=== PATIENT | female | born 1960 | race Caucasian/White ===

== ENCOUNTER 2019-04-22 07:51 | Outpatient (CLI) | payer OTHER, SELFPAY ==
--- NOTE | 2019-04-22 08:08 | DI.RAD_ITS ---
EXAM: XR HAND RT COMPLETE CLINICAL HISTORY: RT THUMB PAIN, M79.644 TECHNIQUE: COMPARISON: No exams were available for comparison FINDINGS: Three views were obtained. Cartilaginous joint spaces of hand appear fairly well maintained. There is minimal marginal osteophyte formation involving the IP joints. Patient reportedly has symptoms re parable to the thumb and the minimal degree of degenerative changes of the 1st MCP joint and IP joint of the thumb are released symmetrical with the minimal degenerative changes noted involving the IP j oints of fingers. IMPRESSION: Minimal DJD as described above.
== END 2019-04-22 08:11 ==
PROVIDERS: PCP Nurse Practitioner Adult Health; Visit Provider Nurse Practitioner Family
DX: M79.644 Pain in right finger(s) (principal); M19.041 Primary osteoarthritis, right hand
CPT/HCPCS: 73130

== ENCOUNTER 2021-04-11 15:08 | Outpatient (REF) | payer OTHER, SELFPAY ==
[2021-04-11 20:07] LABS: COVID-19 RT-PCR UVMMC Result Negative (Negative)
== END 2021-04-11 15:09 | disposition home or self-care (01) ==
LOC: LBN 15:08
PROVIDERS: PCP Nurse Practitioner Adult Health; Visit Provider Nurse Practitioner Family
DX: Z20.822 Contact with and (suspected) exposure to COVID-19 (principal)
CPT/HCPCS: U0003

== ENCOUNTER 2021-09-08 02:24 | Outpatient (CLI) | payer OTHER, SELFPAY ==
[2021-09-08 07:43] LABS: ESR 5 mm/hr (0-30)
[2021-09-08 08:11] LABS: Anion Gap 7.5 mmol/L (3-11); BUN 21 mg/dL (7-18); CO2 29.5 mmol/L (21.0-32.0); CREATININE 0.9 mg/dL (0.55-1.02); Calcium 8.6 mg/dL (8.5-10.1); Calculated LDL 99 mg/dL (<100); Chloride 105 mmol/L (98-107); Cholesterol 190 mg/dL (<200); Folate 12.5 ng/mL (8.6-20.0); Glucose 97 mg/dL (74-106); HDL Cholesterol 79 mg/dL (40-60); Potassium 3.6 mmol/L (3.5-5.1); Sodium 142 mmol/L (136-145); Triglyceride 61 mg/dL (<150)
[2021-09-08 08:24] LABS: Vitamin B12 302 pg/mL (193-986)
[2021-09-08 08:33] LABS: C-Reactive Protein 0.08 mg/dL (0.0-0.3); Creatine Kinase 71 U/L (26-192)
[2021-09-08 08:36] LABS: Hemoglobin A1C 5.8 % (<5.7)
[2021-09-08 09:06] LABS: Vitamin D 25 Total 51.4 ng/mL (30-100)
[2021-09-09 10:29] LABS: Lyme Ab w Rflx to Lyme Confirm Negative (Negative)
[2021-09-09 12:36] LABS: Albumin 60.8 % (55.8-66.1); Albumin g/dL 4.1 g/dL (3.6-5.2); Total Protein 6.7 g/dL (6.3-8.2)
== END 2021-09-08 02:25 | disposition home or self-care (01) ==
LOC: LBO 02:24
PROVIDERS: Psychiatry & Neurology Neurology; PCP Nurse Practitioner Adult Health; Visit Provider Nurse Practitioner Adult Health
DX: G62.9 Polyneuropathy, unspecified; R03.0 Elevated blood-pressure reading, without diagnosis of hypertension; Z13.220 Encounter for screening for lipoid disorders
CPT/HCPCS: 36415; 80048; 80061; 82306; 82550; 85652; 82607; 82746; 83036; 84165; 84443; 86140; 86618

== ENCOUNTER 2021-12-05 07:11 | Inpatient (IN) | payer OTHER, SELFPAY ==
[2021-12-05] VITALS (7 sets, daily range): BP systolic 120–154; BP diastolic 67–84; PULSE 63–90; RESP 14–20; TEMP 36.7–37.6; O2SAT 97–100
--- NOTE | 2021-12-05 07:15 | DI.CT_ITS ---
Exam(s) CT ABDOMEN PELVIS W EXAM: CT ABDOMEN PELVIS W CLINICAL HISTORY: LLQ pain, diarrhea, suspect diverticulitis. TECHNIQUE: Imaging Protocol: Axial computed tomography images with coronal and sagittal reformatted images were created and reviewed CONTRAST MATERIAL: Intravenous: Omnipaque 350 Contrast volume:84 ml Oral: no COMPARISON: No exams were available for comparison FINDINGS: ABDOMEN: Lung Bases: Normal where visualized. Liver: Normal density. No measurable mass. Gallbladder and biliary tract: No radiodense calculus or dilation. Pancreas: Normal density, no abnormal calcifications or inflammatory process. Spleen: Normal. Kidneys: Normal size, contour and axis. No radiodense stones or obstructive uropathy. Tiny bilateral cysts. No suspicious masses seen. Adrenal glands: No masses seen. Abdominal Aorta: Abdominal portion non-dilated. PELVIS: Bladder: No gross wall thickening. No calculi.No focal mass. Bowel: Diverticulosis is noted in the descending and sigmoid colon. There is extensive inflammation around the sigmoid consistent with diverticulitis. No abscess is seen. There are few bubbles of air in the mesentery consistent with micro perforation.. Appendix normal. Stomach and small bowel are unremarkable. Peritoneal cavity: Small amount of fluid is noted in the pelvis. Bones: Within normal limits for age. Reproductive organs: Within normal limits. Lymph nodes: Unremarkable. Impression: Sigmoid diverticulitis with microperforation. No abscess. Small amount of pelvic fluid. RADIATION DOSE DELIVERED: 665.38mGy.cm Total DLP DATA REPOSITORY: All CT scans at this facility are submitted to the National Radiology Data Registry (NRDR) Dose Index Registry (DIR) with the [employer] (ACR). RADIATION OPTIMIZATION: All CT scans at this facility use at least one of these dose optimization te chniques: automated exposure control; mA and/or kV adjustment per patient size (includes targeted exa ms where dose is matched to clinical indication); or iterative reconstruction.
--- OUTSIDE RECORDS SUMMARY | 2021-12-05 07:21 | XMS_ITS | Encounter Summary ---
:1960 Author Organization [facility] [place] [address] Care Team Providers Name Role Phone Randa Edward MD Primary Care Provider Reason for Visit Reason Onset Date Comments Results 02/28/2011 [email or web address] 03-01 Encounter Details Date Type Department Care Team Description 02/28/2011 Telephone [facility] Sudeep Lew Jr., [facility] [email or web address] [address] [facility] [address] 05-01-2010) [place] [address] [place] [address] [phone] (Wo rk) Social History Tobacco Use Types Packs/Day Years Used Date Never Assessed Sex Assigned at Date Recorded Not on file documented as of this encounter Miscellaneous Notes Telephone Encounter - Sudeep Lew Jr., MD - 03/02/2011 7:42 AM EST Result faxed documented in this encounter Plan of Treatment Not on filedocumented as of this encounter Visit Diagnoses Not on filedocumented in this encounter Care Teams Feedmobile Driver Relationship Specialty Start Date End Date Randa Edward MD PCP - General 03/08/11 07/31/11 documented as of this encounter
--- OUTSIDE RECORDS SUMMARY | 2021-12-05 07:21 | XMS_ITS | Encounter Summary ---
:1960 Demographics Phone Unavailable Preferred Language Unknown Marital Status Unknown Anglican Affiliation Unknown Race Unknown Ethnic Group Unknown Author Organization [facility] Address [address] [place] [address] Care Team Providers Name Role Phone Unavailable Primary Care Provider Unavailable Encounter Details Date Type Department Care Team Description 10/15/2007 Before PRISM Converted [facility] - Miladis Edward, Visit (Ginny) Ginny sequeira MD [address] [place] [address] [place], [place] [phone] Social History Tobacco Use Types Packs/Day Years Used Date Never Assessed Sex Assigned at Date Recorded Not on file documented as of this encounter Plan of Treatment Not on filedocumented as of this encounter Procedures Procedure Name Priority Date/Time Associated Diagnosis Comme [facility] CYTOPATHOLOGY Routine 10/15/2007 0:00 EDT Results for this procedure are i n the results section . documented in this encounter Results CYTOPATHOLOGY (10/15/2007 0:00 EDT) Pathology Report: CYTOPATHOLOGY REPORT ? [facility] ? LAB Reports generated via electr [employer] interface contain original data; ? however they are lacking the format of the original report. ? Caution should be taken when reading/interpreting unformatted reports. ? Name: ? PATRICIA, SIENA ? Accession #: ? [id number] ? : ? 1960 (Age: 46) ??F ?Collect Date: ? 10/15/2007 ? Location: ? [facility] ? Receive Date: ? 10/16/2007 ? Provider: ?MARINA S MITH MD ? Copy to: ? Specimen/Source: ? ThinPrep Pap Test, Endocervix, processed on Cytyc ? ThinPrep Imaging System, wit h manual evaluation ? Last Menstrual Period: ? Other: ? HPVA - HPV testing requested if ASC-US on the current ThinPrep Pap test. ? SPECIMEN ADEQUACY ? Satisfactory for Eval uation ? - transformation zone compon ent present ? GENERAL CATEGORIZATION ? Negative for Intraepi thelial Lesion or Malignancy ? Document reviewed and electr onically signed by: ? Magali Weston, SCT( ASCP) ? Report Date: ??07/23/ 2008 10:55 ? End of Report ? Specimen Performing Organization Address City/State/ZIP Code Phon e Number [facility] [address] [place] [phone] [facility] [address] [place] [address] documented in this encounter Visit Diagnoses Not on filedocumented in this encounter
--- OUTSIDE RECORDS SUMMARY | 2021-12-05 07:21 | XMS_ITS | Encounter Summary ---
:1960 Demographics Phone Unavailable Preferred Language Unknown Marital Status Unknown Moravian Affiliation Unknown Race Unknown Ethnic Group Unknown Author Organization [facility] Address [address] [place] [address] Care Team Providers Name Role Phone Unavailable Primary Care Provider Unavailable Encounter Details Date Type Department Care Team Description 02/15/2011 Results Only [facility] Zaki Edward MD Laboratory Services [place] [address] [address] [facility] [place] [address] [phone] Social History Tobacco Use Types Packs/Day Years Used Date Never Assessed Sex Assigned at Date Recorded Not on file documented as of this encounter Plan of Treatment Not on filedocumented as of this encounter Procedures Procedure Name Priority Date/Time Associated Diagnosis Comme nts PAP TEST- RESULT Routine 02/15/2011 0:00 EST Resu lts for this ONLY procedure are i n the results section. documented in this encounter Results PAP TEST- RESULT ONLY (02/15/2011 0:00 EST) Pathology Report: CYTOPATHOLOGY REPORT [facility] Reports generated via electronic interface contain rainer ginal data; however they are lacking the format of the original re port. Caution should be taken when reading/interpreting unfo rmatted reports. Name: ? SIENA GOMEZ ? Accession #: ? [id number] : ? 1960 (Age: 50) ??F ?Collect Date: ? 01/31 Location: ? [facility] ? Receive Date : ? 02/17/2011 Provider: ?MARINA EDWARD MD Copy to: ? Specimen/Source: ?Pap Test, En docervix, ThinPrep Imaging System with manual evaluation Last Menstrual Period: ? 2009 ? SPECIMEN ADEQUACY ? Satisfactory for Evaluation - transformation zone component present GENERAL CATEGORIZATION ? Negative for Intraepithelial Lesion or Malignan cy ? Document reviewed and electronically signed by: ? TANVIR Murray(ASCP) ? Report Date: ??02/22/2011 12:26 End of Report Specimen Performing Organization Address City/State/ZIP Code Phon e Number [facility] [address] [place] [address] [facility] [address] [place] [address] documented in this encounter Visit Diagnoses Not on filedocumented in this encounter
--- OUTSIDE RECORDS SUMMARY | 2021-12-05 07:21 | XMS_ITS | Encounter Summary ---
:1960 Author Organization [facility] [place] [address] Care Team Providers Name Role Phone Kaylin Walden APRN Primary Care Provider [phone] Reason for Visit Reason Comments Skin Check Consultation (Routine) - Specialty Diagnoses / Procedures Referred By Contact Refer red To Contact Dermatology Diagnoses Other specified disorders of the skin and subcutaneous tissue Skin Lesion; New Patient-Notes Received Kaylin Walden Hammer, Charle s J, MD Procedures Consult OIL CHANGE TECHNICIAN [address] [facility] [place] D[facility]MATOLOGY [place], [place] [phone] Referral ID Status Reason Start Date Expiration Date Visits V isits Requested Authorized [id number] Consult, Test 09/23/2019 09/22/2020 6 6 & Treat PCP Updated and/or Approved Encounter Details Date Type Department Care Team Description 03/22/2020 Office Visit Dermatology at Alexis Gutierrez, Seborrh eic keratosis Delia BHARDWAJ [address] [facility] [place] B DERMATOLOGY [place], [place] [id number] [phone] Social History Tobacco Use Types Packs/Day Years Used Date Former Smoker Cigarettes 0.25 7 Quit: 04/02/18 82 Smokeless Tobacco: Never Used Sex Assigned at Date Recorded Not on file documented as of this encounter Progress Notes Alexis Gutierrez MD - 03/22/2020 8:30 AM EST Problem: Changing lesion right anterior daniel 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 Her PCP Dr. Edward at the time recommend that this be checked and now she has decided to do so. Physical examination reveals a pleasant 59-year-old woman who has a flat seborrheic keratosis measuring about 10 mm in diameter with an ovoid shape on the lower right anterior daniel. At its inferior pole it has a hyperkeratotic papule consistent with additional seborrheic keratosis developing. There isno surrounding erythema nor induration. She has no other skin lesions of concern and does not tamar total body skin examination today. Assessment plan: Seborrheic keratosis right anterior daniel 1. Patient reassured about benign seborrheic keratosis and the benign changes that she is observed within it, namely the hyperkeratotic papule 2. No treatment necessary 3. Site is asymptomatic; return to clinic as needed CC: Kaylin Walden APRN documented in this encounter Plan of Treatment Not on filedocumented as of this encounter Visit Diagnoses Diagnosis Seborrheic keratosis Other seborrheic keratosis documented in this encounter Care Teams Yarding Engineer Relationship Specialty Start Date End Date Kaylin Walden APRN PCP - General Family Medicine 09/26/19 [place] [id number] documented as of this encounter
--- OUTSIDE RECORDS SUMMARY | 2021-12-05 07:21 | XMS_ITS | Encounter Summary ---
:1960 Demographics Phone Unavailable Preferred Language Unknown Marital Status Unknown Gnosticism Affiliation Unknown Race Unknown Ethnic Group Unknown Author Organization [facility] Address [address] [place] [address] Care Team Providers Name Role Phone Unavailable Primary Care Provider Unavailable Encounter Details Date Type Department Care Team Description 02/03/2021 Lab Requisition [facility] Outr Resulting Lab, Pathology & Laboratory Provider [facility] [address] [place] [address] Social History Tobacco Use Types Packs/Day Years Used Date Never Assessed Sex Assigned at Date Recorded Not on file documented as of this encounter Plan of Treatment Not on filedocumented as of this encounter Procedures Procedure Name Priority Date/Time Associated Diagnosis Comme nts COVID-19 TEST [facility] Today 02/02/2021 8:00 EDT LAB PCR COVID-19 TESTING Routine 02/02/2021 8:00 EDT Resu lts for this procedure are i n the results section. documented in this encounter Results COVID-19 TEST [facility] LAB PCR (02/02/2021 8:00 EDT) Specimen Swab - Entire nasopharynx (body structur e) Performing Organization Address City/State/ZIP Code Phon e Number [facility] [address] [place] [address] SERVICES COVID-19 TESTING (02/02/2021 8:00 EDT) COVID-19 rt-PCR Negative Negative [facility] Result Comment: [facility] This test has not been FDA c leared or approved. This test has been authorized by FDA under an EUA for use by authorized laboratories. This test has been authorized only for detection of nucleic acid fro SERVICES m 2019-nCoV, not for any oth er viruses or pathogens. This test is only authorized for the duration of the declaration that circumstances exist justifying the authorization of emergency use of in vitro d iagnostic tests for detectio n and/or diagnosis of 2019-nCoV under section 564(b)(1) of Act, 21 U.S.C ?? 360bbb-3(b) (1), unless the authorization is terminated or revoked sooner. Negative results do not prec lude 2019-nCoV infection and should not be used as the sole basis for treatment or other patient management decisions. Negative results must be combined with clinical observa tions, patient history, and epidemiological informatio n. Performed on the [employer]her Fusion instrument Performing Lab [place] [facility] Lab [facility] SERVICES Specimen Swab Performing Organization Address City/State/ZIP Code Phon e Number [facility] [address] [phone] SERVICES documented in this encounter Visit Diagnoses Not on filedocumented in this encounter
--- OUTSIDE RECORDS SUMMARY | 2021-12-05 07:21 | XMS_ITS | Encounter Summary ---
:1960 Author Organization [facility] [place] [address] Care Team Providers Name Role Phone Marina Edward MD Primary Care Provider Reason for Visit Reason Comments Palpitations Started last Apr before her bike trip. Did have some dizziness Encounter Details Date Type Department Care Team Description 03/08/2011 Office Visit [facility] Sudeep Lew Jr., SV T (supraventricular tachycardia) (Primary Dx); [facility] Palpitations [address] [place] [address] [place] [address] [phone] (Wo rk) Social History Tobacco Use Types Packs/Day Years Used Date Former Smoker Cigarettes 0.25 7 Quit: 04/02/18 80 Smokeless Tobacco: Never Used Sex Assigned at Date Recorded Not on file documented as of this encounter Last Filed Vital Signs Vital Sign Reading Time Taken Comments Blood Pressure 110/80 03/08/2011 4:12 PM EST standing Pulse 54 03/08/2011 4:03 PM EST reg Temperature - - Respiratory Rate - - Oxygen Saturation - - Inhaled Oxygen Concentration - - Weight 62.6 kg (138 lb) 03/08/2011 4:03 PM EST Height 167.6 cm (5' 6) 03/08/2011 4:03 PM EST Body Mass Index 22.27 03/08/2011 4:03 PM EST documented in this encounter Progress Notes Sudeep Lew Jr., MD - 03/08/2011 6:04 PM EST Referring PCP: MARINA EDWARD MD Cardiology consultation History: Siena Delarosa is a 50 y.o. old female seen at the request of MARINA EDWARD MD for evaluation of paroxysmal SVT. She has a history of intermittent palpitations for years. They were worselast spring and she had a holter then loop recorder (see below). She gets palpitations lasting for seconds both with and without exertion. There are no associated symptoms and if they occur with exertion she does not need to stop. She has had no change in exercise tolerance, no change in energy level,no chest pain, dyspnea, or other cardiac symptoms. Her BP has been borderline. She was given a diuretic in the past but was dizzy with standing. She was recently prescribed lisinopril but has not started it because of the past dizziness. Allergies Allergen Reactions ??? Penicillins rash ??? Hydrochlorothiazide dizziness Current outpatient prescriptions Medication Sig Dispense Refill ??? senna-docusate (PERICOLACE) 8.6-50 mg per tablet Take 2 tablets by mouth daily. ??? triamcinolone (KENALOG) 0.1 % cream Apply topically as needed. ??? DISCONTD: lisinopril (PRINIVIL;ZESTRIL) 2.5 mg tablet Take 2.5 mg by mouth daily. 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 PMI not displaced. 1/6 systolic murmur at apex, no rub or gallop Abd: soft, no L/S/K enlargement or bruits Ext: Pulses preserved, equal bilaterally, no edema, cyanosis or clubbing Musculoskeletal: no muscle tenderness, no joint deformities Neuro: grossly nonfocal Psych: normal affect, appropriate EKG: SB 54, normal Lab data: none for review Assessment: 1) palpitations from VPCs and brief SVT- would not treat unless more frequent/symptomatic. Keep hydrated when exercising and check K and Mg if symptoms worsen. 2) HTN with significant orthostatic drop- would not treat unless hypertensive when standing 3) mild MR- not symptomatic-no special precautions Plan: 1) A discussion was held concerning the patient's chief complaints, the presumptive diagnosis(es) and the options for further evaluation and management. Reviewed the assessment above and the recommendations below in detail. 2) no change in medical therapy 3) follow up PRN if symptoms worsen documented in this encounter Miscellaneous Notes Communication Body - Sudeep Lew Jr., MD - 03/08/2011 6:11 PM EST Referring PCP: MARINA EDWARD MD Cardiology consultation History: Siena Delarosa is a 50 y.o. old female seen at the request of MARINA EDWARD MD for evaluation of paroxysmal SVT. She has a history of intermittent palpitations for years. They were worselast spring and she had a holter then loop recorder (see below). She gets palpitations lasting for seconds both with and without exertion. There are no associated symptoms and if they occur with exertion she does not need to stop. She has had no change in exercise tolerance, no change in energy level,no chest pain, dyspnea, or other cardiac symptoms. Her BP has been borderline. She was given a diuretic in the past but was dizzy with standing. She was recently prescribed lisinopril but has not started it because of the past dizziness. Allergies Allergen Reactions ??? Penicillins rash ??? Hydrochlorothiazide dizziness Current outpatient prescriptions Medication Sig Dispense Refill ??? senna-docusate (PERICOLACE) 8.6-50 mg per tablet Take 2 tablets by mouth daily. ??? triamcinolone (KENALOG) 0.1 % cream Apply topically as needed. ??? DISCONTD: lisinopril (PRINIVIL;ZESTRIL) 2.5 mg tablet Take 2.5 mg by mouth daily. 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 PMI not displaced. 1/6 systolic murmur at apex, no rub or gallop Abd: soft, no L/S/K enlargement or bruits Ext: Pulses preserved, equal bilaterally, no edema, cyanosis or clubbing Musculoskeletal: no muscle tenderness, no joint deformities Neuro: grossly nonfocal Psych: normal affect, appropriate EKG: SB 54, normal Lab data: none for review Assessment: 1) palpitations from VPCs and brief SVT- would not treat unless more frequent/symptomatic. Keep hydrated when exercising and check K and Mg if symptoms worsen. 2) HTN with significant orthostatic drop- would not treat unless hypertensive when standing 3) mild MR- not symptomatic-no special precautions Plan: 1) A discussion was held concerning the patient's chief complaints, the presumptive diagnosis(es) and the options for further evaluation and management. Reviewed the assessment above and the recommendations below in detail. 2) no change in medical therapy 3) follow up PRN if symptoms worsen documented in this encounter Plan of Treatment Not on filedocumented as of this encounter Visit Diagnoses Diagnosis SVT (supraventricular tachycardia) - Hannah keerthi Other specified cardiac dysrhythmias Palpitations documented in this encounter Care Teams C.O.D. Audit Clerk Relationship Specialty Start Date End Date Marina Edward MD PCP - General 03/08/11 07/31/11 documented as of this encounter
--- OUTSIDE RECORDS SUMMARY | 2021-12-05 07:21 | XMS_ITS | Encounter Summary ---
:1960 Demographics Phone Unavailable Preferred Language Unknown Marital Status Unknown Religion Affiliation Unknown Race Unknown Ethnic Group Unknown Author Organization [facility] Address [address] [place] [address] Care Team Providers Name Role Phone Unavailable Primary Care Provider Unavailable Encounter Details Date Type Department Care Team Description 04/16/2003 Results Only [facility] - Praveena Dunne MD conversion [address] [place] [address] [place] [address] [phone] Social History Tobacco Use Types Packs/Day Years Used Date Never Assessed Sex Assigned at Date Recorded Not on file documented as of this encounter Plan of Treatment Not on filedocumented as of this encounter Procedures Procedure Name Priority Date/Time Associated Diagnosis Comme nts CYTOPATHOLOGY Routine 04/16/2003 0:00 EST Results for this procedure are i n the results section . documented in this encounter Results CYTOPATHOLOGY (04/16/2003 0:00 EST) Pathology Report: CYTOPATHOLOGY REPORT [facility] Reports generated via electronic interface contain rainer ginal data; however they are lacking the format of the original re port. Caution should be taken when reading/interpreting unfo rmatted reports. Name: ? SIENA GOMEZ ? Accession #: ? [id number] : ? 1960 (Age: 42) ??F ?Collect Date: ? 04/02 Location: ? [facility] ? Receive Date : ? 04/20/2003 Provider: ?PRAVEENA WETZEL MD Copy to: ? Specimen/Source: ?ThinPrep Pap Test, Cervix/ Endocervix Last Menstrual Period: ? 04/04/03 ? SPECIMEN ADEQUACY ? Satisfactory for Evaluation - transformation zone component present GENERAL CATEGORIZATION ? Negative for Intraepithelial Lesion or Malignan cy ? Document reviewed and electronically signed by: ? Tegan Carlos, SCT(ASCP) ? Report Date: ??04/23/2003 12:19 End of Report Specimen Performing Organization Address City/State/ZIP Code Phon e Number [facility] [address] [place] [address] SERVICES [facility] [address] [place] [address] documented in this encounter Visit Diagnoses Not on filedocumented in this encounter
--- OUTSIDE RECORDS SUMMARY | 2021-12-05 07:21 | XMS_ITS | Encounter Summary ---
:1960 Demographics Phone Unavailable Preferred Language Unknown Marital Status Unknown Sabianist Affiliation Unknown Race Unknown Ethnic Group Unknown Author Organization [facility] Address [address] [place] [address] Care Team Providers Name Role Phone Unavailable Primary Care Provider Unavailable Encounter Details Date Type Department Care Team Description 01/17/2021 Lab Requisition [facility] Outr Resulting Lab, Pathology & Laboratory Provider [facility] [address] [place] [address] Social History Tobacco Use Types Packs/Day Years Used Date Never Assessed Sex Assigned at Date Recorded Not on file documented as of this encounter Plan of Treatment Not on filedocumented as of this encounter Procedures Procedure Name Priority Date/Time Associated Diagnosis Comme nts COVID-19 TEST [facility] Today 01/17/2021 10:00 LAB PCR EDT COVID-19 TESTING Routine 01/17/2021 10:00 Results for this EDT procedure are i n the results section. documented in this encounter Results COVID-19 TEST [facility] PCR (01/17/2021 10:00 EDT) Specimen Swab - Entire nasopharynx (body structur e) Performing Organization Address City/State/ZIP Code Phon e Number [facility] [address] [place] [address] SERVICES COVID-19 TESTING (01/17/2021 10:00 EDT) COVID-19 rt-PCR Negative Negative [facility] Result Comment: [facility] This test has not been FDA [...] and epidemiological informatio n. Performed on the [employer] Fusion instrument Performing Lab [place] [facility] Lab [facility] SERVICES Specimen Swab Performing Organization Address City/State/ZIP Code Phon e Number [facility] [address] [place] [address] SERVICES documented in this encounter Visit Diagnoses Not on filedocumented in this encounter
--- OUTSIDE RECORDS SUMMARY | 2021-12-05 07:21 | XMS_ITS | Encounter Summary ---
:1960 Demographics Phone Unavailable Preferred Language Unknown Marital Status Unknown Alevism Affiliation Unknown Race Unknown Ethnic Group Unknown Author Organization [facility] Address [address] [place] [address] Care Team Providers Name Role Phone Unavailable Primary Care Provider Unavailable Encounter Details Date Type Department Care Team Description 07/17/2014 Results Only [facility]- Marina Sampson MD [phone] [address] [place], [place] [address] (Wo rk) Social History Tobacco Use Types Packs/Day Years Used Date Never Assessed Sex Assigned at Date Recorded Not on file documented as of this encounter Plan of Treatment Not on filedocumented as of this encounter Procedures Procedure Name Priority Date/Time Associated Diagnosis Comme nts PAP TEST- RESULT Routine 07/17/2014 0:00 EDT Resu lts for this ONLY procedure are i n the results section. documented in this encounter Results PAP TEST- RESULT ONLY (07/17/2014 0:00 EDT) Pathology Report: CYTOPATHOLOGY REPORT [facility] Reports generated via electronic interface contain rainer ginal data; SERVICES however they are lacking the format of the original re port. Caution should be taken when reading/interpreting unfo rmatted reports. Name: ? SIENA GOMEZ ? Accession #: ? [id number] : ? 1960 (Age: 53) ??F ?Collect Date: ? 07/01 Location: ? [facility] ? Receive Date : ? 07/21/2014 Provider: ?AMRINA HOGAN MD Copy to: ? Specimen/Source: ? Pap Test, Cervix/Endocervix, ThinPrep Imaging System with manual evaluation Last Menstrual Period: ? Menstrual/ Status: ? Post Menopausal ? SPECIMEN ADEQUACY ? Satisfactory for Evaluation - transformation zone component present GENERAL CATEGORIZATION ? Negative for Intraepithelial Lesion or Malignan cy ? Document reviewed and electronically signed by: ? TANVIR Low(ASCP) ? Report Date: ??07/28/2014 14:18 End of Report Specimen Performing Organization Address City/State/ZIP Code Phon e Number [facility] [address] [place] [address] SERVICES documented in this encounter Visit Diagnoses Not on filedocumented in this encounter
--- OUTSIDE RECORDS SUMMARY | 2021-12-05 07:21 | XMS_ITS | Clinical Summary ---
:1960 Demographics Phone Unavailable Preferred Language Unknown Marital Status Unknown Orthodoxy Affiliation Unknown Race Unknown Ethnic Group Unknown Author Organization [facility] Address [address] [place] [address] Care Team Providers Name Role Phone Unavailable Primary Care Provider Unavailable Encounters Date Type Specialty Care Team Description 09/08/2021 Lab Requisition Clinical Laboratory Outr Resulting Lab , Provider from Last 3 Months Social History Tobacco Use Types Packs/Day Years Used Date Never Assessed Sex Assigned at Date Recorded Not on file Plan of Treatment Not on file Procedures Procedure Name Priority Date/Time Associated Comments Diagnosis SPEP, INCLUDES Today 09/08/2021 7:28 Results fo r this QUANTITATION OF EDT procedure ar e in MONOCLONAL SPIKE the results PERFORMABLE section. PROTEIN, TOTAL Today 09/08/2021 7:28 EDT SPEP, INCLUDES Routine 09/08/2021 7:28 Results fo r this QUANTITATION OF EDT procedure ar e in MONOCLONAL SPIKE the results section. LYME AB Routine 09/08/2021 7:28 Results for this EDT procedure are i n the results section. from Last 3 Months Results SPEP, INCLUDES QUANTITATION OF MONOCLONAL SPIKE PERFORMABLE (09/08/2021 7:28 EDT) Albumin % 60.8 55.8 - 66.1 % [facility] SERVICES Albumin g/dL 4.1 3.6 - 5.2 g/dL [facility] SERVICES Alpha-1 % 4.1 2.9 - 4.9 % [facility] SERVICES Alpha-1 g/dL 0.30 0.15 - 0.40 [facility] g/dL LABORATORY SERVICES Alpha-2 % 9.6 7.1 - 11.8 % [facility] SERVICES Alpha-2 g/dL 0.60 0.50 - 1.00 [facility] g/dL LABORATORY SERVICES Beta % 11.2 8.4 - 13.1 % [facility] SERVICES Beta g/dL 0.80 0.60 - 1.20 [facility] g/dL LABORATORY SERVICES Gamma % 14.3 11.1 - 18.8 % [facility] SERVICES Gamma g/dL 1.00 0.60 - 1.60 [facility] g/dL LABORATORY SERVICES SPEP Comment No apparent [facility] monoclonal protein LABORATORY SERVICES seen on serum electrophoresisComm ent: See scanned/supplementa ry report. Total Protein 6.7 6.3 - 8.2 g/dL [facility] SERVICES Specimen Blood - Venous blood (substance) Narrative This result has an attachment that is no t available. Performing Organization Address City/State/ZIP Code Phon e Number [facility] [address] [place] [address] SERVICES LYME AB (09/08/2021 7:28 EDT) Pathologist Sig nature Lyme Ab Negative Negative [facility] LABORATOR Y SERVICES Specimen Blood - Venous blood (substance) Performing Organization Address City/State/ZIP Code Phon e Number [facility] [address] [place] [address] SERVICES PROTEIN, TOTAL (09/08/2021 7:28 EDT) Specimen Blood - Venous blood (substance) Performing Organization Address City/[facility]/ZIP Code Phon e Number [facility] [address] [place] [address] SERVICES from Last 3 Months
--- OUTSIDE RECORDS SUMMARY | 2021-12-05 07:21 | XMS_ITS | Clinical Summary ---
:1960 Author Organization [facility] [place] [address] Care Team Providers Name Role Phone IramKaylin bolaños MIGUEL Primary Care Provider [phone] Allergies Active Allergy Reactions Severity Noted Date Comments Hydrochlorothiazide 03/01/2011 Dizzines s Penicillins Rash 03/01/2011 Medications Medication Sig Dispensed Refills Start Date End Date Status amitriptyline (Elavil) TAKE 1 TABLET BY 0 03/17/2020 Active 25 mg Tablet MOUTH EVERY MORNING cholecalciferol, Take 2,000 Units 0 Active Vitamin D3, by mouth daily. (cholecalciferol, Vitamin D3,) 50 mcg (2,000 unit) Capsule Active Problems Problem Noted Date Palpitations 03/08/2011 Overview: Brief SVT on loop recorder Social History Tobacco Use Types Packs/Day Years Used Date Former Smoker Cigarettes 0.25 7 Quit: 04/02/18 82 Smokeless Tobacco: Never Used Sex Assigned at Date Recorded Not on file Last Filed Vital Signs Vital Sign Reading [...] Mass Index 22.27 03/08/2011 4:03 PM EST Plan of Treatment Health Maintenance Due Date Last Done Comments Covid-19 Vaccine (#1) 12/14/1963 HIV screen 1976 Hepatitis C Screening 1976 Tdap adult 1977 Tetanus vaccine 1977 HPV test 1988 PAP Smear 1988 Breast Cancer Share Decision Needed 1998 Colonoscopy 12/14/2003 Breast Cancer screening 2008 Zoster vaccine (1 of 2) 2008 Advance Directive 2013 Influenza (Flu) vaccine (1 of 1 - Influenza standard 12/01/2021 series) Insurance Payer Benefit Plan / Subscriber ID Effective Dates Phone Addre ss Type Group HEALTH PLANS HEALTH PLANS [id number] 2015-Rubi [phone] [address] [place] [address] Care Teams Tattoo Technician Relationship Specialty Start Date End Date Kaylin Walden APRN PCP - General Family Medicine 09/26/19 [facility] [place] [address]
--- OUTSIDE RECORDS SUMMARY | 2021-12-05 07:21 | XMS_ITS | Encounter Summary ---
:1960 Demographics Phone Unavailable Preferred Language Unknown Marital Status Unknown Mosque Affiliation Unknown Race Unknown Ethnic Group Unknown Author Organization [facility] Address [address] [place] [address] Care Team Providers Name Role Phone Unavailable Primary Care Provider Unavailable Encounter Details Date Type Department Care Team Description 04/11/2021 Lab Requisition [facility] Outr Resulting Lab, Pathology & Laboratory Provider [facility] [address] [place] [address] Social History Tobacco Use Types Packs/Day Years Used Date Never Assessed Sex Assigned at Date Recorded Not on file documented as of this encounter Plan of Treatment Not on filedocumented as of this encounter Procedures Procedure Name Priority Date/Time Associated Diagnosis Comme nts COVID-19 TEST [facility] Today 04/11/2021 8:00 EST LAB PCR COVID-19 TESTING Routine 04/11/2021 8:00 EST Resu lts for this procedure are i n the results section. documented in this encounter Results COVID-19 TEST [facility] PCR (04/11/2021 8:00 EST) Specimen Swab Performing Organization Address City/State/ZIP Code Phon e Number [facility] [address] [place] [address] SERVICES COVID-19 TESTING (04/11/2021 8:00 EST) COVID-19 rt-PCR Negative Negative [facility] Result Comment: [facility] This test [...] and epidemiological informatio n. Performed on the [employer]her Fusion instrument Performing Lab [place] [facility] Lab [facility] SERVICES Specimen Swab Performing Organization Address City/State/ZIP Code Phon e Number [facility] [address] [place] [address] SERVICES documented in this encounter Visit Diagnoses Not on filedocumented in this encounter
--- OUTSIDE RECORDS SUMMARY | 2021-12-05 07:21 | XMS_ITS | Encounter Summary ---
:1960 Author Organization [facility] [place] [address] Care Team Providers Name Role Phone Praveena Guzmán MD Primary Care Provider Encounter Details Date Type Department Care Team Description 03/01/2011 Abstract [facility] Monica Rondon, RN [address] [place] [id number] Social History Tobacco Use Types Packs/Day Years Used Date Never Assessed Sex Assigned at Date Recorded Not on file documented as of this encounter Plan of Treatment Not on filedocumented as of this encounter Visit Diagnoses Not on filedocumented in this encounter Care Teams Access Specialist Relationship Specialty Start Date End Date Praveena Guzmán MD PCP - General 02/22/10 03/07/11 [address] [place] [address] documented as of this encounter
--- NOTE | 2021-12-05 07:22 | W.ED.GENAD ---
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 Patient admits to chills but denies fever. She admits to nausea but denies vomiting. She denies any previous abdominal surgeries. She denies having symptoms like this in the past. No recent foreign travel or antibiotic use. No other sick contacts. No vaginal discharge. Pain is made worse with movement. Improved by nothing. No other complaints at this time. physical exam demonstrates positive left lower quadrant tenderness, mild guarding. Minimal rebound. No signs of an acute surgical abdomen no. No right lower quadrant tenderness of significance. Differential is highest for diverticulitis, abscess less likely. Patient does not want anything for pain at this time. We will gently rehydrate, get a CT scan, monitor closely and reassess. Patient will be signed out to my colleague Dr. Cheng for follow-up on labs and imaging. HPI General Date/Time Provider Initiated Documentation: 12/05/21 07:20. 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 Patient admits to chills but denies fever. She admits to nausea but denies vomiting. She denies any previous abdominal surgeries. She denies having symptoms like this in the past. No recent foreign travel or antibiotic use. No other sick contacts. No vaginal discharge. Pain is made worse with movement. Improved by nothing. No other complaints at this time. Related Data Home Medications Medication Instructions Recorded Confirmed amitriptyline 10 mg tablet 10 mg PO DAILY 09/01/21 09/06/21 cholecalciferol (vitamin D3) 50 50 mcg PO DAILY 09/01/21 mcg (2,000 unit) capsule varicella-zoster gE vac,2 of 2 50 0.5 ml IM ONCE 09/01/21 mcg IM suspension (Shingrix gE Antigen Component) Allergies Allergy/AdvReac Type Severity Reaction Status Date / Time Penicillins Allergy Verified 09/06/21 13:55 General Stated Complaint: Abd Prob JEFF: 3 Review of Systems All systems reviewed & are unremarkable except as noted in HPI and below PFSH All Active Problems (Updated 12/05/21 @ 07:27 by Kyle Whatley DO) Abdominal pain, LLQ (Acute) Left shoulder pain (Acute) Paresthesias (Acute) Vision loss of right eye (Acute) Injury of right thumb (Acute) Skier's thumb vs bony contusion Medical History Anxiety Benign fasciculation-cramp syndrome History of IBS Labile hypertension Peripheral neuropathy Seborrheic keratosis Urinary incontinence Visual disturbance Surgical History H/O basal cell carcinoma excision Family History Father CAD (coronary artery disease) Hypertension Depression Cancer SMALL CELL LUNG CANCER Mother Hypertension Anxiety Breast cancer Brother Hypertension Depression Stroke HEMORRHAGIC STROKE AT AGE 51 Sister Hypertension Multiple polyps of sigmoid colon Sjogrens syndrome Sister Depression Paternal Aunt Diabetes Stroke Maternal Grandfather Stroke Maternal Grandmother Hypothyroidism Stroke Maternal Uncle Colon cancer Social History Smoking/Tobacco Use Status: Former Tobacco Use Smoking risk assessment performed?: Yes Alcohol Intake: current Alcohol Intake frequency: a few times a week Alcohol type: wine Details: 1 DRINK PER DAY Drug use: Current Sobriety Number of Children: 2 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 3.ENT: Atraumatic external nose and ears. Moist MM. Neck: Symmetric, trachea midline, No thyromegaly. 4.CVS: +S1/S2, No murmurs or gallops. Peripheral pulses 2+ and equal in all extremities. Brisk capillary refill in all extremities. 5.RESP: Unlabored respiratory effort. Clear to auscultation bilaterally. No wheezes rales or rhonchi 6.GI: Soft, nondistended, no guarding. Positive rebound for the left lower quadrant. Positive tenderness on palpation of the left lower quadrant. No pain at McBurney's point, negative Catalan sign. 7.MSK: Normocephalic/Atraumatic, Extremities w/o deformity or ttp No cyanosis or clubbing, Normal movement of all extremities 8.Skin: Warm, Dry. No rashes or lesions. 9.Neuro: cooperative education coordinator II-XII grossly intact. Sensation grossly intact, no focal neurologic deficits. 10.Psych: (AAO) x3. Appropriate mood and affect Course Vital Signs Vital signs: Vital Signs Temperature 37.6 C 12/05/21 07:16 Pulse 90 12/05/21 07:16 Respiratory Rate 18 12/05/21 07:16 Blood Pressure 154/67 H 12/05/21 07:16 Pulse Oximetry 100 12/05/21 07:16 Temperature 37.6 C 12/05/21 07:16 Temperature Source Temporal Artery Scan 12/05/21 07:16 Pulse 90 12/05/21 07:16 Respiratory Rate 18 12/05/21 07:16 Blood Pressure 154/67 H 12/05/21 07:16 Blood Pressure Position Sitting 12/05/21 07:16 Pulse Oximetry 100 12/05/21 07:16 Oxygen Delivery Method Room Air 12/05/21 07:16 Oxygen Flow Rate 0 12/05/21 07:16
[2021-12-05 07:39] LABS: Abs Immature Grans 0.07 10^3/uL (0.0-0.06); Absolute Basophil Count 0.04 10^3/uL (0.0-0.2); Absolute Lymphocyte Count 1.32 10^3/uL (1.2-3.4); Basophils % 0.2; Eosinophils % 0.1; HCT 39.8 % (36.0-46.0); HGB 13.2 g/dL (11.2-15.7); Immature Grans % 0.4; Lymphocytes % 7.4; MCH 30.9 pg (27.0-33.0); MCHC 33.2 % (32.0-36.0); MCV 93 fL (80-95); MPV 9.1 fL (8.0-11.0); Monocytes % 7.8; Neutrophils % 84.1; Platelet Count 282 10^3/uL (130-400); RBC 4.27 10^6/uL (3.93-5.22); RDW 13.6 % (11.7-14.6); RDW-SD 46.5 fL; WBC 17.78 10^3/uL (4.4-10.8)
[2021-12-05 07:41] LABS: Absolute Eosinophil Count 0.02 10^3/uL (0.0-0.7); Absolute Monocyte Count 1.39 10^3/uL (0.1-0.8); Absolute Neutrophil Count 14.95 10^3/uL (1.2-6.7)
[2021-12-05] MEDS: Normal Saline 500 ML IV (07:56)
[2021-12-05 08:00] LABS: ALT 38 U/L (14-59); AST 25 U/L (15-37); Albumin 3.7 g/dL (3.4-5.0); Alkaline Phosphatase 77 U/L (46-116); Anion Gap 6.4 mmol/L (3-11); BUN 16 mg/dL (7-18); Bilirubin, Total 1.2 mg/dL (0.2-1.0); CO2 30.6 mmol/L (21.0-32.0); Calcium 9.2 mg/dL (8.5-10.1); Chloride 102 mmol/L (98-107); Glucose 120 mg/dL (74-106); Lipase 93 U/L (73-393); Potassium 3.5 mmol/L (3.5-5.1); Sodium 139 mmol/L (136-145); Total Protein 7.7 g/dL (6.4-8.2)
[2021-12-05] MEDS: Omnipaque 350 MG/ML 100 ML BTL IJ (08:18)
[2021-12-05 08:25] LABS: Bilirubin Small (Negative); Blood Negative (Negative); Clarity Sl Cloudy (Clear); Glucose Negative (Negative); Ketones 80 mg/dL (Negative); Leukocyte Esterase Small (Negative); Nitrite Negative (Negative); Specific Gravity >= 1.030 (1.005-1.025); pH 6.5 (5-8)
--- NOTE | 2021-12-05 08:38 | DI.VRAD_ITS ---
PROCEDURE INFORMATION: Exam: CT Abdomen And Pelvis With Contrast Exam date and time: 12/05/2021 8:23 AM Age: 60 years old Clinical indication: Other: Llq pain, diarrhea, suspect diverticulitis TECHNIQUE: Imaging protocol: Computed tomography of the abdomen and pelvis with contrast. Contrast material: OMNIPAQUE 350; Contrast volume: 85 ml; Contrast route: INTRAVENOUS (IV); COMPARISON: No relevant prior studies available. FINDINGS: Lungs: Visualized lung bases are clear. No pleural effusions. Liver: No acute abnormality. Incidental small focus of hypoattenuation in the right hepatic lobe (coronal image 36) measures less than 5 mm, too small to characterize. Gallbladder and bile ducts: Unremarkable. No calcified gallstones. No intrahepatic or extrahepatic biliary ductal dilation. Pancreas: Unremarkable. Spleen: Unremarkable. The spleen is normal in size. Adrenal glands: Unremarkable. Kidneys and ureters: Normal and symmetric renal enhancement. No hydronephrosis or hydroureter. Small hypoattenuating cortical foci in the lower poles of both kidneys measure less than 1 cm, too small to characterize. Stomach and bowel: The stomach is nondilated. The small and large bowel are normal in caliber. There is mural thickening in and inflammatory fat stranding about a short segment of proximal sigmoid colon which contains diverticula, findings most compatible with acute diverticulitis. There is an inflamed diverticulum along the mesenteric border of the proximal sigmoid colon with a few punctate foci of extraluminal gas in the sigmoid mesentery, compatible with microperforation (see coronal images 21-24). Appendix: A nondilated appendix is identified. Intraperitoneal space: Mild pelvic ascites. No organized fluid collection to suggest abscess. Retroperitoneal space: Unremarkable. No retroperitoneal collection or mass. Vasculature: Unremarkable. The abdominal aorta is normal in caliber. Lymph nodes: No pathologically enlarged lymph nodes. Urinary bladder: Unremarkable. Reproductive: Unremarkable as visualized. Bones/joints: Mild degenerative changes. No suspicious osseous lesions. Soft tissues: Unremarkable. IMPRESSION: 1. Acute diverticulitis in the proximal sigmoid colon with microperforation. 2. Mild pelvic ascites. No evidence of abscess. Dictated and Authenticated by: Noni Lovelace MD. Ordering:SONYA Wright MD
[2021-12-05 08:41] LABS: Bacteria Moderate HPF (Negative); C & S Indicated? No/Sq. Contamination; Crystals Negative HPF (Negative); Epithelial Cells Many HPF (Negative); Mucus Heavy (Negative); RBC 0-2 HPF (0-2)
[2021-12-05] MEDS: Ondansetron 4 MG/2 ML VIAL IVP (09:18)
[2021-12-05] MEDS: Ketorolac 15 MG/ML VIAL IVP ×2 (09:18→18:35)
--- NOTE | 2021-12-05 09:40 | ED.PROG_ITS ---
Date of service: 12/05/21 Time of Service: 09:40 Medical Decision Making Received signout from Dr. Whatley. Please see his note regarding details of initial presentation, exam and plan of care. Patient's labs returned with elevated white blood cell count. Her CT reveals sigmoid diverticulitis with microperforation. Case discussed with Dr. Kaur. Patient to be admitted for parenteral antibiotics and observation Sign Out Sign Out Data: Sign Out Comment: Left lower quadrant pain and diarrhea, follow-up on labs and imaging Last updated by Kyle Whatley DO at 12/05/21 07:28 Discharge Plan Disposition Patient Disposition: [facility] INPATIENT Condition: Good Discharge Details Clinical Impression: Sigmoid diverticulitis Primary Care Provider: Kaylin Walden ED Provider: Jonathon Cheng Home Meds and New Rx's Prescriptions: No Action amitriptyline 10 mg tablet 10 mg PO DAILY Shingrix gE Antigen Component 50 mcg suspension for reconstitution 0.5 ml IM ONCE Rx Instructions: as a single dose cholecalciferol (vitamin D3) 50 mcg (2,000 unit) capsule 50 mcg PO DAILY
[2021-12-05 09:45] LABS: Source Nasal/Nares
[2021-12-05] MEDS: CIPROFLOXACIN 400 MG/200 ML BAG 200 MG IVPB ×2 (10:42→21:21)
[2021-12-05] MEDS: Lactated Ringers 1,000 ML 75 ML IV (10:53)
[2021-12-05] MEDS: Enoxaparin 40 MG/0.4 ML SYR SC (10:53)
--- NOTE | 2021-12-05 10:59 | W.PREOPHP ---
Assessment and Plan Assessment and plan (1) Diverticulitis of large intestine with perforation: Status: Acute Assessment and plan: Siena is being admitted with sigmoid diverticulitis with perforation. There is no abscess noted on the CT scan. Discussed plan on Antibiotics. Discussed emergency surgery if the antibiotics do not work or her symptoms get worse. If emergency surgery is indicated she will most likely need a colostomy vs a loop ileostomy. Plan: IV fluids for hydration Diet- low fiber clear liquids activity- up and walking abx- cipro and flagyl IV. Will d/c on po cipro and flagyl once pain has resolved and she is eating and Leukocytosis has resolved. Check BMP and CBC in am Depending on when her last colonoscopy was she may benefit from one in 6-8 weeks History of Present Illness Consults Consult date: 12/05/21 Requesting physician: Jonathon Cheng Narrative: Mrs Delarosa is a pleasant 60 year old female who developed LLQ pain on Sunday. She has had some nausea associated with it as well as diarrhea. When the pain didn't subside she came to the ER. Work up in the ED revealed an elevated WBC count. CT scan which I reviewed showed diverticulitis with a microperforation. There is no abscess noted at this time. She has had colonoscopies in the past. No polyps just mild sigmoid diverticulosis. She is otherwise quite healthy. Radiologist interpretation: FINDINGS: Lungs: Visualized lung bases are clear. No pleural effusions. Liver: No acute abnormality. Incidental small focus of hypoattenuation in the right hepatic lobe (coronal image 36) measures less than 5 mm, too small to characterize. Gallbladder and bile ducts: Unremarkable. No calcified gallstones. No intrahepatic or extrahepatic biliary ductal dilation. Pancreas: Unremarkable. Spleen: Unremarkable. The spleen is normal in size. Adrenal glands: Unremarkable.? Kidneys and ureters: Normal and symmetric renal enhancement. No hydronephrosis or hydroureter. Small hypoattenuating cortical foci in the lower poles of both kidneys measure less than 1 cm, too small to characterize. Stomach and bowel: The stomach is nondilated. The small and large bowel are normal in caliber. There is mural thickening in and inflammatory fat stranding about a short segment of proximal sigmoid colon which contains diverticula, findings most compatible with acute diverticulitis. There is an inflamed diverticulum along the mesenteric border of the proximal sigmoid colon with a few punctate foci of extraluminal gas in the sigmoid mesentery, compatible with microperforation (see coronal images 21-24). Appendix: A nondilated appendix is identified. Intraperitoneal space: Mild pelvic ascites. No organized fluid collection to suggest abscess. Retroperitoneal space: Unremarkable. No retroperitoneal collection or mass. Vasculature: Unremarkable. The abdominal aorta is normal in caliber. Lymph nodes: No pathologically enlarged lymph nodes. Urinary bladder: Unremarkable. Reproductive: Unremarkable as visualized. Bones/joints: Mild degenerative changes. No suspicious osseous lesions. Soft tissues: Unremarkable. IMPRESSION: 1. Acute diverticulitis in the proximal sigmoid colon with microperforation. 2. Mild pelvic ascites. No evidence of abscess. Review of Systems Constitutional Constitutional: Reports fatigue, Denies fever(s), Denies headache(s), Reports poor appetite and Denies weight loss Eyes Eyes: Denies change in vision ENT Ears, Nose, Mouth, and Throat: Denies change in voice, Denies dysphagia and Denies headache(s) Cardiovascular Cardiovascular: Denies chest pain, Denies chest pain at rest, Denies chest pain with activity, Denies irregular heart rhythm, Denies palpitations, Denies dyspnea and Denies dyspnea on exertion Respiratory Respiratory: Denies cough, Denies dyspnea and Denies dyspnea on exertion Gastrointestinal Gastrointestinal: Denies dysphagia, Denies dyspepsia and Denies heartburn Genitourinary Genitourinary: Denies difficulty voiding Musculoskeletal Musculoskeletal: Reports system reviewed and no additional complaints, except as documented Integumentary/Breasts Skin/Breast: Reports system reviewed and no additional complaints, except as documented Neurologic Neurologic: Reports system reviewed and no additional complaints, except as documented and Denies headache(s) Psychiatric Psychiatric: Reports system reviewed and no additional complaints, except as documented Endocrine Endocrine: Reports system reviewed and no additional complaints, except as documented, Reports fatigue and Denies palpitations Hematologic/Lymphatic Hematologic/Lymphatic: Reports system reviewed and no additional complaints, except as documented PFSH All Active Problems (Updated 12/05/21 @ 11:12 by Kavitha Kaur MD) Diverticulitis of large intestine with perforation (Acute) Left shoulder pain (Acute) Paresthesias (Acute) Vision loss of right eye (Acute) Injury of right thumb (Acute) Skier's thumb vs bony contusion Medical History Anxiety Benign fasciculation-cramp syndrome History of IBS Labile hypertension Peripheral neuropathy Seborrheic keratosis Urinary incontinence Visual disturbance Surgical History H/O basal cell carcinoma excision Family History Father CAD (coronary artery disease) Hypertension Depression Cancer SMALL CELL LUNG CANCER Mother Hypertension Anxiety Breast cancer Brother Hypertension Depression Stroke HEMORRHAGIC STROKE AT AGE 51 Sister Hypertension Multiple polyps of sigmoid colon Sjogrens syndrome Sister Depression Paternal Aunt Diabetes Stroke Maternal Grandfather Stroke Maternal Grandmother Hypothyroidism Stroke Maternal Uncle Colon cancer Social History Smoking/Tobacco Use Status: Former Tobacco Use Smoking risk assessment performed?: Yes Alcohol Intake: current Alcohol Intake frequency: a few times a week Alcohol type: wine Details: 1 DRINK PER DAY Drug use: Current Sobriety Number of Children: 2 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 Current gender identity: female What is your relationship status?: Panel score (0-1 are the most socially isolated patients): 0 Do you feel safe at home: Yes Meds Allergies and Home Medications Allergies Allergy/AdvReac Type Severity Reaction Status Date / Time Penicillins Allergy Verified 12/05/21 07:28 Home Medications Medication Instructions Recorded Confirmed Type Unknown [No Known Home Meds] 12/05/21 12/05/21 History Exam Const General: cooperative, comfortable and no acute distress Orientation: alert and oriented x3 HENMT Head: normocephalic and atraumatic Eyes Pupils: PERRL Resp Effort & Inspection: normal respiratory effort Auscultation: clear to auscultation bilaterally Cardio Rate: regular rate Rhythm: regular rhythm GI Inspection: normal to inspection Palpation: soft, no hepatosplenomegaly and tender in the LLQ Auscultation: normal bowel sounds Results Imaging Abdomen CT scan report/results: report reviewed and image reviewed Labs Result diagrams: 12/05/21 07:31 12/05/21 07:31 Labs: Laboratory Results - last 24 hr 12/05/21 12/05/21 12/05/21 07:31 07:31 08:17 WBC 17.78 H RBC 4.27 Hgb 13.2 Hct 39.8 MCV 93 MCH 30.9 MCHC 33.2 RDW 13.6 Plt Count 282 MPV 9.1 Immature Gran % 0.4 Neutrophils % 84.1 Lymphocytes % 7.4 Monocytes % 7.8 Eosinophils % 0.1 Basophils % 0.2 Nucleated RBC % 0.0 Absolute Neutrophils 14.95 H Absolute Lymphocytes 1.32 Absolute Monocytes 1.39 H Absolute Eosinophils 0.02 Absolute Basophils 0.04 Sodium 139 Potassium 3.5 Chloride 102 Carbon Dioxide 30.6 Anion Gap 6.4 BUN 16 Creatinine 1.0 Est GFR (CKD-EPI 2020) 63.70 Glucose 120 H Calcium 9.2 Total Bilirubin 1.2 H AST 25 ALT 38 Alkaline Phosphatase 77 Total Protein 7.7 Albumin 3.7 Lipase 93 Urine Color Yellow Urine Clarity Sl Cloudy Urine pH 6.5 Ur Specific [place] >= 1.030 H Urine Protein 30 H Urine Ketones 80 H Urine Blood Negative Urine Nitrite Negative Urine Bilirubin Small H Urine Urobilinogen 2.0 H Ur Leukocyte Esterase Small H Urine RBC 0-2 Urine WBC 5-10 Ur Epithelial Cells Many Urine Crystals Negative Urine Bacteria Moderate Urine Mucus Heavy Urine Other Ur Culture Indicated? No/Sq. Contamination Urine Glucose Negative COVID-19 Source SARS-CoV-2 (PCR) 12/05/21 12/05/21 09:39 09:53 WBC RBC Hgb Hct MCV MCH MCHC RDW Plt Count MPV Immature Gran % Neutrophils % Lymphocytes % Monocytes % Eosinophils % Basophils % Nucleated RBC % Absolute Neutrophils Absolute Lymphocytes Absolute Monocytes Absolute Eosinophils Absolute Basophils Sodium Potassium Chloride Carbon Dioxide Anion Gap BUN Creatinine Est GFR (CKD-EPI 2020) Glucose Calcium Total Bilirubin AST ALT Alkaline Phosphatase Total Protein Albumin Lipase Urine Color Urine Clarity Urine pH Ur Specific [place] Urine Protein Urine Ketones Urine Blood Urine Nitrite Urine Bilirubin Urine Urobilinogen Ur Leukocyte Esterase Urine RBC Urine WBC Ur Epithelial Cells Urine Crystals Urine Bacteria Urine Mucus Urine Other Ur Culture Indicated? Urine Glucose COVID-19 Source Nasal/Nares Cancelled SARS-CoV-2 (PCR) Cancelled Last Vital Signs Temp 98.8 F 12/05/21 10:33 Pulse 71 12/05/21 10:33 Resp 18 12/05/21 10:33 BP 134/74 12/05/21 10:33 Pulse Ox 99 12/05/21 10:33
[2021-12-05] MEDS: metroNIDAZOLE 500 MG/100 ML BAG 100 MG IVPB ×2 (12:22→18:24)
[2021-12-05 12:34] LABS: COVID-19 PCR Negative (Negative)
[2021-12-05] MEDS: Calcium Carbonate *TUMS* 500 MG CHEW 1000 MG PO ×2 (17:25→18:24)
[2021-12-05] MEDS: Normal Saline Flush 10 ML SYR IVP ×2 (18:35→21:21)
[2021-12-06] MEDS: metroNIDAZOLE 500 MG/100 ML BAG 100 MG IVPB ×3 (01:40→17:53)
[2021-12-06] MEDS: Lactated Ringers 1,000 ML 75 ML IV ×2 (04:46→17:59)
[2021-12-06 05:13] VITALS: BP 121/68; PULSE 61; RESP 19; TEMP 35.9; O2SAT 100
[2021-12-06 06:29] LABS: Abs Immature Grans 0.03 10^3/uL (0.0-0.06); Absolute Basophil Count 0.02 10^3/uL (0.0-0.2); Absolute Eosinophil Count 0.05 10^3/uL (0.0-0.7); Absolute Lymphocyte Count 1.43 10^3/uL (1.2-3.4); Absolute Monocyte Count 0.66 10^3/uL (0.1-0.8); Absolute Neutrophil Count 6.66 10^3/uL (1.2-6.7); Basophils % 0.2; Eosinophils % 0.6; HCT 32.9 % (36.0-46.0); HGB 11.1 g/dL (11.2-15.7); Immature Grans % 0.3; Lymphocytes % 16.2; MCH 31.2 pg (27.0-33.0); MCHC 33.7 % (32.0-36.0); MCV 92 fL (80-95); MPV 9.4 fL (8.0-11.0); Monocytes % 7.5; Neutrophils % 75.2; Platelet Count 238 10^3/uL (130-400); RBC 3.56 10^6/uL (3.93-5.22); RDW 13.3 % (11.7-14.6); RDW-SD 45.6 fL; WBC 8.85 10^3/uL (4.4-10.8)
[2021-12-06 06:39] LABS: Anion Gap 7.2 mmol/L (3-11); BUN 11 mg/dL (7-18); CO2 29.8 mmol/L (21.0-32.0); CREATININE 0.8 mg/dL (0.55-1.02); Calcium 8.5 mg/dL (8.5-10.1); Chloride 105 mmol/L (98-107); Estimated GFR 83.26 (mL/min/1.73m2); Glucose 101 mg/dL (74-106); Potassium 3.6 mmol/L (3.5-5.1); Sodium 142 mmol/L (136-145)
[2021-12-06 08:15] VITALS: BP 121/71; PULSE 64; RESP 16; TEMP 37.1; O2SAT 99
--- NOTE | 2021-12-06 09:17 | INITIAL_ITS ---
- If Service Date Differs Date of service: 12/06/21 Time of Service: 09:17 Care Management Initial Assess REASON FOR HOSPITALIZATION:: Diverticulitis with perforation PAST MEDICAL HISTORY/PAST SURGICAL HISTORY:: All Active Problems (Updated 12/05/21 @ 11:12 by Kavitha Kaur MD). Diverticulitis of large intestine with perforation (Acute). Left shoulder pain (Acute). Paresthesias (Acute). Vision loss of right eye (Acute). Injury of right thumb (Acute). Skier's thumb vs bony contusion. Medical History . Anxiety. Benign fasciculation-cramp syndrome. History of IBS. Labile hypertension. Peripheral neuropathy. Seborrheic keratosis. Urinary incontinence. Visual disturbance. Surgical History . H/O basal cell carcinoma excision PREVIOUS FUNCTIONAL STATUS/SOCIAL/FAMILY SUPPORTS:: Siena lives alone in a single family home in [place], [place]. 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 siena has 2 adult children who live out of state. She stated that they get to see each other at least a couple of times a year. Siena is independent at baseline and receives no community services. CURRENT FUNCTIONAL STATUS:: Siena was sitting up in a chair when CM met with her. She was pleasant in interaction and agreeable to conversation. Siena informed CM that she is feeling much better already. Her pain is better controlled and she is tolerating a liquid diet. She is afebrile, her vital signs are stable and her WBC has normalized. ADVANCE DIRECTIVES:: none on file Has patient been provided with info about the portal/API?: Yes Did the patient sign up for the portal?: No CODE STATUS:: Full Code INSURANCE COVERAGE / FINANCIAL ISSUES:: [employer] ([employer]) CURRENT HOME/COMMUNITY SERVICES/EQUIPMENT:: none PRIMARY CARE PHYSICIAN:: Kaylin Walden POTENTIAL DISCHARGE NEEDS:: follow up with PCP and plan of care PATIENT/FAMILY EDUCATION NEEDS:: Review of discharge instructions, activity, limitations, follow up plan, Ask Me Three TRANSPORTATION:: via private vehicle with friends/family PLAN:: Siena will charlaley be discharged home with no new services when medicallty cleared by provider. She will follow up with her community providers and plan of care and transport with a friend. CM will offer support to Siena and assess for ongoing discharge needs.
[2021-12-06] MEDS: CIPROFLOXACIN 400 MG/200 ML BAG 200 MG IVPB ×2 (10:12→21:37)
[2021-12-06] MEDS: Normal Saline Flush 10 ML SYR IVP (10:13)
--- NOTE | 2021-12-06 12:29 | CHAPLAIN ---
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 She is very active, usually healthy, and rides her bike long distance often. She was just in a bike ride in [place] with two friends. She's frustrated about not feeling well, but said she feels better today than yesterday. She shared some person info telling me about her two children and what they're up to.
[2021-12-06 15:31] VITALS: BP 130/67; PULSE 63; RESP 15; TEMP 36.1; O2SAT 100
--- NOTE | 2021-12-06 17:04 | W.PM.PROGNOT ---
Date of Service Date of service: 12/06/21 Time of Service: 17:04 Assessment and Plan Assessment and plan (1) Diverticulitis of large intestine with perforation: Status: Acute Assessment and plan: -we d/w findings on CT abx: Cipro/flagyl cont. on liquid diet. add pro-biotic d/w hair importance of regular exercise/water intact and high fiber diet. Pt notes that she normally has diarrhea d/w her fdc sequalae of diverticula (2) History of IBS: Subjective Subjective Interval history since last seen: Pt is doing well. no headaches. No CP or SOB. no productive cough. no dysuria. no leg pain or swelling. She feeling significantly better. She is passing gas, but no BM Pain is 75% better. She is tolerating liquids. reviewed labs and findings on CT Pt notes that her younger brother has had problems w/ diverticulitis. Exam Resp Effort & Inspection: normal respiratory effort and able to speak in complete sentences Auscultation: clear to auscultation bilaterally Cardio Rate: regular rate Rhythm: regular rhythm GI Palpation: soft Other: minimal pain in LLQ good BS Extrem General: no clubbing, cyanosis or edema Objective Last Vital Signs Temp 36.1 C L 12/06/21 15:31 Pulse 63 12/06/21 15:31 Resp 15 12/06/21 15:31 BP 130/67 12/06/21 15:31 Pulse Ox 100 12/06/21 15:31 Laboratory Results - last 24 hr 12/06/21 12/06/21 06:05 06:05 WBC 8.85 RBC 3.56 L Hgb 11.1 L D Hct 32.9 L MCV 92 MCH 31.2 MCHC 33.7 RDW 13.3 Plt Count 238 MPV 9.4 Immature Gran % 0.3 Neutrophils % 75.2 Lymphocytes % 16.2 Monocytes % 7.5 Eosinophils % 0.6 Basophils % 0.2 Nucleated RBC % 0.0 Absolute Neutrophils 6.66 Absolute Lymphocytes 1.43 Absolute Monocytes 0.66 Absolute Eosinophils 0.05 Absolute Basophils 0.02 Sodium 142 Potassium 3.6 Chloride 105 Carbon Dioxide 29.8 Anion Gap 7.2 BUN 11 Creatinine 0.8 Est GFR (CKD-EPI 2020) 83.26 Glucose 101 Calcium 8.5 PAWSS Have you Been Recently Intoxicated or Drunk Within the Last 30 days?: No Have you Ever Experienced Previous Episodes of Alcohol Withdrawal?: No Have you ever Experienced Withdrawal Seizures?: No Have you ever Experienced Delirium Tremens(DT)s?: No Have you ever undergone Alcohol Rehabilitation Treatment (i.e, inpt ot outpatient treatment programs)?: No Have you ever Experienced Blackouts?: No Have you ever Combined Alcohol with other Downers within the last 90 days?: No Have you ever Combined Alcohol with any other Substance of Abuse during the last 90 days?: No Positive Blood Alcohol level on Presentation? [PCS.BAL]: No Evidence of Increased Autonomic Activity (i.e. HR>120, tremor, sweating, agitation, nausea)?: No Result: 0
[2021-12-06] MEDS: Enoxaparin 40 MG/0.4 ML SYR SC (18:00)
[2021-12-06 23:30] VITALS: BP 133/79; PULSE 66; RESP 16; TEMP 36.6; O2SAT 98
[2021-12-07] MEDS: metroNIDAZOLE 500 MG/100 ML BAG 100 MG IVPB ×3 (01:49→18:05)
[2021-12-07 06:23] LABS: Abs Immature Grans 0.01 10^3/uL (0.0-0.06); Absolute Basophil Count 0.03 10^3/uL (0.0-0.2); Absolute Eosinophil Count 0.05 10^3/uL (0.0-0.7); Absolute Lymphocyte Count 1.39 10^3/uL (1.2-3.4); Absolute Monocyte Count 0.61 10^3/uL (0.1-0.8); Absolute Neutrophil Count 4.05 10^3/uL (1.2-6.7); Basophils % 0.5; Eosinophils % 0.8; HCT 33.6 % (36.0-46.0); HGB 11.2 g/dL (11.2-15.7); Immature Grans % 0.2; Lymphocytes % 22.6; MCH 30.9 pg (27.0-33.0); MCHC 33.3 % (32.0-36.0); MCV 93 fL (80-95); MPV 9.3 fL (8.0-11.0); Monocytes % 9.9; Platelet Count 252 10^3/uL (130-400); RBC 3.62 10^6/uL (3.93-5.22); RDW 13.2 % (11.7-14.6); RDW-SD 44.7 fL; WBC 6.14 10^3/uL (4.4-10.8)
[2021-12-07 06:31] LABS: Anion Gap 5.8 mmol/L (3-11); BUN 9 mg/dL (7-18); CO2 29.2 mmol/L (21.0-32.0); CREATININE 0.8 mg/dL (0.55-1.02); Calcium 8.7 mg/dL (8.5-10.1); Chloride 107 mmol/L (98-107); Estimated GFR 83.26 (mL/min/1.73m2); Glucose 111 mg/dL (74-106); Potassium 3.4 mmol/L (3.5-5.1); Sodium 142 mmol/L (136-145)
[2021-12-07 07:33] VITALS: BP 130/80; PULSE 63; RESP 12; TEMP 34.9; O2SAT 99
--- NOTE | 2021-12-07 09:33 | PDOC.CMPRO ---
- If Service Date Differs Date of service: 12/07/21 Time of Service: 09:33 Care Management Progress Note S/O:Siena was ambulating in her room when CM met with her. She was smiling and informed CM that she continues to feel better. Her diet was advanced today and, if tolerated well, she will likely be able to discharge home tomorrow, per provider. A: Siena is a 60 year old woman admitted on 12/05/21 with diverticulitis P Siena will likely be discharged home with no new services when medically cleared by provider. She will follow up with her community providers and plan of care and transport with a friend. CM will offer support to Siena and assess for ongoing discharge needs.
[2021-12-07] MEDS: CIPROFLOXACIN 400 MG/200 ML BAG 200 MG IVPB ×2 (10:04→21:49)
--- NOTE | 2021-12-07 12:04 | W.PM.PROGNOT ---
Date of Service Date of service: 12/07/21 Time of Service: 12:05 Assessment and Plan Assessment and plan (1) Diverticulitis of large intestine with perforation: Status: Acute Assessment and plan: He has had a favorable response to the antibiotics, with all advance her diet today to a fiber restricted diet. We can reassess tomorrow. As long as she feels okay, her vital signs remain reassuring, and her white blood cell count is normal, I think we can discharge tomorrow. Subjective Subjective Interval history since last seen: She feels much better with near resolution of her pain. She is tolerating the clear liquids without issue. Exam GI Inspection: distended Palpation: soft, no hernias and nontender Percussion: tympanic to percussion Auscultation: normal bowel sounds Objective Last Vital Signs Temp 94.8 F L 12/07/21 07:33 Pulse 63 12/07/21 07:33 Resp 12 12/07/21 07:33 BP 130/80 12/07/21 07:33 Pulse Ox 99 12/07/21 07:33 Laboratory Results - last 24 hr 12/07/21 12/07/21 06:10 06:10 WBC 6.14 RBC 3.62 L Hgb 11.2 Hct 33.6 L MCV 93 MCH 30.9 MCHC 33.3 RDW 13.2 Plt Count 252 MPV 9.3 Immature Gran % 0.2 Neutrophils % 66.0 Lymphocytes % 22.6 Monocytes % 9.9 Eosinophils % 0.8 Basophils % 0.5 Nucleated RBC % 0.0 Absolute Neutrophils 4.05 Absolute Lymphocytes 1.39 Absolute Monocytes 0.61 Absolute Eosinophils 0.05 Absolute Basophils 0.03 Sodium 142 Potassium 3.4 L Chloride 107 Carbon Dioxide 29.2 Anion Gap 5.8 BUN 9 Creatinine 0.8 Est GFR (CKD-EPI 2020) 83.26 Glucose 111 H Calcium 8.7 PAWSS Have you Been Recently Intoxicated or Drunk Within the Last 30 days?: No Have you Ever Experienced Previous Episodes of Alcohol Withdrawal?: No Have you ever Experienced Withdrawal Seizures?: No Have you ever Experienced Delirium Tremens(DT)s?: No Have you ever undergone Alcohol Rehabilitation Treatment (i.e, inpt ot outpatient treatment programs)?: No Have you ever Experienced Blackouts?: No Have you ever Combined Alcohol with other Downers within the last 90 days?: No Have you ever Combined Alcohol with any other Substance of Abuse during the last 90 days?: No Positive Blood Alcohol level on Presentation? [PCS.BAL]: No Evidence of Increased Autonomic Activity (i.e. HR>120, tremor, sweating, agitation, nausea)?: No Result: 0
--- NOTE | 2021-12-07 12:49 | PHA.REVIEW ---
Pharmacy Admission Review - Admission Clinical Review (Last Updated 12/06/21 @ 19:32 by Nita Kamara DO) Diverticulitis of large intestine with perforation (Acute) Penicillins Allergy (Verified 12/05/21 07:28) Resuscitation Status Full Code Height 5 ft 6 in Weight 58.967 kg - Renal Dosing Renal Dosing: BUN 9 mg/dL (7-18) 12/07/21 06:10 Creatinine 0.8 mg/dL (0.55-1.02) 12/07/21 06:10 Medications needing adjustments: Reviewed (Crcl ~54.3 mL/min current meds okay) - Anticoagulation Anticoagulation: Hgb 11.2 g/dL (11.2-15.7) 12/07/21 06:10 Hct 33.6 % (36.0-46.0) L 12/07/21 06:10 Plt Count 252 10^3/uL (130-400) 12/07/21 06:10 Creatinine 0.8 mg/dL (0.55-1.02) 12/07/21 06:10 DVT Prophylaxis: Reviewed Medications: Enoxaparin Therapeutic Anticoagulation: N/A - Opiate Usage Evaluate Pain Scale/Pains Meds: Reviewed Scheduled Bowel Reg ordered if on Opiates?: No (has not used any opioids) - Relevant Labs Sodium 142 mmol/L (136-145) 12/07/21 06:10 Potassium 3.4 mmol/L (3.5-5.1) L 12/07/21 06:10 Chloride 107 mmol/L (98-107) 12/07/21 06:10 Electrolytes, C-Reactive P, ESR: Intervened (K+ a little low, will mention to provider) - DM Control DM Control: Glucose 111 mg/dL (74-106) H 12/07/21 06:10 Insulin Dosing: N/A - Heart Failure/IA EF%, KRIS's, B-Blockers, Diuretics: N/A - BP Control BP Control: Blood Pressure 130/80 If elevated: Reviewed (BP was a little elevated on admission, but has been within normal limits yesterday and so far today.) - Qtc Review If Elevated: N/A - IV to PO Switch IV Medications: Reviewed - Home Meds Home Med List reviewed: Reviewed (no known home meds) - Current meds Current Medication Order Review: Intervened (Discontinued DI meds that had already been given.) - Comments Comments/Follow Ups: Watch VS, K+, labs and for med changes (possible renal dose adjustments). Antibiotic Activity - Pharmacy Antibiotic Review Pharmacy Antibiotic Activity: Reviewed, no change (Cipro and metronidazole continue (day 3).)
[2021-12-07] MEDS: Lactated Ringers 1,000 ML 75 ML IV (14:27)
[2021-12-07 14:30] VITALS: BP 127/75; PULSE 58; RESP 12; TEMP 36.5; O2SAT 98
--- NOTE | 2021-12-07 14:31 | NUR.NOTE ---
Pt reports she has felt a sensation of air passage through her urethra today, and that she informed Dr Edward of this. Pt denies passing any rectal flatus and still has had no bowel movement since admission to the hospital. Pt continues to deny nausea, denies abdominal pain. Pt ate 1/2 of her turkey, mashed potatoes and squash today and tolerated this meal well.
[2021-12-07 16:28] VITALS: BP 127/74; PULSE 58; RESP 16; TEMP 37.1; O2SAT 95
--- NOTE | 2021-12-07 17:43 | CHAPLAIN ---
Siena's said she's feeling better and eating real food. She's had some visitors today, and hopes to be discharged tomorrow.
[2021-12-07] MEDS: Enoxaparin 40 MG/0.4 ML SYR SC (18:05)
[2021-12-07 22:58] VITALS: BP 133/73; PULSE 64; RESP 18; TEMP 36.3; O2SAT 98
[2021-12-08] MEDS: metroNIDAZOLE 500 MG/100 ML BAG 100 MG IVPB ×2 (02:03→11:48)
[2021-12-08] MEDS: Lactated Ringers 1,000 ML 75 ML IV ×2 (02:03→09:33)
--- NOTE | 2021-12-08 06:05 | DSE_ITS ---
Date of service: 12/08/21 Time of Service: 14:00 DS: Diagnosis Discharge Diagnosis (1) Diverticulitis of large intestine with perforation: Status: Acute Asessment and Plan: Continue antibiotics through 12/20 Discharge Plan Disposition Patient Disposition: HOME Condition: Good Discharge Details Reason For Visit: Diverticulitis with Microperforation Admit Date/Time: 12/05/21 09:27 Admit Provider: Kavitha Kaur Attending Provider: Kavitha Kaur Primary Care Provider: Kaylin Walden Hospital Course Hospital Course: Siena is a 60-year-old woman with acute onset of lower abdominal pain. She underwent a CAT scan of the abdomen and pelvis that demonstrated acute diverticulitis. She was started on ciprofloxacin as well as Flagyl, and her diet was modified to clear liquids. She had an initial leukocytosis that improved within the first 24 hours. Similarly, her symptoms quickly resolved. She was afebrile with normal vital signs by the morning of December 08, and her white blood cell count remained within normal limits as her diet was advanced. Home Meds and New Rx's Prescriptions: New ciprofloxacin HCl [Cipro] 500 mg tablet 500 mg PO BID Qty: 26 0RF metronidazole 500 mg tablet 500 mg PO TID Qty: 39 0RF fluconazole [Diflucan] 150 mg tablet 150 mg PO Q3D 9 Days Qty: 3 3RF Discharge Instructions Instructions: Diverticulitis Diet (DC) Stand Alone Forms: Nursing Discharge Form Referrals: Kavitha Kaur MD [ [facility] STAFF PHYSICIAN] - 12/23/21 10:30 am Activity:: Activity as Tolerated Equipment/Supplies:: Blood Glucose Monitor Diet:: Diverticulitis diet Discharge Orders Discharge Orders: Discharge Order (Routine); Ordered 12/08/21 Ordered By: Simone Edward Discharge Data Discharge Date/Time-TO BE ENTERED AT DEPARTURE: 12/08/21 15:02 DS: Summary Time Spent with Patient providing and/or coordinating discharge services: Greater than 30 minutes Status at Discharge Functional status at discharge: independent ambulation Overall status at discharge: patient is back to baseline Mental Status: mental status grossly normal Speech and Movement: speech and movement normal Mood: congruent mood Affect: normal affect Exam Const General: cooperative, healthy appearing and comfortable Orientation: awake and oriented x3 Eyes General: appearance normal, both eyes and all related structures Conjunctivae: conjunctivae normal Sclera: sclerae normal Resp Effort & Inspection: normal respiratory effort and able to speak in complete sentences Cardio Jugular venous pressure: no JVD Rate: regular rate GI Inspection: distended (Mild abdominal distention) Palpation: soft, no guarding, no hernias and tender (Mild bilateral lower roge drant) Percussion: tympanic to percussion Auscultation: normal bowel sounds Skin General skin exam: normal turgor Neuro General: patient alert, patient awake and patient oriented x3 Cognition: normal cognition Extrem Right lower extremity: no edema Left lower extremity: no edema Psych Mental Status: mental status grossly normal Speech and Movement: speech and movement normal Mood: congruent mood Affect: normal affect DS: Data Vitals/I&O Vitals and I&O: Vital Signs Temperature 97.3 F L 12/07/21 22:58 Temperature Source Tympanic 12/07/21 22:58 Pulse 64 12/07/21 22:58 Pulse Rhythm Regular 12/08/21 04:02 Respiratory Rate 18 12/07/21 22:58 Respiratory Effort Non-Labored 12/08/21 04:02 Respiratory Depth Normal 12/08/21 04:02 Respiratory Pattern Normal 12/08/21 04:02 Blood Pressure 133/73 12/07/21 22:58 Blood Pressure Position Sitting 12/05/21 07:16 Pulse Oximetry 98 12/07/21 22:58 Oxygen Delivery Method Room Air 12/07/21 22:58 Oxygen Flow Rate 0 12/07/21 22:58 Pain Level 0 12/07/21 16:28 Intake & Output 12/07/21 12/07/21 12/08/21 11:59 23:59 11:59 Intake Total 510 / 2009 1500 / 2009 1110 / 1110 Output Total 2350 / 3950 1600 / 3950 800 / 800 Balance -1840 / -1940 -100 / -1940 310 / 310 Intake: IV 310 / 1510 1200 / 1510 870 / 870 Oral 200 / 500 300 / 500 240 / 240 Output: Urine 2350 / 3950 1600 / 3950 800 / 800 Other: Urine Color Straw Light Melanie Yellow Urine Appearance Clear Clear Clear Urine Odor None None Voiding Methods Toilet Toilet Toilet Data Completed and Pending Labs on day of discharge: Labs from last 24 hours 12/08/21 12/08/21 12/08/21 06:00 05:35 05:35 WBC Pending RBC Pending Hgb Pending Hct Pending MCV Pending MCH Pending MCHC Pending RDW Pending Plt Count Pending MPV Pending Immature Gran % Pending Neutrophils % Pending Lymphocytes % Pending Monocytes % Pending Eosinophils % Pending Basophils % Pending Nucleated RBC % Absolute Neutrophils Pending Absolute Lymphocytes Pending Absolute Monocytes Pending Absolute Eosinophils Pending Absolute Basophils Pending Sodium Pending Pending Potassium Pending Pending Chloride Pending Pending Carbon Dioxide Pending Pending Anion Gap Pending Pending BUN Pending Pending Creatinine Pending Pending Est GFR (CKD-EPI 2020) Pending Pending Glucose Pending Pending Calcium Pending Pending Total Bilirubin Pending AST Pending ALT Pending Alkaline Phosphatase Pending Total Protein Pending Albumin Pending 12/07/21 12/07/21 06:10 06:10 WBC 6.14 RBC 3.62 L Hgb 11.2 Hct 33.6 L MCV 93 MCH 30.9 MCHC 33.3 RDW 13.2 Plt Count 252 MPV 9.3 Immature Gran % 0.2 Neutrophils % 66.0 Lymphocytes % 22.6 Monocytes % 9.9 Eosinophils % 0.8 Basophils % 0.5 Nucleated RBC % 0.0 Absolute Neutrophils 4.05 Absolute Lymphocytes 1.39 Absolute Monocytes 0.61 Absolute Eosinophils 0.05 Absolute Basophils 0.03 Sodium 142 Potassium 3.4 L Chloride 107 Carbon Dioxide 29.2 Anion Gap 5.8 BUN 9 Creatinine 0.8 Est GFR (CKD-EPI 2020) 83.26 Glucose 111 H Calcium 8.7 Total Bilirubin AST ALT Alkaline Phosphatase Total Protein Albumin PFSH All Active Problems Diverticulitis of large intestine with perforation (Acute) Left shoulder pain (Acute) Paresthesias (Acute) Vision loss of right eye (Acute) Injury of right thumb (Acute) Skier's thumb vs bony contusion Medical History Anxiety 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 Labile hypertension Peripheral neuropathy Seborrheic keratosis Urinary incontinence Visual disturbance Surgical History H/O basal cell carcinoma excision Family History Father CAD (coronary artery disease) Hypertension Depression Cancer SMALL CELL LUNG CANCER Mother Hypertension Anxiety Breast cancer Brother Hypertension Depression Stroke HEMORRHAGIC STROKE AT AGE 51 Sister Hypertension Multiple polyps of sigmoid colon Sjogrens syndrome Sister Depression Paternal Aunt Diabetes Stroke Maternal Grandfather Stroke Maternal Grandmother Hypothyroidism Stroke Maternal Uncle Colon cancer Social History Smoking/Tobacco Use Status: Former Tobacco Use Smoking risk assessment performed?: Yes Alcohol Intake: current Alcohol Intake frequency: a few times a week Alcohol type: wine Details: 1 DRINK PER DAY Drug use: Current Sobriety Number of Children: 2 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
[2021-12-08 06:43] LABS: Abs Immature Grans 0.03 10^3/uL (0.0-0.06); Absolute Basophil Count 0.03 10^3/uL (0.0-0.2); Absolute Eosinophil Count 0.05 10^3/uL (0.0-0.7); Absolute Lymphocyte Count 1.58 10^3/uL (1.2-3.4); Absolute Monocyte Count 0.63 10^3/uL (0.1-0.8); Absolute Neutrophil Count 4.45 10^3/uL (1.2-6.7); Basophils % 0.4; Eosinophils % 0.7; HCT 33.9 % (36.0-46.0); HGB 11.2 g/dL (11.2-15.7); Immature Grans % 0.4; Lymphocytes % 23.3; MCH 30.5 pg (27.0-33.0); MCV 92 fL (80-95); MPV 9.2 fL (8.0-11.0); Monocytes % 9.3; Neutrophils % 65.9; Platelet Count 276 10^3/uL (130-400); RBC 3.67 10^6/uL (3.93-5.22); RDW-SD 44.5 fL; WBC 6.77 10^3/uL (4.4-10.8)
[2021-12-08 07:00] LABS: ALT 27 U/L (14-59); AST 20 U/L (15-37); Albumin 2.9 g/dL (3.4-5.0); Alkaline Phosphatase 71 U/L (46-116); Anion Gap 8.4 mmol/L (3-11); BUN 11 mg/dL (7-18); Bilirubin, Total 0.4 mg/dL (0.2-1.0); CO2 27.6 mmol/L (21.0-32.0); CREATININE 0.8 mg/dL (0.55-1.02); Calcium 8.5 mg/dL (8.5-10.1); Chloride 105 mmol/L (98-107); Estimated GFR 83.26 (mL/min/1.73m2); Glucose 107 mg/dL (74-106); Potassium 3.2 mmol/L (3.5-5.1); Sodium 141 mmol/L (136-145); Total Protein 6.5 g/dL (6.4-8.2)
[2021-12-08 07:52] VITALS: BP 127/76; PULSE 67; RESP 16; TEMP 36.5; O2SAT 100
--- NOTE | 2021-12-08 09:15 | PDOC.CMDIS ---
- If Service Date Differs Date of service: 12/08/21 Time of Service: 09:15 LACE Index Scoring Tool - Questions: Length of Stay (in days): 3 Acuity (Admit via E.D.?): No Comorbidities: Any Tumor E.D. Visits: 0 - Answers: Total Score: 5 Risk of Readmission: Low Risk Care Management Discharge Reason for Hospitalization: Diverticulitis with perforation Discharge Plan: Siena is discharged home via private vehicle with family. She will continue PO ABX through 12/20/21. Siena will follow up with the Surgical office 12/23/21 as scheduled. No [facility] services are indicated. Patient/Family Education Needs: Review discharge instructions, limitations, medications and plan to follow up with community providers. ask me three.
[2021-12-08] MEDS: CIPROFLOXACIN 400 MG/200 ML BAG 200 MG IVPB (09:33)
[2021-12-08 10:04] VITALS: RESP 18; O2SAT 95
[2021-12-08 23:30] LABS: Campylobacter PCR Negative (Negative); Salmonella PCR Negative (Negative); Shiga Toxin PCR Negative (Negative); Shigella/Enteroinvasive Ecoli Negative (Negative)
== END 2021-12-08 15:02 | disposition home or self-care (01) | DRG 392 ==
LOC: ER 09:48 → MS 10:31
PROVIDERS: Student in an Organized Health Care Education/Training Program; Surgery; Admitting Provider Surgery; Emergency Provider Emergency Medicine; PCP Nurse Practitioner Adult Health; Visit Provider Surgery
DX: K57.20 Diverticulitis of large intestine with perforation and abscess without bleeding (principal); F41.9 Anxiety disorder, unspecified; G62.9 Polyneuropathy, unspecified; R32 Unspecified urinary incontinence; L82.1 Other seborrheic keratosis; Z87.891 Personal history of nicotine dependence; K58.9 Irritable bowel syndrome, unspecified
CPT/HCPCS: 36415; 80048; 80053; 83690; 87329; 87505; 87635; 96361; 96374; 96375; 99285; J1650; 74177; 81003; 81015; 85025; 87177; J0744; J1885; J2405; J3490

== ENCOUNTER 2021-12-30 11:12 | Day surgery (SDC) | payer OTHER, SELFPAY ==
--- NOTE | 2021-12-30 11:21 | ED.GENADUL_ITS ---
Discharge Plan Disposition Patient Disposition: [facility]ERY [facility] Condition: Stable Discharge Details Chief Complaint: GenMedical Clinical Impression: Thrombosed hemorrhoids Primary Care Provider: Kaylin Walden ED Provider: Ruiz Jimenez Home Meds and New Rx's Prescriptions: No Action amitriptyline 10 mg tablet 10 mg PO QHS tramadol 50 mg tablet 50 mg PO Q4H PRN PRN (Reason: pain (scale score 7-10)) Qty: 7 0RF dibucaine 1 % ointment 1 applic [place] QID PRN (Reason: hemorrhoids) Qty: 56 6RF ibuprofen 200 mg Capsule 600 mg PO PRN PRN acetaminophen 500 mg Tablet 1,000 mg PO PRN PRN Medical Decision Making This is a 61-year-old female presenting to the ER for concern of thrombosed hemorrhoids. Dr. Kamara, surgery, is aware and will personally evaluate the patient in the ER. Clinically the patient appears well, nontoxic, hemodynamically stable. Rectal examination was deferred as she will be evaluated by surgery. Dr. Kamara personally evaluated the patient in room 9, confirms thrombosed hemorrhoid, and will take to day surgery for definitive care This documentation was generated using Wazeation system, please disregard any oddities of phrase or misspellings. Medical Records Medical records reviewed: Yes I reviewed the patient's medical records. HPI General Mode of arrival: ambulatory . Date/Time Provider Initiated Documentation: 12/30/21 11:21 . Limitations to Documentation: no limitations . Information obtained by: patient . HPI Narrative: This is a 61-year-old female who presents to the ER for evaluation at the request of surgery for potential thrombosed hemorrhoid. She was actually seen by surgery yesterday and day surgery for treatment of a thrombosed hemorrhoid presents today for concern of reoccurrence. Reports moderate pain. Denies any fever or abdominal pain. Related Data Home Medications Medication Instructions Recorded Confirmed amitriptyline 10 mg tablet 10 mg PO QHS 12/29/21 12/30/21 dibucaine 1 % rectal ointment 1 applic [place] QID PRN hemorrhoids 12/29/21 12/30/21 #56 grams tramadol 50 mg tablet 50 mg PO Q4H PRN PRN pain (scale 12/29/21 12/30/21 score 7-10) #7 tabs acetaminophen 500 mg tablet 1,000 mg PO PRN PRN 12/30/21 12/30/21 ibuprofen 200 mg capsule 600 mg PO PRN PRN 12/30/21 12/30/21 Previous Rx's Medication Instructions Recorded dibucaine 1 % rectal ointment 1 applic [place] QID PRN hemorrhoids 12/29/21 #56 grams tramadol 50 mg tablet 50 mg PO Q4H PRN PRN pain (scale 12/29/21 score 7-10) #7 tabs Allergies Allergy/AdvReac Type Severity Reaction Status Date / Time Penicillins Allergy Verified 12/30/21 11:25 General JEFF: 3 Review of Systems Constitutional Constitutional: Denies fever(s) Gastrointestinal Gastrointestinal: Denies abdominal pain PFSH All Active Problems (Updated 12/30/21 @ 12:01 by DILCIA LOPEZ) Thrombosed hemorrhoids (Acute) Thrombosed hemorrhoids (Acute) Diverticulitis of large intestine with perforation (Acute) Left shoulder pain (Acute) Paresthesias (Acute) Vision loss of right eye (Acute) Injury of right thumb (Acute) Skier's thumb vs bony contusion Medical History Anxiety 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 Labile hypertension Peripheral neuropathy Seborrheic keratosis Urinary incontinence Visual disturbance Surgical History H/O basal cell carcinoma excision Family History Father CAD (coronary artery disease) Hypertension Depression Cancer SMALL CELL LUNG CANCER Mother Hypertension Anxiety Breast cancer Brother Hypertension Depression Stroke HEMORRHAGIC STROKE AT AGE 51 Sister Hypertension Multiple polyps of sigmoid colon Sjogrens syndrome Sister Depression Paternal Aunt Diabetes Stroke Maternal Grandfather Stroke Maternal Grandmother Hypothyroidism Stroke Maternal Uncle Colon cancer Social History Smoking/Tobacco Use Status: Former Tobacco Use Smoking risk assessment performed?: Yes Alcohol Intake: current Alcohol Intake frequency: a few times a week Alcohol type: wine Details: 1 DRINK PER DAY Drug use: Never Substance use type: does not use Number of Children: 2 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 gender identity: female What is your relationship status?: Panel score (0-1 are the most socially isolated patients): 0 Do you feel safe at home: Yes Do you feel safe in your relationship?: Yes Exam Const General: cooperative, healthy appearing, comfortable and no acute distress Orientation: alert and awake [facility] Head: normal to inspection, normocephalic and atraumatic Eyes Conjunctivae: conjunctivae normal Neck Neck: normal visual inspection, trachea midline and supple Resp Effort & Inspection: normal respiratory effort and able to speak in complete sentences GI Other: Rectal examination deferred as surgery will be coming to evaluate the patient Skin General skin exam: no rashes or lesions noted Neuro General: patient alert, patient awake, moves all extremities and no focal motor deficits Sensory Exam: no sensory deficits noted Psych Appearance: grossly normal Mental Status: mental status grossly normal
[2021-12-30 11:23] VITALS: BP 148/89; PULSE 73; RESP 18; TEMP 36.8; O2SAT 100
[2021-12-30 11:36] VITALS: RESP 18
--- NOTE | 2021-12-30 11:56 | W.SURGCON ---
Date of service: 12/30/21 Time of Service: 12:54 Assessment and Plan Assessment and plan (1) Thrombosed hemorrhoids: Status: Acute Assessment and plan: Patient will be brought back to the operating room for excision of thrombosed hemorrhoids. Risks include but are not limited to: Bleeding, infection, pneumonia, complications of anesthesia, damage to the sphincters which could result in loss of function or control and or stenosis, recurrence of hemorrhoids, chronic pain or numbness History of Present Illness Narrative: Patient did well following the procedure yesterday. She had breakfast and coffee this morning and then went to the toilet. Following that she started having severe pain in the rectum and came to the ER today on examination today she has another thrombosed hemorrhoid. Patient would prefer to do the procedure and surgery with anesthesia rather than just doing it under local and she will be brought to the OR for the procedure. Risks include bleeding, infection, damage to the sphincters resulting in incontinence or stricture, recurrence, and complications of anesthesia. 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 Labile hypertension Peripheral neuropathy Seborrheic keratosis Urinary incontinence Visual disturbance Surgical History H/O basal cell carcinoma excision Family History Father CAD (coronary artery disease) Hypertension Depression Cancer SMALL CELL LUNG CANCER Mother Hypertension Anxiety Breast cancer Brother Hypertension Depression Stroke HEMORRHAGIC STROKE AT AGE 51 Sister Hypertension Multiple polyps of sigmoid colon Sjogrens syndrome Sister Depression Paternal Aunt Diabetes Stroke Maternal Grandfather Stroke Maternal Grandmother Hypothyroidism Stroke Maternal Uncle Colon cancer Social History Smoking/Tobacco Use Status: Former Tobacco Use Smoking risk assessment performed?: Yes Alcohol Intake: current Alcohol Intake frequency: a few times a month Alcohol type: wine Details: 1 DRINK PER DAY Drug use: Never Substance use type: does not use Number of Children: 2 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 gender identity: female What is your relationship status?: Panel score (0-1 are the most socially isolated patients): 0 Do you feel safe at home: Yes Do you feel safe in your relationship?: Yes Exam HENMT Other: Good range of motion in her neck She wears glasses no jaundice Dentition in good repair Cardio Jugular venous pressure: no JVD Rate: regular rate Rhythm: regular rhythm GI Palpation: soft Auscultation: normal bowel sounds Rectal Exam - female: hemorrhoids (thrombosed x1) Extrem General: no clubbing, cyanosis or edema Results Last Vital Signs Temp 36.8 C 12/30/21 11:23 Pulse 73 12/30/21 11:23 Resp 18 12/30/21 11:36 BP 148/89 H 12/30/21 11:23 Pulse Ox 100 12/30/21 11:23
[2021-12-30 12:11] VITALS: BP 155/83; PULSE 73; RESP 20; TEMP 36.8; O2SAT 100
--- NOTE | 2021-12-30 12:29 | ANES.PREOP_ITS ---
General Info Date of Service Date Performed: 12/30/21 Height: 5 ft 5.5 in Weight: 57.153 kg Body Mass Index (BMI): 20.6 Surgical Procedure: Operation Date: 12/30/21 14:10 Proposed Procedure Side Surgeon p I&D of Thrombosed Hemorrhoid Nita Kamara, DO Meds Allergies and Home Medications Allergies Allergy/AdvReac Type Severity Reaction Status Date / Time Penicillins Allergy Verified 12/30/21 12:21 Home Medication Medication Instructions Recorded amitriptyline 10 mg tablet 10 mg PO QHS 12/29/21 dibucaine 1 % rectal ointment 1 applic [place] QID PRN hemorrhoids 12/29/21 #56 grams tramadol 50 mg tablet 50 mg PO Q4H PRN PRN pain (scale 12/29/21 score 7-10) #7 tabs acetaminophen 500 mg tablet 1,000 mg PO PRN PRN 12/30/21 ibuprofen 200 mg capsule 600 mg PO PRN PRN 12/30/21 Current Visit Medications: Current Medications Generic Name Dose Route Start Last Admin Trade Name Freq PRN Reason Stop Dose Admin Ringer's Solution 1,000 mls @ 100 mls/hr 12/30/21 12:00 IV INFUSION PRABHA Lidocaine/Prilocaine 5 gm 12/30/21 12:00 Lidocaine/Prilocaine Cream 5 Gm Tube TP DIRECTED PRABHA Lidocaine/Prilocaine 5 gm 12/30/21 13:00 Lidocaine/Prilocaine Cream 5 Gm Tube TP DIRECTED PRABHA Morphine Sulfate 2 mg 12/30/21 12:00 Morphine 10 Mg/Ml Vial IVP DIRECTED PRN Ondansetron HCl 4 mg 12/30/21 12:07 Ondansetron 4 Mg/2 Ml Vial IVP Q4H PRN PRN PFSH Active Problems Active Problems: Problem Status Onset Code Thrombosed hemorrhoids K64.5 Thrombosed hemorrhoids K64.5 Diverticulitis of large intestine with perforation K57.20 Left shoulder pain M25.512 Paresthesias R20.2 Vision loss of right eye H54.61 Injury of right thumb S69.91XA Medical History Medical History Anxiety 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 Labile hypertension Peripheral neuropathy Seborrheic keratosis Urinary incontinence Visual disturbance Surgical History Surgical History H/O basal cell carcinoma excision Tobacco Smoking/Tobacco Use Status: Former Tobacco Use Alcohol Alcohol Intake: current Alcohol intake frequency: a few times a month Alcohol type: wine Details: 1 DRINK PER DAY Substance Use Substance use: Never Substance use type: does not use Vital Signs and Lab Results Vital Signs Most Recent Vital Signs in EMR: Most Recent Vital Signs Temp Pulse Resp BP Pulse Ox 36.8 C 73 20 155/83 H 100 12/30/21 12:11 12/30/21 12:11 12/30/21 12:11 12/30/21 12:11 12/30/21 12:11 Lab Results Blood Type / Crossmatch: No Data to Display Complete Blood Count: White Blood Count 6.77 10^3/uL (4.4-10.8) 12/08/21 06:30 Red Blood Count 3.67 10^6/uL (3.93-5.22) L 12/08/21 06:30 Hemoglobin 11.2 g/dL (11.2-15.7) 12/08/21 06:30 Hematocrit 33.9 % (36.0-46.0) L 12/08/21 06:30 Platelet Count 276 10^3/uL (130-400) 12/08/21 06:30 Complete Metabolic Panel: Sodium Level 141 mmol/L (136-145) 12/08/21 06:30 Potassium Level 3.2 mmol/L (3.5-5.1) L 12/08/21 06:30 Chloride Level 105 mmol/L (98-107) 12/08/21 06:30 Carbon Dioxide Level 27.6 mmol/L (21.0-32.0) 12/08/21 06:30 Blood Urea Nitrogen 11 mg/dL (7-18) 12/08/21 06:30 Creatinine 0.8 mg/dL (0.55-1.02) 12/08/21 06:30 Calcium Level 8.5 mg/dL (8.5-10.1) 12/08/21 06:30 Albumin 2.9 g/dL (3.4-5.0) L 12/08/21 06:30 Glucose Level 107 mg/dL (74-106) H 12/08/21 06:30 Liver Function Panel: Alanine Aminotransferase (ALT/SGPT) 27 U/L (14-59) 12/08/21 06: 30 Aspartate Amino Transf (AST/SGOT) 20 U/L (15-37) 12/08/21 06:30 Coagulation Panel: No Data to Display Cardiac Panel: No Data to Display Arterial Blood Gas: No Data to Display Venous Blood Gas: No Data to Display Pancreas Panel: Lipase 93 U/L (73-393) 12/05/21 07:31 Thyroid Panel: No Data to Display Infectious Disease: Coronavirus (COVID-19)(PCR) Negative (Negative) 12/05/21 09:39 Coronavirus 2019 Source Nasal/Nares 12/05/21 09:39 Blood Cultures: No Data to Display Toxicology Panel: No Data to Display Anesthesia Assessment and Plan Anesthesia History Personal History: No History of Anesthesia Complications Family History: No Family History of Anesthesia Complications Exercise Tolerance Exercise Tolerance: Metabolic Equivalents>4 Pertinent Negatives Pertinent Negatives: No Symptoms of GERD, No Major Cardiovascular Symptoms or Complaints and No Major Pulmonary Symptoms or Complaints Cardiac & Pulmonary Exam Cardiac Exam: Normal S1/S2 Heart Sounds Pulmonary Exam: Clear Bilateral Breath Sounds Implantable Cardiac Device Does patient have a Pacemaker or an ICD?: No Airway Exam Known Difficult Airway: No Mallampati Class: 1 Mouth Opening: Normal (> 3cm) Thyromental Distance: Greater than 3 cm Neck Range of Motion: Full ROM Neck Circumference: Normal Teeth Condition: Normal Dentition ASA Classification ASA Score: ASA 2 Emergency Case?: No NPO Status NPO Status: Full Stomach Anesthesia Plan Resuscitation Status: Full Code Anesthesia Technique: MAC Anesthesia Airway Planned: Natural Airway Monitors Used: Standard Monitors
[2021-12-30 12:34] VITALS: BMI 20.6
--- NOTE | 2021-12-30 12:35 | W.PM.DSUDISC ---
Discharge Plan Disposition Patient Disposition: HOME Condition: Good Discharge Details Attending Provider: Nita Kamara Primary Care Provider: Kaylin Walden Home Meds and New Rx's Prescriptions: New dibucaine 1 % ointment 1 applic [place] QID PRNQty: 56 2RF tramadol [Ultram] 50 mg tablet 50 mg PO Q6H PRNQty: 7 0RF Continued amitriptyline 10 mg tablet 10 mg PO QHS tramadol 50 mg tablet 50 mg PO Q4H PRN PRN (Reason: pain (scale score 7-10)) Qty: 7 0RF dibucaine 1 % ointment 1 applic [place] QID PRN (Reason: hemorrhoids) Qty: 56 6RF ibuprofen 200 mg Capsule 600 mg PO PRN PRN acetaminophen 500 mg Tablet 1,000 mg PO PRN PRN Discharge Instructions Additional Instructions: Home Care Instructions after Rectal Surgery Pain control:? Ibuprofen 600mg 6hrs (take w/ food. Do not take on an empty stomach) and Tylenol 1000mg by mouth (ibuprofen 400-600mg) every 8 hours.? Do not take if you have ulcers or sensitivity to aspirin.? Do not take Tylenol if you have hepatitis or liver failure. Alternate the Tylenol and ibuprofen.? Take pain meds continuously for the first 72hrs.? After 72hrs, you can take as needed if you are having pain.? How to prevent constipation: The first bowel movement after surgery will be painful. Do not let yourself get constipated. Stay on a stool softener for the first two weeks after surgery. ?It is recommended that you use a fiber supplement (Metamucil, Citrucel) daily (1 tablespoon in 8 oz of water). If you do not have a bowel movement daily, use Milk of Magnesia or Miralax. You may have bleeding or drainage after rectal surgery; especially when you move your bowels. Use a sanitary napkin to collect the discharge. If you are passing large clots or having to change the pad more than every 4 hours, call the clinic or go to the ER. You may experience spasms in the rectal muscles. This is normal after surgery and last for about two weeks. They can become more intense with bowel movements. The best remedy is to soak in a bathtub of plain warm water- no Epsom salts, essential oil or soap.? It takes about 10 minutes further the spasm to stop.? You may want to do this after BM as well. It is ok to shower. Avoid soap on the surgical area. Use a pillow to sit on. Follow a mild bland diet. Avoid alcohol, spicy food, citrus, and tomatoes. Avoid strenuous activity (running, jogging, and power walking, swimming, weight lifting) for two weeks. No lifting over 20 pounds for 2 weeks. Activity:: see above Remove Dressings/Wound Care:: 24 hours Shower/Bathe:: 24 hours Diet:: As Tolerated Discharge Orders Discharge Orders: Discharge Order (Routine); Ordered 12/30/21 Ordered By: Nita Kamara
[2021-12-30] MEDS: Lactated Ringers 1,000 ML 80 ML IV (12:43)
[2021-12-30] MEDS: Lidocaine/Prilocaine Cream 5 GM TUBE TP (12:45)
[2021-12-30] MEDS: Gabapentin 300 MG CAP 600 MG PO (13:01)
[2021-12-30 13:36] VITALS: BP 121/80; PULSE 71; RESP 16; TEMP 36.3; O2SAT 100
[2021-12-30 14:08] VITALS: BP 133/75; PULSE 67; RESP 16; TEMP 36.4; O2SAT 100
[2021-12-30] MEDS: traMADol 50 MG TAB PO (14:09)
--- NOTE | 2021-12-30 15:43 | W.ANESPOSTOP ---
Postoperative Evaluation Date, Time and Location Date Performed: 12/30/21 Time Performed: 14:15 Patient Location: Day Surgery Unit Vital Signs Most Recent Imported Vital Signs: Most Recent Vital Signs Temp Pulse Resp BP Pulse Ox 36.4 C L 67 16 133/75 100 12/30/21 14:08 12/30/21 14:08 12/30/21 14:08 12/30/21 14:08 12/30/21 14:08 Pain Score Most Recent Pain Score: Most Recent Pain Score Pain Level 0 12/30/21 14:08 Assessment Mental Status: Awake (Alert & Oriented to Patient Baseline) Airway and Respiratory Function: Patent airway with normal (patient baseline) respiratory exam Cardiovascular Function: Hemodynamically Stable Hydration Status: Adequately Hydrated Nausea & Vomiting: No Nausea or Vomiting Pain: Pt. Denies Any Pain Peripheral Nerve Block: Patient did not receive a nerve block
--- NOTE | 2021-12-31 15:35 | ROE_ITS ---
Date of service: 12/30/21 Time of Service: 13:00 Operative Note Operative Note DATE OF PROCEDURE: 12/30/21 PRE-OP DIAGNOSIS: recurrent thrombosed hemorrhoid POST-OP DIAGNOSIS: same PROCEDURE: I&D of thrombosed ext hemorrhoid SURGEON: Nita Kamara ANESTHESIA TYPE: Local By Surgeon and MAC Refer to Anesthesia Record ESTIMATED BLOOD LOSS: 5 PATHOLOGY: none sent COMPLICATIONS: None Patient was transported to: same day Patient's condition: stable Procedure Description: Patient had a pain ED of the thrombosed hemorrhoid as outpatient in the office on . Unfortunately she has developed a thrombosed hemorrhoid today she is being brought to the OR for excision. Informed consent is obtained explaining risks and benefits of the procedure including but not limited to: Bleeding, infection, recurrence, complications from anesthesia, damage to sphincters including stenosis or incontinence and other on for told complications patient is put into the lithotomy position anesthesia is administered per the department of anesthesia she is prepped and draped in usual sterile fashion using Betadine scrub solution. Timeout is performed. 10 cc of 1% manager electrical with epi is used for local anesthetization incision is made at the apex of the thrombosed external hemorrhoid at the 11 o'clock position and the clot is expressed. Redundant tissue was excised down to the sphincters. I did also remove some redundant tissue from of the thrombosis at the 7 o'clock position that was done on 12/30. Electrocautery is used to provide hemostasis. 2 stitches are used to provide hemostasis. Dibucaine impregnated Gelfoam is then placed in the rectum, and sterile dressings are applied. Patient tolerated procedure well without complication and transferred to same-day surgery in stable condition. Patient is discharged home in stable and satisfactory condition. She is given instructions in wound care activity and warning warning signs. She will follow- up in the surgical office in 1 week's time. This document was created using voice activated software and may contain errors
== END 2021-12-30 14:33 | disposition home or self-care (01) ==
LOC: ER 12:02 → SUR 12:08 → ER 12:14 → SUR 12:16
PROVIDERS: Emergency Provider Physician Assistant; PCP Nurse Practitioner Adult Health; Visit Provider Surgery
PROC: (CPT 46083; principal; 2021-12-30 14:00)
DX: K64.5 Perianal venous thrombosis (principal); F41.9 Anxiety disorder, unspecified; I10 Essential (primary) hypertension
CPT/HCPCS: 46083; 96360; 99285; J1885; J2250; J2405

== ENCOUNTER 2022-01-05 02:30 | Outpatient (CLI) | payer OTHER, SELFPAY ==
[2022-01-05 12:28] LABS: Abs Immature Grans 0.03 10^3/uL (0.0-0.06); Absolute Basophil Count 0.03 10^3/uL (0.0-0.2); Absolute Eosinophil Count 0.05 10^3/uL (0.0-0.7); Absolute Monocyte Count 0.58 10^3/uL (0.1-0.8); Absolute Neutrophil Count 6.01 10^3/uL (1.2-6.7); Basophils % 0.3; Eosinophils % 0.6; HCT 41.7 % (36.0-46.0); Immature Grans % 0.3; Lymphocytes % 25.6; MCH 30.6 pg (27.0-33.0); MCHC 33.6 % (32.0-36.0); MCV 91 fL (80-95); Monocytes % 6.4; Neutrophils % 66.8; Platelet Count 246 10^3/uL (130-400); RBC 4.57 10^6/uL (3.93-5.22); RDW-SD 43.8 fL
[2022-01-05 13:30] LABS: ALT 32 U/L (14-59); AST 22 U/L (15-37); Albumin 4.1 g/dL (3.4-5.0); Alkaline Phosphatase 65 U/L (46-116); Anion Gap 8.1 mmol/L (3-11); BUN 19 mg/dL (7-18); Bilirubin, Total 0.3 mg/dL (0.2-1.0); C-Reactive Protein 0.15 mg/dL (0.0-0.3); CO2 30.9 mmol/L (21.0-32.0); CREATININE 0.9 mg/dL (0.55-1.02); Calcium 9.5 mg/dL (8.5-10.1); Chloride 103 mmol/L (98-107); Estimated GFR 71.83 (mL/min/1.73m2); Glucose 84 mg/dL (74-106); Magnesium 2.1 mg/dL (1.8-2.4); Potassium 3.5 mmol/L (3.5-5.1); Sodium 142 mmol/L (136-145); Total Protein 8.1 g/dL (6.4-8.2); Vitamin B12 337 pg/mL (193-986)
[2022-01-05 13:40] LABS: Iron 126 ug/dL (50-170); Total Iron Binding Capacity 285 ug/dL (250-450); Transferrin Sat 44 % (15-50)
[2022-01-05 13:48] LABS: Vitamin D 25 Total 44.7 ng/mL (30-100)
[2022-01-09 13:03] LABS: IgA 225 mg/dL (85-499); Interpretation (See Note); Tissue Transglutaminase IgA <1.2 U/mL (<4.0)
[2022-01-09 17:44] LABS: Baker's Yeast, IgE <0.35 kU/L; Banana, IgE <0.35 kU/L; Barley, IgE <0.35 kU/L; Beef IgE <0.35 kU/L; Black/White Pepper IgE <0.35 kU/L; Cacao/Cocoa, IgE <0.35 kU/L; Cinnamon, IgE <0.35 kU/L; Corn-Food IgE <0.35 kU/L; Milk, IgE <0.35 kU/L; Onion, IgE <0.35 kU/L; Soybean IgE <0.35 kU/L; Strawberry, IgE <0.35 kU/L
[2022-01-09 18:14] LABS: Broccoli IgE <0.35 kU/L; Egg Whole IgE <0.10 kU/L
[2022-01-09 21:48] LABS: White Potato, IgE <0.35 kU/L
[2022-01-10 12:44] LABS: Beta-Carotene 27 ug/dL (3-91)
== END 2022-01-05 02:31 | disposition home or self-care (01) ==
LOC: LBO 02:31
PROVIDERS: PCP Nurse Practitioner Adult Health; Visit Provider Surgery
DX: K90.9 Intestinal malabsorption, unspecified (principal)
CPT/HCPCS: 36415; 80053; 82306; 82784; 83516; 86003; 82380; 82607; 82746; 83540; 83550; 83735; 85025; 86140

== ENCOUNTER 2022-01-26 08:26 | Outpatient (REF) | payer OTHER, SELFPAY | END 2022-01-26 08:27 | disposition home or self-care (01) | LOC: LBN 08:26 | PROVIDERS: PCP Nurse Practitioner Adult Health | DX: Z20.822 Contact with and (suspected) exposure to COVID-19 (principal) | CPT/HCPCS: 87635 ==

== ENCOUNTER 2022-03-13 13:22 | Outpatient (REF) | payer OTHER, SELFPAY | END 2022-03-13 13:23 | disposition home or self-care (01) | LOC: LBN 13:22 | PROVIDERS: PCP Nurse Practitioner Adult Health; Visit Provider Nurse Practitioner Adult Health | DX: N39.0 Urinary tract infection, site not specified (principal) | CPT/HCPCS: 87077; 87086; 87186 ==

== ENCOUNTER 2022-12-06 19:33 | Inpatient (IN) | payer OTHER, SELFPAY ==
[2022-12-06] VITALS (18 sets, daily range): BP systolic 125–189; BP diastolic 73–88; PULSE 73–99; RESP 18; TEMP 37.2–37.8; O2SAT 95–100
--- NOTE | 2022-12-06 19:45 | RT.EKG_ITS ---
APPROVED REPORT Exam: Resting ECG Reason for Exam: abdominal pain Patient Location: E HR:84 bpm ECG Measurements Heart Rate 84 AXIS NE 120 P 58 QRSd 96 QRS 55 QT 369 T 21 QTc 436 Conclusion Sinus rhythm...normal P axis, V-rate 60- 99 Probable left atrial enlargement...P >50mS, <-0.10mV V1 Narrow complex normal sinus rhythm at a rate of 84. Normal axis. Intervals within normal limits. M ild ST segment depressions in leads I, II, III, and aVF. No reciprocal changes. No prior for compar lashae. Also noted are mild ST segment depressions V4 through V6.
--- NOTE | 2022-12-06 19:45 | DI.CT_ITS ---
Exam(s) CT ABDOMEN PELVIS W EXAM: CT ABDOMEN PELVIS W CLINICAL HISTORY: llq abdominal pain. TECHNIQUE: Imaging Protocol: Axial computed tomography images with coronal and sagittal reformatted images were created and reviewed CONTRAST MATERIAL: Intravenous: Omnipaque-350 100cc Oral: None COMPARISON: CT CT ABDOMEN PELVIS W from 12/05/2021 FINDINGS: VISUALIZED LUNG BASES: No nodules nor pleural effusions evident. ABDOMEN: There is no ascites. LIVER: There are no focal hepatic lesions evident. No dilated intrahepatic ducts. GALLBLADDER/BILIARY: No obvious gallbladder pathology. CBD is not dilated. PANCREAS: No evidence of pancreatic mass nor dilatation of the pancreatic duct. SPLEEN: Spleen is not enlarged. No obvious intrasplenic lesions. Splenic and portal veins are paten t. ADRENALS: There are no significant adrenal masses. KIDNEYS:Small sub cm benign cortical cysts noted in both kidneys. No solid renal masses. No calculi nor hydronephrosis.. ABDOMINAL AORTA: Abdominal aorta is not enlarged. LYMPH NODES:There is no retroperitoneal nor paraaortic adenopathy. ABDOMINAL WALL: No evidence of significant anterior abdominal wall nor inguinal hernia. GI: There is diverticulosis of the descending-left colon and sigmoid and there is significant inflamm atory change at 2 separate locations in the sigmoid. In the upper sigmoid there is evidence of acute diverticulitis without perforation. Lower down in the presacral rectosigmoid region there is diffus e edema of the rectosigmoid wall. This is just below the level of extensive diverticulosis. However , is difficult to determine if this longer segment involvement is related to diverticulitis, colitis, or neoplasm. There is also a small amount of free fluid in the pelvis which may be per land. No formed abscess. No evidence of acute appendicitis. PELVIS: LYMPH NODES: There is no intrapelvic nor inguinal adenopathy. REPRODUCTIVE: Uterus size normal. No adnexal masses evident. URINARY BLADDER: No masses nor radiopaque calculi. There is no gas within the urinary bladder lumen to suggest fistulous communication from the diverticulitis of the sigmoid. OSSEOUS: No fractures and no significant osseous lesions. IMPRESSION: 1. Compared to the prior CT scan of 1 year ago there again noted significant findings in the sigmoid and rectosigmoid but at different locations from previous involvement. The previously involved area of this sigmoid exhibits extensive diverticulosis at this time. Above this level in the upper left i liac fossa there is evidence of acute diverticulitis. Below this level the rectosigmoid is now signi ficantly abnormal in appearance with circumferential wall edema. Although this may be related to div erticulitis, the possibility of neoplasm or colitis or a combination thereof is a significant conside ration here. There is a small amount of free fluid in the dependent aspect of the pelvis which may b e purulent but there is no formed abscess at this time. 2. This patient will require colonoscopy in the near future once this could episode at treated, this to rule out neoplasm/colitis in addition to the extensive diverticular disease. First read by [facility]. RADIATION DOSE DELIVERED: 580.37mGy.cm Total DLP DATA REPOSITORY: All CT scans at this facility are submitted to the National Radiology Data Registry (NRDR) Dose Index Registry (DIR) with the [employer] (ACR). RADIATION OPTIMIZATION: All CT scans at this facility use at least one of these dose optimization te chniques: automated exposure control; mA and/or kV adjustment per patient size (includes targeted exa ms where dose is matched to clinical indication); or iterative reconstruction.
[2022-12-06] MEDS: Lactated Ringers 1,000 ML 1000 ML IV (20:03)
[2022-12-06 20:07] LABS: Abs Immature Grans 0.07 10^3/uL (0.0-0.06); Absolute Basophil Count 0.03 10^3/uL (0.0-0.2); Absolute Eosinophil Count 0.02 10^3/uL (0.0-0.7); Absolute Lymphocyte Count 2.24 10^3/uL (1.2-3.4); Absolute Monocyte Count 1.13 10^3/uL (0.1-0.8); Basophils % 0.2; Eosinophils % 0.1; HCT 41.6 % (36.0-46.0); HGB 13.9 g/dL (11.2-15.7); Immature Grans % 0.5; Lymphocytes % 14.6; MCH 30.9 pg (27.0-33.0); MCHC 33.4 % (32.0-36.0); MCV 92 fL (80-95); MPV 8.9 fL (8.0-11.0); Monocytes % 7.4; Neutrophils % 77.2; Platelet Count 273 10^3/uL (130-400); RDW 13.1 % (11.7-14.6); RDW-SD 44.3 fL; WBC 15.33 10^3/uL (4.4-10.8)
[2022-12-06 20:08] LABS: Absolute Neutrophil Count 11.83 10^3/uL (1.2-6.7)
[2022-12-06 20:09] LABS: Bilirubin Negative (Negative); Blood Trace-intact (Negative); Clarity Clear (Clear); Glucose Negative (Negative); Ketones 15 mg/dL (Negative); Leukocyte Esterase Negative (Negative); Nitrite Negative (Negative); Urobilinogen 0.2 mg/dL (Up to 0.2); pH 5.5 (5-8)
[2022-12-06 20:20] LABS: Bacteria Negative HPF (Negative); C & S Indicated? No; Crystals Negative HPF (Negative); Epithelial Cells Rare HPF (Negative); Mucus Negative (Negative); RBC 0-2 HPF (0-2); WBC 0-2 HPF (0-5)
[2022-12-06 20:20] LABS: Lipase 39 U/L (16-77)
[2022-12-06 20:23] LABS: ALT 34 U/L (14-59); AST 23 U/L (15-37); Alkaline Phosphatase 80 U/L (46-116); Anion Gap 11.7 mmol/L (3-11); BUN 15 mg/dL (7-18); Bilirubin, Total 1.2 mg/dL (0.2-1.0); CO2 27.3 mmol/L (21.0-32.0); Calcium 9.2 mg/dL (8.5-10.1); Chloride 99 mmol/L (98-107); Glucose 106 mg/dL (74-106); Magnesium 1.9 mg/dL (1.8-2.4); Potassium 3.2 mmol/L (3.5-5.1); Sodium 138 mmol/L (136-145)
[2022-12-06] MEDS: Omnipaque 350 MG/ML 100 ML BTL IJ (20:23)
[2022-12-06] MEDS: fentaNYL 100 MCG/2 ML VIAL 50 MCG IVP (20:26)
[2022-12-06] MEDS: Normal Saline - Diluent 50 ML VIAL IJ (20:27)
--- NOTE | 2022-12-06 20:53 | DI.VRAD_ITS ---
PROCEDURE INFORMATION: Exam: CT Abdomen And Pelvis With Contrast Exam date and time: 12/06/2022 20:22 Age: 61 years old Clinical indication: Other: Llq abdominal pain TECHNIQUE: Imaging protocol: Computed tomography of the abdomen and pelvis with contrast. Radiation optimization: All CT scans at this facility use at least one of these dose optimization techniques: automated exposure control; mA and/or kV adjustment per patient size (includes targeted exams where dose is matched to clinical indication); or iterative reconstruction. Contrast material: OMNIPAQUE 350; Contrast volume: 100 ml; Contrast route: INTRAVENOUS (IV); COMPARISON: CT ABDOMEN PELVIS W 12/05/2021 08:23 FINDINGS: Liver: Tiny hepatic hypodensities likely small benign cysts or hemangiomas. No gross masses. Gallbladder and bile ducts: No calcified stones. No ductal dilation. Pancreas: No ductal dilation. No masses. Spleen: No splenomegaly or focal lesions. Adrenal glands: No mass. Kidneys and ureters: Mild dilation of the right ureter and right renal pelvis without calyceal dilation. No left hydronephrosis. Stomach and bowel: Acute moderate in severity inflammation of distal sigmoid colon. Colonic wall thickening without significant inflammation of diverticula favoring colitis. Acute moderate inflammation of proximal sigmoid colon/descending colon distally at the site of multiple diverticula. Extensive distal colonic diverticulosis. No focal pathology in the small bowel. Appendix: No evidence of appendicitis. Intraperitoneal space: Trace pelvic free fluid. No abscess or free air. Vasculature: No abdominal aortic aneurysm. Lymph nodes: No significantly enlarged lymph nodes. Urinary bladder: Unremarkable as visualized. Reproductive: Unremarkable as visualized. Bones/joints: No acute fracture or subluxation. Soft tissues: No suspicious lesions. IMPRESSION: 1. Acute moderate in severity distal sigmoid colitis favored over diverticulitis. 2. Acute moderate in severity proximal sigmoid/distal descending diverticulitis. 3. Trace pelvic free fluid. 4. Mild dilation of the right ureter and right renal pelvis without calyceal dilation, favor due to distal ureteral inflammation in the pelvis. 5. Additional findings as described. Dictated and Authenticated by: Marcia De León MD. Ordering:RADHA Max MD
--- NOTE | 2022-12-06 21:25 | W.PM.HP.N ---
Date of service: 12/06/22 Time of Service: 21:26 Assessment and Plan Assessment and plan (1) Diverticulitis large intestine: Start date: 12/06/22 Status: Acute Assessment and plan: This is a 61-year-old lady with recurrent diverticulitis with worsening symptoms and elevated WBC being admitted for IV antibiotic therapy and bowel rest with clear fluid diet. She was having some symptoms of nausea without vomiting. It appears to be slightly dilated renal collecting system on the right which is thought to be secondary to pelvic inflammation with some free fluid secondary to her diverticulitis. There is no abscess by CT scan. She does have previous perforation. She does see surgery locally and will follow-up as outpatient unless she has worsening symptoms despite antibiotic therapy IV. She is a full code. (2) Hydronephrosis of right kidney: Start date: 12/06/22 Status: Acute Assessment and plan: Right ureteral and pelvic dilatation thought to be secondary to distal right ureteral inflammation acute inflammatory process in the pelvis with diverticulitis. Consider ultrasound follow-up. Urology consultation if indicated. (3) Hepatic cyst: Start date: 12/06/22 Status: Acute Assessment and plan: This is an incidental finding on the CT of the abdomen and can be followed up as an outpatient with PCP. Radiology reading considers these to be small cyst or hemangiomas. History of Present Illness History of Present Illness Chief Complaint: 3 days of bloating with left lower quadrant abdominal pain worsening Narrative: This is a 61-year-old female patient had 3-day history of abdominal pain in the left lower quadrant with slight bloating. This is worsened and she reported to the ED for evaluation. Patient was also having mucousy stool without blood and previously had diverticulitis with perforation with this pain being similar. In the ED she was found to have an elevated WBC and CT scan positive for diverticulitis. There was no abscess or evidence of perforation patient did have slight peritoneal signs but focal. She has been seen in surgery locally in the past and there is no indication for acute surgical consultation but they can see the patient in follow-up once she is more comfortable. She was initiated on IV Cipro and Flagyl which will be continued. She will be on a clear fluid diet. Symptomatic treatment will also be rendered. She is a full code. Review of Systems Narrative: 13 point review of systems otherwise unrevealing or stable. 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 Labile hypertension Peripheral neuropathy Seborrheic keratosis Urinary incontinence Visual disturbance Surgical History H/O basal cell carcinoma excision Family History Father CAD (coronary artery disease) Hypertension Depression Cancer SMALL CELL LUNG CANCER Mother Hypertension Anxiety Breast cancer Brother Hypertension Depression Stroke HEMORRHAGIC STROKE AT AGE 51 Sister Hypertension Multiple polyps of sigmoid colon Sjogrens syndrome Sister Depression Paternal Aunt Diabetes Stroke Maternal Grandfather Stroke Maternal Grandmother Hypothyroidism Stroke Maternal Uncle Colon cancer Social History Smoking/Tobacco Use Status: Former Tobacco Use Smoking risk assessment performed?: Yes Alcohol Intake: current Alcohol Intake frequency: a few times a month Alcohol type: wine Details: 1 DRINK PER DAY Drug use: Never Substance use type: does not use Housing: house Number of Children: 2 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 Current gender identity: female What is your relationship status?: Panel score (0-1 are the most socially isolated patients): 0 Do you feel safe at home: Yes Do you feel safe in your relationship?: Yes Meds Allergies and Home Medications Allergies Allergy/AdvReac Type Severity Reaction Status Date / Time Penicillins Allergy Verified 01/23/22 11:50 Home Medications Medication Instructions Recorded Confirmed Type amitriptyline 10 mg tablet 10 mg PO QHS 12/29/21 01/26/22 History acetaminophen 500 mg tablet 1,000 mg PO PRN PRN 12/30/21 01/26/22 History ibuprofen 200 mg capsule 600 mg PO PRN PRN 12/30/21 01/26/22 History psyllium husk 0.4 gram capsule 0.4 g PO DAILY 01/05/22 01/26/22 History (Metamucil) Exam Narrative Exam Narrative: General: Patient appears appropriate for age, thinly built, alert and oriented x3 in no acute distress. HEENT: Normocephalic, eyes with pupils equal and react light symmetrically, extraocular movement intact and sclera anicteric. Oropharynx with moist [place]. Neck: Supple without JVD. Back: Normal posture without CVA tenderness. Lungs: Clear to auscultation percussion with normal aeration. No focalizing rales or rhonchi. Breast: Exam deferred. Heart: Regular rate and rhythm with no murmurs or gallops appreciated. Abdomen: Slightly protuberant but soft to palpation without tympany. Tender to palpation of the left lower quadrant with focal guarding and focal rebound which is minimal. She can be palpated deeply in the left lower quadrant though this is uncomfortable. Bowel sounds positive all quadrants. Genitalia/rectal: Exam deferred. Extremities: Without clubbing, cyanosis or pitting edema. Good capillary refill. No joint swelling. Skin: Normal color, warm and dry. Neuro: Cranial nerves II through XII gross intact, no focalizing motor deficits and no tremor. Psych: Normal affect and mood. Remote and recent memory intact. No abnormal thought processes. Results Imaging Imaging Studies: Exam: CT Abdomen And Pelvis With Contrast Exam date and time: 12/06/2022 20:22 Age: 61 years old Clinical indication: Other: Llq abdominal pain TECHNIQUE: Imaging protocol: Computed tomography of the abdomen and pelvis with contrast. Radiation optimization: All CT scans at this facility use at least one of these dose optimization techniques: automated exposure control; mA and/or kV adjustment per patient size (includes targeted exams where dose is matched to clinical indication); or iterative reconstruction. Contrast material: OMNIPAQUE 350; Contrast volume: 100 ml; Contrast route: INTRAVENOUS (IV);? COMPARISON: CT ABDOMEN PELVIS W 12/05/2021 08:23 FINDINGS: Liver: Tiny hepatic hypodensities likely small benign cysts or hemangiomas. No gross masses. Gallbladder and bile ducts: No calcified stones. No ductal dilation. Pancreas: No ductal dilation. No masses.? Spleen: No splenomegaly or focal lesions. Adrenal glands: No mass. Kidneys and ureters: Mild dilation of the right ureter and right renal pelvis without calyceal dilation. No left hydronephrosis. Stomach and bowel: Acute moderate in severity inflammation of distal sigmoid colon. Colonic wall thickening without significant inflammation of diverticula favoring colitis. Acute moderate inflammation of proximal sigmoid colon/descending colon distally at the site of multiple diverticula. Extensive distal colonic diverticulosis. No focal pathology in the small bowel. Appendix: No evidence of appendicitis. Intraperitoneal space: Trace pelvic free fluid. No abscess or free air. Vasculature: No abdominal aortic aneurysm. Lymph nodes: No significantly enlarged lymph nodes. Urinary bladder: Unremarkable as visualized. Reproductive: Unremarkable as visualized. Bones/joints: No acute fracture or subluxation. Soft tissues: No suspicious lesions.? IMPRESSION: 1. ? Acute moderate in severity distal sigmoid colitis favored over diverticulitis. 2. ? Acute moderate in severity proximal sigmoid/distal descending diverticulitis. 3. ? Trace pelvic free fluid. 4. ? Mild dilation of the right ureter and right renal pelvis without calyceal dilation, favor due to distal ureteral inflammation in the pelvis. 5. ? Additional findings as described. Labs 12/06/22 20:00 12/06/22 20:00 Labs: Laboratory Results - last 24 hr 12/06/22 12/06/22 12/06/22 19:45 20:00 20:00 WBC 15.33 H RBC 4.50 Hgb 13.9 Hct 41.6 MCV 92 MCH 30.9 MCHC 33.4 RDW 13.1 Plt Count 273 MPV 8.9 Immature Gran % 0.5 Neutrophils % 77.2 Lymphocytes % 14.6 Monocytes % 7.4 Eosinophils % 0.1 Basophils % 0.2 Nucleated RBC % 0.0 Absolute Neutrophils 11.83 H Absolute Lymphocytes 2.24 Absolute Monocytes 1.13 H Absolute Eosinophils 0.02 Absolute Basophils 0.03 Sodium 138 Potassium 3.2 L Chloride 99 Carbon Dioxide 27.3 Anion Gap 11.7 H BUN 15 Creatinine 1.0 Est GFR (CKD-EPI 2020) 63.30 Glucose 106 Calcium 9.2 Magnesium 1.9 Total Bilirubin 1.2 H AST 23 ALT 34 Alkaline Phosphatase 80 Total Protein 8.0 Albumin 4.0 Lipase Urine Color Yellow Urine Clarity Clear Urine pH 5.5 Ur Specific [place] 1.010 Urine Protein Negative Urine Ketones 15 H Urine Blood Trace-intact H Urine Nitrite Negative Urine Bilirubin Negative Urine Urobilinogen 0.2 Ur Leukocyte Esterase Negative Urine RBC 0-2 Urine WBC 0-2 Ur Epithelial Cells Rare Urine Crystals Negative Urine Bacteria Negative Urine Mucus Negative Ur Culture Indicated? No Urine Glucose Negative 12/06/22 20:00 WBC RBC Hgb Hct MCV MCH MCHC RDW Plt Count MPV Immature Gran % Neutrophils % Lymphocytes % Monocytes % Eosinophils % Basophils % Nucleated RBC % Absolute Neutrophils Absolute Lymphocytes Absolute Monocytes Absolute Eosinophils Absolute Basophils Sodium Potassium Chloride Carbon Dioxide Anion Gap BUN Creatinine Est GFR (CKD-EPI 2020) Glucose Calcium Magnesium Total Bilirubin AST ALT Alkaline Phosphatase Total Protein Albumin Lipase 39 Urine Color Urine Clarity Urine pH Ur Specific [place] Urine Protein Urine Ketones Urine Blood Urine Nitrite Urine Bilirubin Urine Urobilinogen Ur Leukocyte Esterase Urine RBC Urine WBC Ur Epithelial Cells Urine Crystals Urine Bacteria Urine Mucus Ur Culture Indicated? Urine Glucose Last Vital Signs Temp 37.2 C 12/06/22 19:37 Pulse 99 H 12/06/22 19:37 Resp 18 12/06/22 19:37 BP 189/88 H 12/06/22 19:37 Pulse Ox 99 12/06/22 19:37 Time Spent Time spent with Patient: 55-74 minutes Time was spent: preparing to see the patient(eg.review tests), obtaining and/or reviewing separately otained hiistory, ordering medications,tests, procedures, referring, communicating with other health career and transition teacher, indepentently interpreting results, counseling the patient and care coordination
[2022-12-06] MEDS: metroNIDAZOLE 500 MG/100 ML BAG 100 MG IVPB (21:34)
[2022-12-06] MEDS: oxyCODONE 5 MG TAB PO (21:34)
[2022-12-06] MEDS: MORPHine 4 MG/ML SYR IVP (21:34)
--- NOTE | 2022-12-06 22:11 | ED.GENADUL_ITS ---
Discharge Plan Disposition Patient Disposition: Admit to [facility] Condition: Stable Discharge Details Clinical Impression: Diverticulitis Primary Care Provider: Kaylin Walden ED Provider: Winter Julian Home Meds and New Rx's Prescriptions: No Action amitriptyline 10 mg tablet 10 mg PO QHS Patient Comments: not taking psyllium husk [Metamucil] 0.4 gram capsule 0.4 g PO DAILY Patient Comments: not taking ibuprofen 200 mg Capsule 600 mg PO PRN PRN Patient Comments: not taking acetaminophen 500 mg Tablet 1,000 mg PO PRN PRN Patient Comments: not taking Medical Decision Making 61-year-old female presenting with left lower quadrant pain, labs, CBC with a white count of 15,000, CT with evidence of sigmoid diverticulitis, and the proximal and distal sigmoid, moderate, patient feels as though she is in too much pain to be discharged home, requesting admission, will admit for acute leukocytosis in the presence of diverticulitis, will initiate Cipro, Flagyl, fluids, fentanyl, morphine, and 5 mg of oxycodone Case discussed with Dr. Tate who will accept patient to his service HPI General Date/Time Provider Initiated Documentation: 12/06/22 19:46 . HPI Narrative: This is a 61-year-old female who presents with 3 days of left lower quadrant pain mucousy stool. Denies any blood in stool. States she has had sharp pain with nausea without vomiting to her left lower quadrant. States it is worsening. Last year had diverticulitis with perforation. States her pain is similar today. Exacerbated by walking. Denies any urinary symptoms. Has had subjective fevers at home per patient. Related Data Home Medications Medication Instructions Recorded Confirmed amitriptyline 10 mg tablet 10 mg PO QHS 12/29/21 01/26/22 acetaminophen 500 mg tablet 1,000 mg PO PRN PRN 12/30/21 01/26/22 ibuprofen 200 mg capsule 600 mg PO PRN PRN 12/30/21 01/26/22 psyllium husk 0.4 gram capsule 0.4 g PO DAILY 01/05/22 01/26/22 (Metamucil) Allergies Allergy/AdvReac Type Severity Reaction Status Date / Time Penicillins Allergy Verified 01/23/22 11:50 General Stated Complaint: Abd Prob JEFF: 3 PFSH All Active Problems (Updated 12/06/22 @ 22:15 by DUANE Martinez) Diverticulitis (Chronic) Diverticulitis large intestine (Acute) Rectal fissure (Acute) Unintentional weight loss (Acute) Steatorrhea (Acute) Thrombosed hemorrhoids (Acute) Thrombosed hemorrhoids (Acute) Diverticulitis of large intestine with perforation (Acute) Left shoulder pain (Acute) Paresthesias (Acute) Vision loss of right eye (Acute) Injury of right thumb (Acute) Skier's thumb vs bony contusion Medical History Anxiety 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 Labile hypertension Peripheral neuropathy Seborrheic keratosis Urinary incontinence Visual disturbance Surgical History H/O basal cell carcinoma excision Family History Father CAD (coronary artery disease) Hypertension Depression Cancer SMALL CELL LUNG CANCER Mother Hypertension Anxiety Breast cancer Brother Hypertension Depression Stroke HEMORRHAGIC STROKE AT AGE 51 Sister Hypertension Multiple polyps of sigmoid colon Sjogrens syndrome Sister Depression Paternal Aunt Diabetes Stroke Maternal Grandfather Stroke Maternal Grandmother Hypothyroidism Stroke Maternal Uncle Colon cancer Social History Smoking/Tobacco Use Status: Former Tobacco Use Smoking risk assessment performed?: Yes Alcohol Intake: current Alcohol Intake frequency: a few times a month Alcohol type: wine Details: 1 DRINK PER DAY Drug use: Never Substance use type: does not use Number of Children: 2 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 Current gender identity: female What is your relationship status?: Panel score (0-1 are the most socially isolated patients): 0 Do you feel safe at home: Yes Do you feel safe in your relationship?: Yes Course Vital Signs Vital signs: Vital Signs Temperature 37.2 C 12/06/22 19:37 Pulse 99 H 12/06/22 19:37 Respiratory Rate 18 12/06/22 19:37 Blood Pressure 189/88 H 12/06/22 19:37 Pulse Oximetry 99 12/06/22 19:37 Temperature 37.2 C 12/06/22 19:37 Temperature Source Oral 12/06/22 19:37 Pulse 77 12/06/22 22:01 Respiratory Rate 18 12/06/22 19:37 Blood Pressure 139/73 12/06/22 22:01 Blood Pressure Mean 83 12/06/22 22:01 Pulse Oximetry 99 12/06/22 22:01 Oxygen Delivery Method Room Air 12/06/22 19:37 Oxygen Flow Rate 0 12/06/22 19:37 Lab/Test Results Lab/Test Results: Laboratory Tests Range/Units 12/06/22 12/06/22 12/06/22 19:45 20:00 20:00 WBC (4.4-10.8) 10^3/uL 15.33 H RBC (3.93-5.22) 10^6/uL 4.50 Hgb (11.2-15.7) g/dL 13.9 Hct (36.0-46.0) % 41.6 MCV (80-95) fL 92 MCH (27.0-33.0) pg 30.9 MCHC (32.0-36.0) % 33.4 RDW (11.7-14.6) % 13.1 Plt Count (130-400) 10^3/uL 273 MPV (8.0-11.0) fL 8.9 Immature Gran % 0.5 Neutrophils % 77.2 Lymphocytes % 14.6 Monocytes % 7.4 Eosinophils % 0.1 Basophils % 0.2 Nucleated RBC % (0.0-0.3) % 0.0 Absolute Neutrophils (1.2-6.7) 10^3/uL 11.83 H Absolute Lymphocytes (1.2-3.4) 10^3/uL 2.24 Absolute Monocytes (0.1-0.8) 10^3/uL 1.13 H Absolute Eosinophils (0.0-0.7) 10^3/uL 0.02 Absolute Basophils (0.0-0.2) 10^3/uL 0.03 Sodium (136-145) mmol/L 138 Potassium (3.5-5.1) mmol/L 3.2 L Chloride (98-107) mmol/L 99 Carbon Dioxide (21.0-32.0) mmol/L 27.3 Anion Gap (3-11) mmol/L 11.7 H BUN (7-18) mg/dL 15 Creatinine (0.55-1.02) mg/dL 1.0 Est GFR (CKD-EPI 2020) (mL/min/1.73m2) 63.30 Glucose (74-106) mg/dL 106 Calcium (8.5-10.1) mg/dL 9.2 Magnesium (1.8-2.4) mg/dL 1.9 Total Bilirubin (0.2-1.0) mg/dL 1.2 H AST (15-37) U/L 23 ALT (14-59) U/L 34 Alkaline Phosphatase (46-116) U/L 80 Total Protein (6.4-8.2) g/dL 8.0 Albumin (3.4-5.0) g/dL 4.0 Lipase (16-77) U/L Urine Color (Yellow) Yellow Urine Clarity (Clear) Clear Urine pH (5-8) 5.5 Ur Specific [place] (1.005-1.025) 1.010 Urine Protein (Negative) mg/dL Negative Urine Ketones (Negative) mg/dL 15 H Urine Blood (Negative) Trace-intact H Urine Nitrite (Negative) Negative Urine Bilirubin (Negative) Negative Urine Urobilinogen (Up to 0.2) mg/dL 0.2 Ur Leukocyte Esterase (Negative) Negative Urine RBC (0-2) HPF 0-2 Urine WBC (0-5) HPF 0-2 Ur Epithelial Cells (Negative) HPF Rare Urine Crystals (Negative) HPF Negative Urine Bacteria (Negative) HPF Negative Urine Mucus (Negative) Negative Ur Culture Indicated? No Urine Glucose (Negative) mg/dL Negative Range/Units 12/06/22 20:00 WBC (4.4-10.8) 10^3/uL RBC (3.93-5.22) 10^6/uL Hgb (11.2-15.7) g/dL Hct (36.0-46.0) % MCV (80-95) fL MCH (27.0-33.0) pg MCHC (32.0-36.0) % RDW (11.7-14.6) % Plt Count (130-400) 10^3/uL MPV (8.0-11.0) fL Immature Gran % Neutrophils % Lymphocytes % Monocytes % Eosinophils % Basophils % Nucleated RBC % (0.0-0.3) % Absolute Neutrophils (1.2-6.7) 10^3/uL Absolute Lymphocytes (1.2-3.4) 10^3/uL Absolute Monocytes (0.1-0.8) 10^3/uL Absolute Eosinophils (0.0-0.7) 10^3/uL Absolute Basophils (0.0-0.2) 10^3/uL Sodium (136-145) mmol/L Potassium (3.5-5.1) mmol/L Chloride (98-107) mmol/L Carbon Dioxide (21.0-32.0) mmol/L Anion Gap (3-11) mmol/L BUN (7-18) mg/dL Creatinine (0.55-1.02) mg/dL Est GFR (CKD-EPI 2020) (mL/min/1.73m2) Glucose (74-106) mg/dL Calcium (8.5-10.1) mg/dL Magnesium (1.8-2.4) mg/dL Total Bilirubin (0.2-1.0) mg/dL AST (15-37) U/L ALT (14-59) U/L Alkaline Phosphatase (46-116) U/L Total Protein (6.4-8.2) g/dL Albumin (3.4-5.0) g/dL Lipase (16-77) U/L 39 Urine Color (Yellow) Urine Clarity (Clear) Urine pH (5-8) Ur Specific [place] (1.005-1.025) Urine Protein (Negative) mg/dL Urine Ketones (Negative) mg/dL Urine Blood (Negative) Urine Nitrite (Negative) Urine Bilirubin (Negative) Urine Urobilinogen (Up to 0.2) mg/dL Ur Leukocyte Esterase (Negative) Urine RBC (0-2) HPF Urine WBC (0-5) HPF Ur Epithelial Cells (Negative) HPF Urine Crystals (Negative) HPF Urine Bacteria (Negative) HPF Urine Mucus (Negative) Ur Culture Indicated? Urine Glucose (Negative) mg/dL
[2022-12-06] MEDS: CIPROFLOXACIN 400 MG/200 ML BAG 200 MG IVPB (22:52)
[2022-12-06] MEDS: Heparin 5,000 UNITS/ML VIAL 5000 UNITS SC (22:53)
[2022-12-07] MEDS: POTASSIUM CHLORIDE/0.9% NACL 1,000 ML 100 MEQ IV ×2 (00:48→15:00)
[2022-12-07 04:05] VITALS: BP 124/72; PULSE 78; RESP 18; TEMP 36.9; O2SAT 99
[2022-12-07] MEDS: MORPHine 4 MG/ML SYR IVP (04:10)
[2022-12-07] MEDS: metroNIDAZOLE 500 MG/100 ML BAG 100 MG IVPB ×4 (04:20→22:22)
[2022-12-07] MEDS: Heparin 5,000 UNITS/ML VIAL 5000 UNITS SC ×3 (06:09→21:15)
[2022-12-07 07:26] LABS: HCT 34.2 % (36.0-46.0); HGB 11.5 g/dL (11.2-15.7); MCH 31.3 pg (27.0-33.0); MCHC 33.6 % (32.0-36.0); MCV 93 fL (80-95); MPV 9.7 fL (8.0-11.0); Platelet Count 233 10^3/uL (130-400); RBC 3.67 10^6/uL (3.93-5.22); RDW 13.2 % (11.7-14.6); RDW-SD 45.3 fL; WBC 13.17 10^3/uL (4.4-10.8)
[2022-12-07 07:41] LABS: ALT 21 U/L (14-59); AST 14 U/L (15-37); Albumin 2.9 g/dL (3.4-5.0); Alkaline Phosphatase 60 U/L (46-116); Anion Gap 7.9 mmol/L (3-11); BUN 13 mg/dL (7-18); Bilirubin, Total 1.5 mg/dL (0.2-1.0); CO2 28.1 mmol/L (21.0-32.0); CREATININE 0.8 mg/dL (0.55-1.02); Calcium 8.3 mg/dL (8.5-10.1); Chloride 102 mmol/L (98-107); Estimated GFR 82.74 (mL/min/1.73m2); Glucose 89 mg/dL (74-106); Magnesium 1.7 mg/dL (1.8-2.4); Potassium 3.5 mmol/L (3.5-5.1); Sodium 138 mmol/L (136-145); Total Protein 6.2 g/dL (6.4-8.2)
[2022-12-07 07:55] VITALS: BP 103/61; PULSE 68; RESP 18; TEMP 37.2; O2SAT 97
--- NOTE | 2022-12-07 10:56 | PDOC.CMIN ---
Date of service: 12/07/22 Time of Service: 10:56 Care Management Initial Assmt Initial Assessment REASON FOR HOSPITALIZATION:: diverticulitis PREVIOUS FUNCTIONAL STATUS/SOCIAL/FAMILY SUPPORTS:: Siena lives alone in a single family home in [place], [place]. 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 Siena has 2 adult children who live out of state. Siena is independent at baseline and receives no community services. She now spends her time biking, gardening and doing Yoga, all of which she enjoys. CURRENT FUNCTIONAL STATUS:: Siena was sitting up in bed when CM met with her. She was pleasant and engaged easily with CM, known to her from a previous hospital stay. Siena stated that she is feeling much better than when she was admitted. Her pain is improved and she has been able to tolerate a full liquid diet. Siena informed CM that she was hoping to be discharged today but is not sure that will happen. ADVANCE DIRECTIVES:: none on file Has patient been provided with info about the portal/API?: Yes Did the patient sign up for the portal?: No CODE STATUS:: Full Code INSURANCE COVERAGE / FINANCIAL ISSUES:: [employer] CURRENT HOME/COMMUNITY SERVICES/EQUIPMENT:: none PRIMARY CARE PHYSICIAN:: Kaylin Walden POTENTIAL DISCHARGE NEEDS:: Follow up with surgery, PCP and plan of care PATIENT/FAMILY EDUCATION NEEDS:: Review of discharge instructions, follow up plan, diet, activity, limitations, discuss Ask Me Three TRANSPORTATION:: via private vehicle with friend/family PLAN:: Siena will likely be discharged home with no new services. She will follow up with her surgeon, PCP and plan of care and transport with family. CM will follow and continue to assess for discharge needs. 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 Labile hypertension Peripheral neuropathy Seborrheic keratosis Urinary incontinence Visual disturbance Surgical History H/O basal cell carcinoma excision Family History Father CAD (coronary artery disease) Hypertension Depression Cancer SMALL CELL LUNG CANCER Mother Hypertension Anxiety Breast cancer Brother Hypertension Depression Stroke HEMORRHAGIC STROKE AT AGE 51 Sister Hypertension Multiple polyps of sigmoid colon Sjogrens syndrome Sister Depression Paternal Aunt Diabetes Stroke Maternal Grandfather Stroke Maternal Grandmother Hypothyroidism Stroke Maternal Uncle Colon cancer Social History Smoking/Tobacco Use Status: Former Tobacco Use Smoking risk assessment performed?: Yes Alcohol Intake: current Alcohol Intake frequency: a few times a month Alcohol type: wine Details: 1 DRINK PER DAY Drug use: Never Substance use type: does not use Housing: house Number of Children: 2 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
[2022-12-07 11:00] VITALS: BP 120/72; PULSE 68; RESP 18; TEMP 37.5; O2SAT 97
[2022-12-07] MEDS: Mylanta Suspension 30 ML CUP PO ×3 (11:01→19:42)
[2022-12-07 11:35] VITALS: BP 107/67; PULSE 74; RESP 18; TEMP 37.2; O2SAT 98
[2022-12-07] MEDS: CIPROFLOXACIN 400 MG/200 ML BAG 200 MG IVPB ×2 (11:51→21:16)
--- NOTE | 2022-12-07 12:53 | SCONE_ITS ---
Date of service: 12/07/22 Time of Service: 12:53 Assessment and Plan Assessment and plan (1) Diverticulitis: Status: Chronic Assessment and plan: This does seem consistent with recurrent diverticulitis. However, I do agree that this could be type lesions on the CAT scan are slightly atypical. At this point, her symptoms seem to be improving, her leukocytosis is certainly better. I would continue treating with antibiotics, and see how she progresses. We talked for a little while again about the natural history of diverticulitis. Now, with 2 hospitalizations for diverticulitis, it is probably worth giving more thoughtful consideration for with segmental resection in an elective fashion once the colitis is resolved. I think she would also benefit from an interval colonoscopy prior to any definitive procedures. Assuming she improves with antibiotics, we will make arrangements to see her in the office, and proceed with colonoscopy in the next few weeks. History of Present Illness History of Present Illness Chief Complaint: Abdominal pain Narrative: Is very nice to meet with Siena today. I have taken care of her before for diverticulitis. In fact, it was nearly 1 year ago to the date. Around that time, she had experienced acute onset of abdominal pain, and underwent a CAT scan of the abdomen and pelvis that demonstrated a small area of perforated d iverticulitis. She was treated with intravenous antibiotics, she did not have a drainable collection. Her hospital stay at that time was relatively uncomplicated, and she was subsequently discharged. It sounds like she saw some partners in the office after that hospitalization, and did require incision and drainage of a thrombosed external hemorrhoid. Since that time, she has done pretty well, with out any major significant recurrences of her diverticulitis. That is until most recently. Approximately 3 to 4 days ago, she noticed increasing abdominal pain. She is describes it as similar in nature to what she experienced before. She tried to modify her diet a little bit to see if that would improve the symptoms, but they continue to worsen. After the pain became more intense, she came to the emergency department, and underwent a CAT scan of the abdomen and pelvis that suggested recurrent diverticulitis. She does have some other abnormalities on the CAT scan that may represent separate area of colitis. She was since admitted, and resumed on Cipro and Flagyl. Leukocytosis is improving, and she says her pain is markedly improved today. She denies any nausea or vomiting. She has been tolerating clears ok Review of Systems Constitutional Constitutional: Denies body ache(s), Reports fatigue, Denies fever(s) and Reports poor appetite Eyes Eyes: Reports system reviewed and no additional complaints, except as documented Cardiovascular Cardiovascular: Reports system reviewed and no additional complaints, except as documented Respiratory Respiratory: Reports system reviewed and no additional complaints, except as documented Gastrointestinal Gastrointestinal: Reports abdominal pain, Denies melena, Denies hematochezia, Reports cramping and Denies vomiting Musculoskeletal Musculoskeletal: Reports system reviewed and no additional complaints, except as documented Neurologic Neurologic: Reports system reviewed and no additional complaints, except as documented Endocrine Endocrine: Reports fatigue Hematologic/Lymphatic Hematologic/Lymphatic: Reports system reviewed and no additional complaints, except as documented 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 Labile hypertension Peripheral neuropathy Seborrheic keratosis Urinary incontinence Visual disturbance Surgical History H/O basal cell carcinoma excision Family History Father CAD (coronary artery disease) Hypertension Depression Cancer SMALL CELL LUNG CANCER Mother Hypertension Anxiety Breast cancer Brother Hypertension Depression Stroke HEMORRHAGIC STROKE AT AGE 51 Sister Hypertension Multiple polyps of sigmoid colon Sjogrens syndrome Sister Depression Paternal Aunt Diabetes Stroke Maternal Grandfather Stroke Maternal Grandmother Hypothyroidism Stroke Maternal Uncle Colon cancer Social History Smoking/Tobacco Use Status: Former Tobacco Use Smoking risk assessment performed?: Yes Alcohol Intake: current Alcohol Intake frequency: a few times a month Alcohol type: wine Details: 1 DRINK PER DAY Drug use: Never Substance use type: does not use Housing: house Number of Children: 2 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 Current gender identity: female What is your relationship status?: Panel score (0-1 are the most socially isolated patients): 0 Do you feel safe at home: Yes Do you feel safe in your relationship?: Yes Exam Const General: cooperative, healthy appearing and no acute distress Nutritional Appearance: average body habitus Orientation: alert, awake and oriented x3 GI Inspection: normal to inspection and non-distended Palpation: soft, guarding, no hernias and tender Percussion: normal to percussion Auscultation: normal bowel sounds Results Last Vital Signs Temp 99.0 F 12/07/22 11:35 Pulse 74 12/07/22 11:35 Resp 18 12/07/22 11:35 BP 107/67 12/07/22 11:35 Pulse Ox 98 12/07/22 11:35 Labs 12/07/22 06:24 12/07/22 06:24 Labs: Laboratory Results - last 24 hr 12/06/22 12/06/22 12/06/22 19:45 20:00 20:00 WBC 15.33 H RBC 4.50 Hgb 13.9 Hct 41.6 MCV 92 MCH 30.9 MCHC 33.4 RDW 13.1 Plt Count 273 MPV 8.9 Immature Gran % 0.5 Neutrophils % 77.2 Lymphocytes % 14.6 Monocytes % 7.4 Eosinophils % 0.1 Basophils % 0.2 Nucleated RBC % 0.0 Absolute Neutrophils 11.83 H Absolute Lymphocytes 2.24 Absolute Monocytes 1.13 H Absolute Eosinophils 0.02 Absolute Basophils 0.03 Sodium 138 Potassium 3.2 L Chloride 99 Carbon Dioxide 27.3 Anion Gap 11.7 H BUN 15 Creatinine 1.0 Est GFR (CKD-EPI 2020) 63.30 Glucose 106 Calcium 9.2 Magnesium 1.9 Total Bilirubin 1.2 H AST 23 ALT 34 Alkaline Phosphatase 80 Total Protein 8.0 Albumin 4.0 Lipase Urine Color Yellow Urine Clarity Clear Urine pH 5.5 Ur Specific [place] 1.010 Urine Protein Negative Urine Ketones 15 H Urine Blood Trace-intact H Urine Nitrite Negative Urine Bilirubin Negative Urine Urobilinogen 0.2 Ur Leukocyte Esterase Negative Urine RBC 0-2 Urine WBC 0-2 Ur Epithelial Cells Rare Urine Crystals Negative Urine Bacteria Negative Urine Mucus Negative Ur Culture Indicated? No Urine Glucose Negative 12/06/22 12/07/22 12/07/22 20:00 06:24 06:24 WBC 13.17 H RBC 3.67 L Hgb 11.5 D Hct 34.2 L MCV 93 MCH 31.3 MCHC 33.6 RDW 13.2 Plt Count 233 MPV 9.7 Immature Gran % Neutrophils % Lymphocytes % Monocytes % Eosinophils % Basophils % Nucleated RBC % Absolute Neutrophils Absolute Lymphocytes Absolute Monocytes Absolute Eosinophils Absolute Basophils Sodium 138 Potassium 3.5 Chloride 102 Carbon Dioxide 28.1 Anion Gap 7.9 BUN 13 Creatinine 0.8 Est GFR (CKD-EPI 2020) 82.74 Glucose 89 Calcium 8.3 L Magnesium 1.7 L Total Bilirubin 1.5 H AST 14 L ALT 21 Alkaline Phosphatase 60 Total Protein 6.2 L Albumin 2.9 L Lipase 39 Urine Color Urine Clarity Urine pH Ur Specific [place] Urine Protein Urine Ketones Urine Blood Urine Nitrite Urine Bilirubin Urine Urobilinogen Ur Leukocyte Esterase Urine RBC Urine WBC Ur Epithelial Cells Urine Crystals Urine Bacteria Urine Mucus Ur Culture Indicated? Urine Glucose Imaging Abdomen CT scan report/results: report reviewed and image reviewed CT scan - pelvis: report reviewed and image reviewed
--- NOTE | 2022-12-07 14:37 | PGE_ITS ---
Date of Service Date of service: 12/07/22 Time of Service: 14:37 Assessment and Plan Assessment and plan (1) Diverticulitis large intestine: Start date: 12/06/22 Status: Acute Assessment and plan: This is a 61-year-old lady with recurrent diverticulitis with worsening symptoms and elevated WBC x 3 days. She was admitted for IV antibiotic therapy and bowel rest with clear fluid diet. She was having some symptoms of nausea without vomiting. It appears to be slightly dilated renal collecting system on the right which is thought to be secondary to pelvic inflammation with some free fluid secondary to her extensive diverticulitis. There is no abscess by CT scan. She does have previous perforation. Improving. Cont IV cipro and flagyl. Gen Surg consulted. (2) Hydronephrosis of right kidney: Start date: 12/06/22 Status: Acute Assessment and plan: Right ureteral and pelvic dilatation thought to be secondary to distal right ureteral inflammation acute inflammatory process in the pelvis with diverticulitis. Consider ultrasound follow-up. Urology consultation if indicated. (3) Hepatic cyst: Start date: 12/06/22 Status: Acute Assessment and plan: This is an incidental finding on the CT of the abdomen and can be followed up as an outpatient with PCP. Radiology reading considers these to be small cyst or hemangiomas. Subjective Subjective Patient reports: feels better, pain is less and afebrile; denies nausea or vomiting Exam Narrative Exam Narrative: General: Patient is pleasant, conversant and appears appropriate for age. Lungs: Clear to auscultation percussion with normal aeration. No focalizing rales or rhonchi. Heart: Regular rate and rhythm with no murmurs Abdomen: Soft, ND. Mild diffuse tenderness without guarding/rebound. Extremities: Without pitting edema. Skin: Normal color, warm and dry. Neuro: Cranial nerves II through XII gross intact, no focalizing motor deficits and no tremor. Psych: Normal affect and mood. Objective Last Vital Signs Temp 37.2 C 12/07/22 11:35 Pulse 74 12/07/22 11:35 Resp 18 12/07/22 11:35 BP 107/67 12/07/22 11:35 Pulse Ox 98 12/07/22 11:35 Laboratory Results - last 24 hr 12/06/22 12/06/22 12/06/22 19:45 20:00 20:00 WBC 15.33 H RBC 4.50 Hgb 13.9 Hct 41.6 MCV 92 MCH 30.9 MCHC 33.4 RDW 13.1 Plt Count 273 MPV 8.9 Immature Gran % 0.5 Neutrophils % 77.2 Lymphocytes % 14.6 Monocytes % 7.4 Eosinophils % 0.1 Basophils % 0.2 Nucleated RBC % 0.0 Absolute Neutrophils 11.83 H Absolute Lymphocytes 2.24 Absolute Monocytes 1.13 H Absolute Eosinophils 0.02 Absolute Basophils 0.03 Sodium 138 Potassium 3.2 L Chloride 99 Carbon Dioxide 27.3 Anion Gap 11.7 H BUN 15 Creatinine 1.0 Est GFR (CKD-EPI 2020) 63.30 Glucose 106 Calcium 9.2 Magnesium 1.9 Total Bilirubin 1.2 H AST 23 ALT 34 Alkaline Phosphatase 80 Total Protein 8.0 Albumin 4.0 Lipase Urine Color Yellow Urine Clarity Clear Urine pH 5.5 Ur Specific [place] 1.010 Urine Protein Negative Urine Ketones 15 H Urine Blood Trace-intact H Urine Nitrite Negative Urine Bilirubin Negative Urine Urobilinogen 0.2 Ur Leukocyte Esterase Negative Urine RBC 0-2 Urine WBC 0-2 Ur Epithelial Cells Rare Urine Crystals Negative Urine Bacteria Negative Urine Mucus Negative Ur Culture Indicated? No Urine Glucose Negative 12/06/22 12/07/22 12/07/22 20:00 06:24 06:24 WBC 13.17 H RBC 3.67 L Hgb 11.5 D Hct 34.2 L MCV 93 MCH 31.3 MCHC 33.6 RDW 13.2 Plt Count 233 MPV 9.7 Immature Gran % Neutrophils % Lymphocytes % Monocytes % Eosinophils % Basophils % Nucleated RBC % Absolute Neutrophils Absolute Lymphocytes Absolute Monocytes Absolute Eosinophils Absolute Basophils Sodium 138 Potassium 3.5 Chloride 102 Carbon Dioxide 28.1 Anion Gap 7.9 BUN 13 Creatinine 0.8 Est GFR (CKD-EPI 2020) 82.74 Glucose 89 Calcium 8.3 L Magnesium 1.7 L Total Bilirubin 1.5 H AST 14 L ALT 21 Alkaline Phosphatase 60 Total Protein 6.2 L Albumin 2.9 L Lipase 39 Urine Color Urine Clarity Urine pH Ur Specific [place] Urine Protein Urine Ketones Urine Blood Urine Nitrite Urine Bilirubin Urine Urobilinogen Ur Leukocyte Esterase Urine RBC Urine WBC Ur Epithelial Cells Urine Crystals Urine Bacteria Urine Mucus Ur Culture Indicated? Urine Glucose Time Spent with Patient Time Spent with Patient: 25-34 minutes Time was spent: preparing to see the patient(eg.review tests), obtaining and/or reviewing separately otained hiistory, ordering medications,tests, procedures, referring, communicating with other health resident care provider, indepentently interpreting results, counseling the patient and care coordination
[2022-12-07] MEDS: Magnesium Oxide 400 MG TAB PO ×2 (14:59→21:15)
--- NOTE | 2022-12-07 15:21 | CHAPLAIN ---
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 This is her second time with diverticulitis. She said she is feeling better today. Until this bout, she was active in biking and hiking this summer and hopes to get back to that.
[2022-12-07 15:28] VITALS: BP 138/78; PULSE 71; RESP 18; TEMP 37.2; O2SAT 99
[2022-12-07] MEDS: Acetaminophen 325 MG TAB PO (19:42)
[2022-12-07] MEDS: Amitriptyline 10 MG TAB PO (21:15)
[2022-12-07] MEDS: Dicyclomine 10 MG CAP PO (21:26)
[2022-12-08 00:07] VITALS: BP 130/68; PULSE 72; RESP 16; TEMP 37.2; O2SAT 98
[2022-12-08 03:29] VITALS: BP 113/70; PULSE 61; RESP 16; TEMP 36.5; O2SAT 98
[2022-12-08] MEDS: POTASSIUM CHLORIDE/0.9% NACL 1,000 ML 100 MEQ IV (04:47)
[2022-12-08] MEDS: Heparin 5,000 UNITS/ML VIAL 5000 UNITS SC (04:47)
[2022-12-08] MEDS: metroNIDAZOLE 500 MG/100 ML BAG 100 MG IVPB (04:48)
[2022-12-08 06:48] LABS: Abs Immature Grans 0.02 10^3/uL (0.0-0.06); Absolute Basophil Count 0.02 10^3/uL (0.0-0.2); Absolute Eosinophil Count 0.07 10^3/uL (0.0-0.7); Absolute Lymphocyte Count 1.33 10^3/uL (1.2-3.4); Absolute Monocyte Count 0.71 10^3/uL (0.1-0.8); Absolute Neutrophil Count 5.32 10^3/uL (1.2-6.7); Basophils % 0.3; Eosinophils % 0.9; HCT 31.7 % (36.0-46.0); HGB 10.7 g/dL (11.2-15.7); Immature Grans % 0.3; Lymphocytes % 17.8; MCH 31.7 pg (27.0-33.0); MCHC 33.8 % (32.0-36.0); MCV 94 fL (80-95); MPV 9.8 fL (8.0-11.0); Monocytes % 9.5; Neutrophils % 71.2; Platelet Count 206 10^3/uL (130-400); RBC 3.38 10^6/uL (3.93-5.22); RDW 13.2 % (11.7-14.6); RDW-SD 45.5 fL; WBC 7.47 10^3/uL (4.4-10.8)
[2022-12-08 07:01] LABS: ALT 26 U/L (14-59); AST 21 U/L (15-37); Albumin 2.7 g/dL (3.4-5.0); Alkaline Phosphatase 61 U/L (46-116); Anion Gap 6.6 mmol/L (3-11); BUN 8 mg/dL (7-18); Bilirubin, Total 0.5 mg/dL (0.2-1.0); CO2 27.4 mmol/L (21.0-32.0); CREATININE 0.7 mg/dL (0.55-1.02); Calcium 8.4 mg/dL (8.5-10.1); Chloride 108 mmol/L (98-107); Estimated GFR 97.12 (mL/min/1.73m2); Glucose 100 mg/dL (74-106); Potassium 3.8 mmol/L (3.5-5.1); Sodium 142 mmol/L (136-145); Total Protein 5.8 g/dL (6.4-8.2)
[2022-12-08] MEDS: Magnesium Oxide 400 MG TAB PO (08:06)
[2022-12-08 08:13] VITALS: BP 120/70; PULSE 67; RESP 16; TEMP 36.3; O2SAT 99
--- NOTE | 2022-12-08 08:21 | PDOC.CMPRO ---
Date of service: 12/08/22 Time of Service: 08:21 Care Management Progress Note Progress Note Text Progress Note Text: S/O: A: Siena is a 61 year old woman admitted on 12/06/22 with diverticulitis P:Siena will likely be discharged home with no new services. She will follow up with her surgeon, PCP and plan of care and transport with family. CM will follow and continue to assess for discharge needs.
--- NOTE | 2022-12-08 09:37 | DSE_ITS ---
Date of service: 12/08/22 Time of Service: 09:37 DS: Diagnosis Discharge Diagnosis (1) Diverticulitis: Status: Acute Discharge Plan Disposition Patient Disposition: Home Condition: Improving Discharge Details Reason For Visit: diverticulitis Admit Date/Time: 12/06/22 21:28 Admit Provider: Chuy Celis Attending Provider: Chuy Celis Primary Care Provider: Kaylin Walden Hospital Course Hospital Course: This is a 61-year-old female admitted to [facility] with recurrent diverticulitis. She was admitted for IV antibiotic therapy and bowel rest with clear fluid diet.? Also found on CT was a slightly dilated renal collecting system on the right which is thought to be secondary to pelvic inflammation with some free fluid secondary to her diverticulitis.? Consider ultrasound follow-up by outpatient team after her diverticulitis resolved with urology consultation if indicated. There is no abscess by CT scan.? She does have previous history of perforation.? She is followed by surgery locally and will follow-up as outpatient. Her diet advanced and she remains medically stable and ready for discharge to home. she will continue a one week course of cipro/flagyl. discharged to home with no services. discussed with Dr Aguilar Home Meds and New Rx's Prescriptions: New metronidazole 500 mg Tablet 500 mg PO Q8H Qty: 21 0RF ciprofloxacin HCl 500 mg Tablet 500 mg PO BID@0800,2000 Qty: 14 0RF ondansetron 4 mg tablet,disintegrating 4 mg PO Q8H PRNQty: 10 0RF Continued amitriptyline 10 mg tablet 10 mg PO QHS Patient Comments: not taking psyllium husk [Metamucil] 0.4 gram capsule 0.4 g PO DAILY Patient Comments: not taking Rx Instructions: pt reports she does not take any medications ibuprofen 200 mg Capsule 600 mg PO PRN PRN Patient Comments: not taking acetaminophen 500 mg Tablet 1,000 mg PO PRN PRN Patient Comments: not taking Discharge Instructions Instructions: Diverticulitis (DC) Additional Instructions: Should I change my diet if I have had diverticulitis? With diverticulitis, it's a good idea to eat a lot of fiber?after?your symptoms have gotten better. Good sources of fiber include fruits, oats, beans, peas, and green leafy vegetables. You do?not?need to avoid seeds, nuts, popcorn, or other similar foods. HOW MUCH FIBER DO I NEED?The recommended amount of dietary fiber is 20 to 35 grams per day. By reading the nutrition label on packaged foods, it is possible to determine the number of grams of dietary fiber per serving Dietary sources of fiber???The fiber content of many foods, including fruits and vegetables, is available in the table attached.. Breakfast cereals can be a good source of fiber. Some fruits and vegetables are particularly helpful in treating constipation, such as prunes and prune juice. Other sources of fiber???For those who do not like high-fiber foods such as fruits, beans, and vegetables, a good source of fiber is unprocessed wheat bran; one to two tablespoons can be mixed with food. One tablespoon of wheat bran contains approximately 1.6 grams of fiber. In addition, a number of fiber supplements are available. Examples include? psyllium The dose of the fiber supplement should be increased slowly to prevent gas and cramping, and the supplement should be taken with adequate fluid. The fiber in these supplements is mostly of the soluble type. Stand Alone Forms: Nursing Discharge Form Referrals: Kaylin Walden [Primary Care Provider] - 12/15/22 11:30 am Activity:: Activity as Tolerated Equipment/Supplies:: No Equipment Needed Diet:: As Tolerated DS: Summary Time Spent with Patient providing and/or coordinating discharge services: Less than 30 minutes Status at Discharge Functional status at discharge: independent ambulation Overall status at discharge: patient is progressing back to baseline Mental Status: mental status grossly normal Speech and Movement: speech and movement normal Mood: congruent mood Affect: normal affect Exam Psych Mental Status: mental status grossly normal Speech and Movement: speech and movement normal Mood: congruent mood Affect: normal affect DS: Data Vitals/I&O Vitals and I&O: Vital Signs Temperature 36.3 C L 12/08/22 08:13 Temperature Source Tympanic 12/08/22 08:13 Pulse 67 12/08/22 08:13 Pulse Rhythm Regular 12/07/22 22:39 Respiratory Rate 16 12/08/22 08:13 Respiratory Effort Normal 12/07/22 22:39 Respiratory Depth Normal 12/07/22 22:39 Respiratory Pattern Normal 12/07/22 22:39 Blood Pressure 120/70 12/08/22 08:13 Blood Pressure Mean 83 12/06/22 22:01 Pulse Oximetry 99 12/08/22 08:13 Oxygen Delivery Method Room Air 12/08/22 08:13 Oxygen Flow Rate 0 12/08/22 08:13 Pain Level 2 12/08/22 08:13 Intake & Output 12/07/22 12/07/22 12/08/22 11:59 23:59 11:59 Intake Total 1410 / 1820 410 / 1820 1000 / 1000 Output Total 550 / 1100 550 / 1100 750 / 750 Balance 860 / 720 -140 / 720 250 / 250 Weight 53.81 kg Intake: IV 1410 / 1820 410 / 1820 1000 / 1000 Output: Urine 550 / 1100 550 / 1100 750 / 750 Other: Urine Color Yellow Yellow Dark Melanie Urine Appearance Clear Clear Clear Urine Odor None Voiding Methods Toilet Toilet Toilet Data Completed and Pending Labs on day of discharge: Labs from last 24 hours 12/08/22 12/08/22 12/08/22 06:13 06:13 06:13 WBC 7.47 RBC 3.38 L Hgb 10.7 L Hct 31.7 L MCV 94 MCH 31.7 MCHC 33.8 RDW 13.2 Plt Count 206 MPV 9.8 Immature Gran % 0.3 Neutrophils % 71.2 Lymphocytes % 17.8 Monocytes % 9.5 Eosinophils % 0.9 Basophils % 0.3 Nucleated RBC % 0.0 Absolute Neutrophils 5.32 Absolute Lymphocytes 1.33 Absolute Monocytes 0.71 Absolute Eosinophils 0.07 Absolute Basophils 0.02 Sodium 142 Potassium 3.8 Chloride 108 H Carbon Dioxide 27.4 Anion Gap 6.6 BUN 8 Creatinine 0.7 Est GFR (CKD-EPI 2020) 97.12 Glucose 100 Calcium 8.4 L Magnesium 2.0 Total Bilirubin 0.5 AST 21 ALT 26 Alkaline Phosphatase 61 Total Protein 5.8 L Albumin 2.7 L PFSH All Active Problems (Updated 12/08/22 @ 11:33 by Amy Isabel NP) Hepatic cyst (Acute) Hydronephrosis of right kidney (Acute) Diverticulitis (Acute) Diverticulitis large intestine (Acute) Rectal fissure (Acute) Unintentional weight loss (Acute) Steatorrhea (Acute) Thrombosed hemorrhoids (Acute) Thrombosed hemorrhoids (Acute) Diverticulitis of large intestine with perforation (Acute) Left shoulder pain (Acute) Paresthesias (Acute) Vision loss of right eye (Acute) Injury of right thumb (Acute) Skier's thumb vs bony contusion Medical History Anxiety 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 Labile hypertension Peripheral neuropathy Seborrheic keratosis Urinary incontinence Visual disturbance Surgical History H/O basal cell carcinoma excision Family History Father CAD (coronary artery disease) Hypertension Depression Cancer SMALL CELL LUNG CANCER Mother Hypertension Anxiety Breast cancer Brother Hypertension Depression Stroke HEMORRHAGIC STROKE AT AGE 51 Sister Hypertension Multiple polyps of sigmoid colon Sjogrens syndrome Sister Depression Paternal Aunt Diabetes Stroke Maternal Grandfather Stroke Maternal Grandmother Hypothyroidism Stroke Maternal Uncle Colon cancer Social History Smoking/Tobacco Use Status: Former Tobacco Use Smoking risk assessment performed?: Yes Alcohol Intake: current Alcohol Intake frequency: a few times a month Alcohol type: wine Details: 1 DRINK PER DAY Drug use: Never Substance use type: does not use Housing: house Number of Children: 2 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
[2022-12-08] MEDS: metroNIDAZOLE 500 MG TAB PO (10:06)
[2022-12-08] MEDS: Ciprofloxacin 500 MG TAB PO (10:06)
--- NOTE | 2022-12-08 10:11 | PDOC.CMDIS ---
Date of service: 12/08/22 Time of Service: 10:11 LACE Index Scoring Tool Questions: Length of Stay (in days): 2 Was the patient admitted via the E.D.?: Yes E.D. Visits: 1 Answers: Total Score: 6 Risk of Readmission: Low Risk Care Management Discharge Plan Reason for Hospitalization: diverticulitis Discharge Plan: Siena will be discharged home with no new services. She will follow up with her surgeon, PCP and plan of care as prescribed. Siena will drive herself home. Patient/Family Education Needs: Review of discharge instructions, follow up plan, diet, activity, limitations, discuss Ask Me Three
[2022-12-08 11:28] VITALS: BP 151/81; PULSE 71; RESP 18; TEMP 36.9; O2SAT 100
[2022-12-08] MEDS: Mylanta Suspension 30 ML CUP PO (11:32)
[2022-12-08] MEDS: Ondansetron O.D.T. 4 MG TABEF PO (11:53)
== END 2022-12-08 13:42 | disposition home or self-care (01) | DRG 392 ==
LOC: ER 22:17 → MS 22:19
PROVIDERS: Family Medicine; Admitting Provider Family Medicine; Emergency Provider Physician Assistant; PCP Nurse Practitioner Adult Health; Visit Provider Family Medicine
DX: K57.32 Diverticulitis of large intestine without perforation or abscess without bleeding (principal); N13.30 Unspecified hydronephrosis; Z68.1 Body mass index [BMI] 19.9 or less, adult; F41.9 Anxiety disorder, unspecified; I10 Essential (primary) hypertension; G62.9 Polyneuropathy, unspecified; K76.89 Other specified diseases of liver; R25.3 Fasciculation; R63.4 Abnormal weight loss; K58.0 Irritable bowel syndrome with diarrhea; R32 Unspecified urinary incontinence; Z87.891 Personal history of nicotine dependence
CPT/HCPCS: 36415; 80053; 83690; 85027; 93005; 96361; 96374; 96375; 99285; 74177; 81003; 81015; 83735; 85025; 93010; 99222; 99232; 99238; J0744; J1644; J2270; J3010; J3490

== ENCOUNTER 2023-01-27 12:40 | Emergency (ER) | payer OTHER, SELFPAY ==
--- NOTE | 2023-01-27 12:45 | RT.EKG_ITS ---
APPROVED REPORT Exam: Resting ECG Reason for Exam: epigatric pain Patient Location: E HR:74 bpm ECG Measurements Heart Rate 74 AXIS NH 142 P 77 QRSd 94 QRS 55 QT 390 T 40 QTc 434 Conclusion sinus rate 74 normal axis no acute ischemic change There are no significant changes compared to prior EKG performed on 12/06/2022 at 19:56.
[2023-01-27 12:48] VITALS: BP 178/87; PULSE 86; RESP 20; TEMP 36.8; O2SAT 97
--- NOTE | 2023-01-27 13:00 | DI.CT_ITS ---
Exam(s) CT ABDOMEN PELVIS W EXAM: CT ABDOMEN PELVIS W CLINICAL HISTORY: epigastric abdom pain. TECHNIQUE: Imaging Protocol: Axial computed tomography images with coronal and sagittal reformatted images were created and reviewed CONTRAST MATERIAL: Intravenous: Omnipaque 350 Contrast volume:100 ml Oral: yes / no COMPARISON: CT CT ABDOMEN PELVIS W from 12/06/2022 FINDINGS: ABDOMEN and PELVIS: Lung Bases: Normal where visualized. Liver: Normal density. No measurable mass. Gallbladder and biliary tract: No radiodense calculus or dilation. Pancreas: Normal density. No abnormal calcifications or inflammatory process. No evidence of mass. Spleen: Normal. Kidneys: Normal size, contour and axis. No radiodense stones. No obstructive uropathy. No suspicious masses seen. Adrenal glands: No masses seen. Vasculature: Abdominal aorta non-dilated. Soft tissues: Unremarkable. Bladder: No gross wall thickening. No calculi.No focal mass. Bowel: Stomach not well evaluated due to lack of contrast and lack of surrounding intra-abdominal fat . Diverticulosis. No evidence of diverticulitis. No gross evidence of mass. No obstruction. No bowel wall thickening. Appendix normal.Normal quantity of stool. Peritoneal cavity: No ascites. No focal collection or mesenteric inflammatory response. Bones: Unremarkable for age. Reproductive organs: Within normal limits. Lymph nodes: Unremarkable. IMPRESSION:: Stomach nearly empty and not well evaluated. Clinical correlation recommended regardin g gastritis. RADIATION DOSE DELIVERED: Total DLP DATA REPOSITORY: All CT scans at this facility are submitted to the National Radiology Data Registry (NRDR) Dose Index Registry (DIR) with the [employer] (ACR). RADIATION OPTIMIZATION: All CT scans at this facility use at least one of these dose optimization te chniques: automated exposure control; mA and/or kV adjustment per patient size (includes targeted exa ms where dose is matched to clinical indication); or iterative reconstruction.
--- NOTE | 2023-01-27 13:28 | ED.GENADUL_ITS ---
Discharge Plan Disposition Patient Disposition: Home Condition: Good Discharge Details Clinical Impression: Abdominal pain Primary Care Provider: Kaylin Walden ED Provider: Mindi Barker Home Meds and New Rx's Prescriptions: No Action amitriptyline 10 mg tablet 10 mg PO QHS PRN Patient Comments: not taking psyllium husk [Metamucil] 0.4 gram capsule 0.4 g PO DAILY Patient Comments: not taking Rx Instructions: pt reports she does not take any medications estradiol 0.01 % (0.1 mg/gram) cream 1 g vaginal DAILY Rx Instructions: for 14 days estradiol 0.01 % (0.1 mg/gram) cream 0.25 appful vaginal .3 times a week ibuprofen 200 mg Capsule 600 mg PO PRN PRN Patient Comments: not taking acetaminophen 500 mg Tablet 1,000 mg PO PRN PRN Patient Comments: not taking EyeProtect 7,160-113-100 [id number] tablet PO DAILY Culturelle 10 billion cell capsule 1 cap PO DAILY Discharge Instructions Instructions: Abdominal Pain (ED) Additional Instructions: CAN START MIRALAX 1 CAP DAILY INCREASE WATER INTAKE FOLLOW UP WITH SEVERE SYMPTOMS, NOT TOLERATING PO Medical Decision Making Emergent evaluation of abdominal pain. Initial differential includes pancreatitis, colitis, likely bowel obstruction given lack of surgical history. Given age and gender, also consider ACS. EKG without acute ischemic changes. Will get lab work including cardiac biomarkers and CT imaging of the abdomen for further evaluation. Will give medication for symptom relief. 1420: Lab work reviewed, no clinically significant abnormalities. 1445: Urinalysis without infection 1500: CT scan reviewed, no acute intra-abdominal process. At the area of pain, likely gas and stool related. Recommend MiraLAX, increase fiber and water. Patient symptoms have improved with medications given in the emergency department. She is otherwise well-appearing. No additional emergent work-up indicated. Stable for discharge home. Return precautions advised. Follow-up as needed. Medical Records Medical records reviewed: Yes I reviewed the patient's medical records. Lab Data Lab results reviewed: Yes I reviewed the patient's lab results. ECG Data Attestation: I personally reviewed and interpreted this ECG (s) as follows: Prior ECG tracings: available for review Interpretation: Sinus 74, normal axis, no acute ischemic changes, no change from prior HPI General Date/Time Provider Initiated Documentation: 01/27/23 13:09 . Limitations to Documentation: no limitations . Information obtained by: patient . HPI Narrative: 62-year-old female with history of diverticulitis presents for evaluation of left upper quadrant abdominal pain. Symptoms started today. They are constant, intermittent severity of pain. States that it feels very colicky. Pain localized to the epigastric area with radiation into the left and into her chest. Not associated with chest pain or shortness of breath. Mild nausea, no vomiting. Is still having bowel movements daily. Reports that she feels like her abdomen is bloated. Related Data Home Medications Medication Instructions Recorded Confirmed acetaminophen 500 mg tablet 1,000 mg PO PRN PRN 12/30/21 01/27/23 ibuprofen 200 mg capsule 600 mg PO PRN PRN 12/30/21 01/27/23 psyllium husk 0.4 gram capsule 0.4 g PO DAILY 01/05/22 01/27/23 (Metamucil) estradiol 0.01% (0.1 mg/gram) 0.25 appful vaginal .3 times a week 12/11/22 01/27/23 vaginal cream estradiol 0.01% (0.1 mg/gram) 1 g vaginal DAILY 12/11/22 01/27/23 vaginal cream amitriptyline 10 mg tablet 10 mg PO QHS PRN 12/13/22 01/27/23 Lactobacillus rhamnosus GG 10 1 cap PO DAILY 01/27/23 01/27/23 billion cell capsule (Culturelle) vit A 7,160 unit-vit C 113 mg-vit tab PO DAILY 01/27/23 E 100 [id number] tablet (EyeProtect) Allergies Allergy/AdvReac Type Severity Reaction Status Date / Time erythromycin base Allergy Intermediate severe gi Verified 01/27/23 12:57 upset hydrochlorothiazide Allergy Intermediate Dizziness/L Verified 01/27/23 12:57 ighthead Penicillins Allergy Verified 01/27/23 12:57 amitriptyline AdvReac Intermediate SVT on 50 Verified 01/27/23 12:57 mg General Stated Complaint: Abd Prob JEFF: 3 PFSH All Active Problems (Updated 01/27/23 @ 15:14 by Mindi Barker MD) Abdominal pain (Acute) Hepatic cyst (Acute) Hydronephrosis of right kidney (Acute) Diverticulitis (Acute) Diverticulitis large intestine (Acute) Rectal fissure (Acute) Unintentional weight loss (Acute) Steatorrhea (Acute) Thrombosed hemorrhoids (Acute) Thrombosed hemorrhoids (Acute) Diverticulitis of large intestine with perforation (Acute) Left shoulder pain (Acute) Paresthesias (Acute) Vision loss of right eye (Acute) Injury of right thumb (Acute) Skier's thumb vs bony contusion Medical History Myalgia Muscle weakness Benign fasciculation-cramp syndrome Anxiety Urinary incontinence Peripheral neuropathy Seborrheic keratosis Labile hypertension History of IBS diarrhea prone Visual disturbance Surgical History H/O basal cell carcinoma excision Family History Father CAD (coronary artery disease) Hypertension Depression Cancer SMALL CELL LUNG CANCER Mother Hypertension Anxiety Breast cancer Brother Hypertension Depression Stroke HEMORRHAGIC STROKE AT AGE 51 Sister Hypertension Multiple polyps of sigmoid colon Sjogrens syndrome Sister Depression Paternal Aunt Diabetes Stroke Maternal Grandfather Stroke Maternal Grandmother Hypothyroidism Stroke Maternal Uncle Colon cancer Social History Smoking/Tobacco Use Status: Former Tobacco Use Smoking risk assessment performed?: Yes Alcohol Intake: current Alcohol Intake frequency: a few times a month Alcohol type: wine Details: 1 DRINK PER DAY Drug use: Never Substance use type: does not use Housing: house Number of Children: 2 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 Peripheral pulses 2+ and equal in all extremities Brisk capillary refill in all extremities. No peripheral edema RESP: Unlabored respiratory effort, Clear to auscultation bilaterally No wheezes rales or rhonchi GI: Soft, tenderness in the epigastric and left upper quadrant area, no guarding or rebound, Nondistended, No organomegaly MSK: Extremities with full range of motion, no deformity or TTP SKIN: Warm, Dry. No rashes or lesions. NEURO: No focal neurologic deficits. 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 Sensation grossly intact Normal strength throughout PSYCH: Appropriate mood and affect Course Vital Signs Vital signs: Vital Signs Temperature 36.8 C 01/27/23 12:48 Pulse 86 01/27/23 12:48 Respiratory Rate 20 01/27/23 12:48 Blood Pressure 178/87 H 01/27/23 12:48 Pulse Oximetry 97 01/27/23 12:48 Temperature 36.8 C 01/27/23 12:48 Temperature Source Oral 01/27/23 12:48 Pulse 86 01/27/23 12:48 Respiratory Rate 20 01/27/23 12:48 Respiratory Effort Normal 01/27/23 12:54 Blood Pressure 178/87 H 01/27/23 12:48 Blood Pressure Position Supine 01/27/23 12:48 Pulse Oximetry 97 01/27/23 12:48 Oxygen Delivery Method Room Air 01/27/23 12:48 Oxygen Flow Rate 0 01/27/23 12:48 Pain Level 6 01/27/23 12:54
[2023-01-27] MEDS: Ketorolac 15 MG/ML VIAL 10 MG IVP (13:34)
[2023-01-27] MEDS: Ondansetron 4 MG/2 ML VIAL IVP (13:34)
[2023-01-27 13:40] LABS: Abs Immature Grans 0.01 10^3/uL (0.0-0.06); Absolute Basophil Count 0.03 10^3/uL (0.0-0.2); Absolute Eosinophil Count 0.01 10^3/uL (0.0-0.7); Absolute Lymphocyte Count 1.24 10^3/uL (1.2-3.4); Absolute Monocyte Count 0.38 10^3/uL (0.1-0.8); Absolute Neutrophil Count 6.12 10^3/uL (1.2-6.7); Basophils % 0.4; Eosinophils % 0.1; HCT 41.7 % (36.0-46.0); Immature Grans % 0.1; Lymphocytes % 15.9; MCHC 33.6 % (32.0-36.0); MCV 92 fL (80-95); MPV 9.2 fL (8.0-11.0); Monocytes % 4.9; Neutrophils % 78.6; Platelet Count 310 10^3/uL (130-400); RBC 4.52 10^6/uL (3.93-5.22); RDW 12.9 % (11.7-14.6); RDW-SD 43.6 fL; WBC 7.79 10^3/uL (4.4-10.8)
[2023-01-27 14:03] LABS: ALT 40 U/L (14-59); AST 23 U/L (15-37); Albumin 4.3 g/dL (3.4-5.0); Alkaline Phosphatase 68 U/L (46-116); Anion Gap 5.8 mmol/L (3-11); BUN 14 mg/dL (7-18); Bilirubin, Total 0.5 mg/dL (0.2-1.0); CO2 30.2 mmol/L (21.0-32.0); CREATININE 0.8 mg/dL (0.55-1.02); Calcium 9.5 mg/dL (8.5-10.1); Chloride 103 mmol/L (98-107); Estimated GFR 82.23 (mL/min/1.73m2); Glucose 118 mg/dL (74-106); Lipase 50 U/L (16-77); Potassium 3.8 mmol/L (3.5-5.1); Sodium 139 mmol/L (136-145); Troponin I < 50 ng/L (<or=60)
[2023-01-27 14:38] LABS: Bilirubin Negative (Negative); Blood Negative (Negative); Clarity Clear (Clear); Glucose Negative (Negative); Ketones Negative (Negative); Leukocyte Esterase Negative (Negative); Nitrite Negative (Negative); Specific Gravity 1.015 (1.005-1.025); Urobilinogen 0.2 mg/dL (Up to 0.2)
[2023-01-27] MEDS: Normal Saline Flush 10 ML SYR IVP (14:42)
[2023-01-27] MEDS: Normal Saline - Diluent 50 ML VIAL IJ (14:42)
[2023-01-27] MEDS: Omnipaque 350 MG/ML 100 ML BTL IJ (14:43)
--- NOTE | 2023-01-27 15:46 | DI.VRAD_ITS ---
PROCEDURE INFORMATION: Exam: CT Abdomen And Pelvis With Contrast Exam date and time: 01/27/2023 2:39 PM Age: 62 years old Clinical indication: Other: Epiastric abdominal pain TECHNIQUE: Imaging protocol: Computed tomography of the abdomen and pelvis with contrast. Radiation optimization: All CT scans at this facility use at least one of these dose optimization techniques: automated exposure control; mA and/or kV adjustment per patient size (includes targeted exams where dose is matched to clinical indication); or iterative reconstruction. Contrast material: OMNI 350; Contrast volume: 100 ml; Contrast route: INTRAVENOUS (IV); COMPARISON: CT ABDOMEN PELVIS W 09/08/2022 20:22 FINDINGS: Liver: Stable hypodensity in the right hepatic lobe. No hepatic mass lesions. Gallbladder and bile ducts: Mild prominence of the intrahepatic biliary ducts similar to prior CT. No hepatic mass lesion identified. Pancreas: Normal. No ductal dilation. Spleen: Normal. No splenomegaly. Adrenal glands: Normal. No mass. Kidneys and ureters: Stable simple bilateral renal cysts. No hydronephrosis or hydroureter. Prominent right renal pelvis similar to prior study. Stomach and bowel: Contracted stomach with thickened irregular wall and mild infiltration of the Katherine gastric fat. Normal caliber small bowel. Diverticulosis. No CT evidence of diverticulitis. Small amount of fluid in the distal stomach. Appendix: No evidence of appendicitis. Intraperitoneal space: Unremarkable. No free air. No significant fluid collection. Vasculature: Unremarkable. No abdominal aortic aneurysm. Lymph nodes: Unremarkable. No enlarged lymph nodes. Urinary bladder: Unremarkable as visualized. Reproductive: Unremarkable as visualized. Bones/joints: Unremarkable. No acute fracture. Soft tissues: Unremarkable. IMPRESSION: 1. Thickened irregular gastric wall with mild infiltration of the Katherine gastric fat of concern for gastritis versus nondistention of the stomach. Recommend GI consult and colonoscopy or upper GI further evaluation. 2. Additional findings as discussed above. Dictated and Authenticated by: Hermelinda Calderon MD. Ordering:BenignoTREMAYNE Jasmine MD
== END 2023-01-27 15:19 | disposition home or self-care (01) ==
PROVIDERS: Emergency Provider Emergency Medicine; PCP Nurse Practitioner Adult Health
DX: R10.12 Left upper quadrant pain (principal); Z87.19 Personal history of other diseases of the digestive system
CPT/HCPCS: 80053; 83690; 93005; 96374; 96375; 99285; 74177; 81003; 84484; 85025; 93010; 99284; J1885; J2405; J3490

== ENCOUNTER 2023-02-01 10:40 | Day surgery (SDC) | payer OTHER, SELFPAY ==
--- NOTE | 2023-01-31 16:38 | W.PREOPHP ---
Assessment and Plan Assessment and plan (1) Abdominal pain: Status: Acute Assessment and plan: We reviewed the plan for diagnostic colonoscopy today as well as the risks and the benefits of the procedure. I think we are fine to proceed as planned. History of Present Illness History of Present Illness Chief Complaint: Abdominal pain Narrative: Siena is 62 years old, and has a known history of diverticulosis and diverticulitis. He was hospitalized this year for another episode of diverticulitis, which was treated with antibiotics. She needs a colonoscopy to help rule out other forms of colitis, as well as to delineate the extent of her disease. Since her last hospital visit, she did have a visit to the emergency department complaining of left-sided abdominal pain. CT scan at that time did not support the diagnosis of active diverticulitis. Since then, she has been feeling well. She has no pain today. PFSH All Active Problems Abdominal pain (Acute) Hepatic cyst (Acute) Hydronephrosis of right kidney (Acute) Diverticulitis (Acute) Diverticulitis large intestine (Acute) Rectal fissure (Acute) Unintentional weight loss (Acute) Steatorrhea (Acute) Thrombosed hemorrhoids (Acute) Thrombosed hemorrhoids (Acute) Diverticulitis of large intestine with perforation (Acute) Left shoulder pain (Acute) Paresthesias (Acute) Vision loss of right eye (Acute) Injury of right thumb (Acute) Skier's thumb vs bony contusion Medical History Myalgia Muscle weakness Benign fasciculation-cramp syndrome Anxiety Urinary incontinence Peripheral neuropathy Seborrheic keratosis Labile hypertension History of IBS diarrhea prone Visual disturbance Surgical History H/O basal cell carcinoma excision Family History Father CAD (coronary artery disease) Hypertension Depression Cancer SMALL CELL LUNG CANCER Mother Hypertension Anxiety Breast cancer Brother Hypertension Depression Stroke HEMORRHAGIC STROKE AT AGE 51 Sister Hypertension Multiple polyps of sigmoid colon Sjogrens syndrome Sister Depression Paternal Aunt Diabetes Stroke Maternal Grandfather Stroke Maternal Grandmother Hypothyroidism Stroke Maternal Uncle Colon cancer Social History Smoking/Tobacco Use Status: Former Tobacco Use Quit Date: 04/02/74 Smoking risk assessment performed?: Yes Alcohol Intake: current Alcohol Intake frequency: a few times a month Alcohol type: wine Details: 1 DRINK PER DAY Drug use: Never Substance use type: does not use Housing: house Number of Children: 2 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 Current gender identity: female What is your relationship status?: Panel score (0-1 are the most socially isolated patients): 0 Do you feel safe at home: Yes Do you feel safe in your relationship?: Yes Meds Allergies and Home Medications Allergies Allergy/AdvReac Type Severity Reaction Status Date / Time Penicillins Allergy rash Verified 02/01/23 11:08 reported by her mother years ago amitriptyline AdvReac Intermediate SVT on 50 Verified 02/01/23 11:08 mg erythromycin base AdvReac Intermediate severe gi Verified 02/01/23 11:08 upset hydrochlorothiazide AdvReac Intermediate Dizziness/L Verified 02/01/23 11:08 ighthead Home Medications Medication Instructions Recorded Confirmed Type acetaminophen 500 mg tablet 1,000 mg PO PRN PRN 12/30/21 02/01/23 History psyllium husk 0.4 gram capsule 0.4 g PO DAILY 01/05/22 02/01/23 History (Metamucil) estradiol 0.01% (0.1 mg/gram) 0.25 appful vaginal .3 times a week 12/11/22 02/01/23 History vaginal cream amitriptyline 10 mg tablet 10 mg PO QHS PRN 12/13/22 02/01/23 History Lactobacillus rhamnosus GG 10 1 cap PO DAILY 01/27/23 02/01/23 History billion cell capsule (Culturelle) vit A 7,160 unit-vit C 113 mg-vit 1 tab PO DAILY 01/27/23 02/01/23 History E 100 giaq-ygdy-mxqaan tablet (EyeProtect) Exam Const General: cooperative, healthy appearing and not in acute distress Neck Neck: normal visual inspection, no lymphadenopathy and supple Thyroid: thyroid normal Resp Effort & Inspection: normal respiratory effort Auscultation: clear to auscultation bilaterally Cardio Jugular venous pressure: no JVD Rate: regular rate Rhythm: regular rhythm Heart Sounds: S1 normal and S2 normal Neuro General: patient alert, patient awake and patient oriented x3 Psych Appearance: grossly normal
--- NOTE | 2023-01-31 16:40 | W.PM.DSUDISC ---
Date of service: 02/01/23 Time of Service: 13:26 Discharge Plan Disposition Patient Disposition: Home Condition: Good Discharge Details Reason For Visit: Diagnostic colonoscopy Attending Provider: Simone Edward Primary Care Provider: Kaylin Walden Home Meds and New Rx's Prescriptions: Continued amitriptyline 10 mg tablet 10 mg PO QHS PRN Patient Comments: \ psyllium husk [Metamucil] 0.4 gram capsule 0.4 g PO DAILY Patient Comments: not taking Rx Instructions: pt reports she does not take any medications estradiol 0.01 % (0.1 mg/gram) cream 0.25 appful vaginal .3 times a week acetaminophen 500 mg Tablet 1,000 mg PO PRN PRN Patient Comments: not taking EyeProtect 7,160-113-100 sczd-ku-bsjs tablet 1 tab PO DAILY Culturelle 10 billion cell capsule 1 cap PO DAILY Discharge Instructions Additional Instructions: Siena, we were able to complete your colonoscopy today without any difficulty. Aside from your diverticulosis. Everything is normal. There are no signs of other diseases such as ulcerative colitis or Crohn's disease. I did not see any polyps or tumors in the extent of your diverticular disease is basically limited to about 15 cm or so. In that regard, it would be reasonable to consider elective sigmoid colon resection surgery as a means to cure your diverticulitis. For now, take a little bit of time to recover from the procedure, and if you would like to talk more about elective surgery I be more than happy to see you at any time. 1. If tolerated, consume a soft, low fiber diet for 1-2 days. [address] not drive, drink alcohol, operate machinery, make critical decisions, or do activities that require coordination or balance for 24 hours. 3. Because air was put into your colon during the procedure, expelling air from your rectum (passing gas or farting) is normal. 4. You may not have a bowel movement for 1-3 days because of the colonoscopy prep. This is normal. 5. Go directly to the emergency room if you notice any of the following: Develop chills (warm to touch), or if you have a thermometer and your temperature is above 101 Difficulty breathing or difficultly swallowing Persistent vomiting Severe abdominal pain, other than gas cramps Severe chest pain Black, tarry stools Any bleeding ? exceeding one tablespoon 6. Call your physician if the site where your intravenous was started becomes red, swollen, painful, and warm to touch. 7. Your physician has reviewed your pre-procedure medications. Please continue to take those medications as previously ordered. You will be given specific information/education regarding any changes to your medications before leaving. Activity:: Activity as Tolerated Diet:: As Tolerated Discharge Orders Discharge Orders: Discharge Order (Routine); Ordered 01/31/23 Ordered By: Simone Edward DS: Diagnosis Discharge Diagnosis (1) Abdominal pain: Status: Acute Asessment and Plan: Diverticulosis
--- NOTE | 2023-01-31 16:41 | W.COLOREPORT ---
Date of service: 02/01/23 Time of Service: 13:28 Colonoscopy Report Date of procedure: 02/01/23 Pre-op diagnosis general: Diverticulosis Post-op diagnosis procedure note: other (Diverticulosis) Procedure: Colonoscopy Surgeon: Simone Edward Anesthesia Type: General:No Airway Estimated blood loss (mL): 0 Pathology: none sent Complications: None Disposition: same day Indications: Siena is a 62-year-old woman with previous episodes of diverticulitis. She needs a colonoscopy to confirm diagnosis, and to map the extent of the disease. Prep: Miralax/Dulcolax Procedure Start Time: 12:57 Procedure End Time: 13:13 Retraction Time: 10 Findings: Sigmoid diverticulosis extending from about 16 cm past the anal verge to about 35 cm Procedure Description: After the induction of monitored anesthetic care, and with the patient in left lateral decubitus position, I began by performing an external anorectal exam.? Perineum and skin were normal, as was the anal verge.? There was no evidence of external hemorrhoids.? Next, I performed a digital rectal exam.? I did not appreciate any abnormal findings.? Next, I advanced a colonoscope into the rectal vault.? I performed retroflexion.? This was normal.? Using insufflation, I then advanced the colonoscope beyond the rectal folds and into the sigmoid colon before advancing towards the cecum.? Beginning around 8 cm from the anal verge within the sigmoid colon was an area of sigmoid diverticulosis. Diverticula were seen all throughout the sigmoid colon. They extend up to about 35 cm from the anal verge. Some more [place], others were small. The true lumen was easy to maintain. The scope was noted to be in the cecum by identification of the ileocecal valve and appendiceal orifice.? I then began withdrawing the colonoscope using repeated irrigation as necessary for full evaluation of the colonic mucosa. ?Once the scope was withdrawn to the level of the rectum, great care was taken to examine portions of the rectal folds.? Finally, the scope was withdrawn and the patient was brought to the same-day surgery recovery unit as the anesthetic wore off. ?I did not see any signs of tumors, polyps, or any other abnormalities aside from the diverticulosis. There were no signs of Crohn's disease, ulcerative colitis, or any other acute or chronic inflammatory diseases. The findings and instructions were shared with the patient prior to discharge. Fontanelle Bowel Prep Fontanelle Bowel Prep Right Colon: 3 Left Colon: 3 Transverse Colon: 3 Total Score: 9
[2023-02-01 11:09] VITALS: BP 108/77; PULSE 79; RESP 16; TEMP 36.5; O2SAT 100
[2023-02-01] MEDS: Lactated Ringers 1,000 ML 80 ML IV (11:44)
--- NOTE | 2023-02-01 12:06 | ANES.PREOP_ITS ---
General Info Date of Service Date Performed: 02/01/23 Height: 5 ft 5 in Weight: 53.07 kg Body Mass Index (BMI): 19.4 Surgical Procedure: Operation Date: 02/01/23 12:05 Proposed Procedure Side Surgeon rina Edward MD Meds Allergies and Home Medications Allergies Allergy/AdvReac Type Severity Reaction Status Date / Time Penicillins Allergy rash Verified 02/01/23 11:08 reported by her mother years ago amitriptyline AdvReac Intermediate SVT on 50 Verified 02/01/23 11:08 mg erythromycin base AdvReac Intermediate severe gi Verified 02/01/23 11:08 upset hydrochlorothiazide AdvReac Intermediate Dizziness/L Verified 02/01/23 11:08 ighthead Home Medication Medication Instructions Recorded acetaminophen 500 mg tablet 1,000 mg PO PRN PRN 12/30/21 psyllium husk 0.4 gram capsule 0.4 g PO DAILY 01/05/22 (Metamucil) estradiol 0.01% (0.1 mg/gram) 0.25 appful vaginal .3 times a week 12/11/22 vaginal cream amitriptyline 10 mg tablet 10 mg PO QHS PRN 12/13/22 Lactobacillus rhamnosus GG 10 1 cap PO DAILY 01/27/23 billion cell capsule (Culturelle) vit A 7,160 unit-vit C 113 mg-vit 1 tab PO DAILY 01/27/23 E 100 cgun-aciv-dnbpdj tablet (EyeProtect) Current Visit Medications: Current Medications Generic Name Dose Route Start Last Admin Trade Name Freq PRN Reason Stop Dose Admin Hyoscyamine Sulfate 0.125 mg 01/31/23 16:42 Hyoscyamine 0.125 Mg Sl/Oral/Chew SL 03/02/23 16:41 DIRECTED PRN Ringer's Solution 1,000 mls @ 80 mls/hr 02/01/23 06:00 02/01/23 11:44 IV 03/02/23 23:59 80 mls/hr INFUSION PRABHA Administration IV Miscellaneous Supplies 1 each 02/01/23 06:00 Iv Access IV 03/02/23 23:59 DIRECTED PRABHA Ondansetron HCl 4 mg 01/31/23 16:42 Ondansetron 4 Mg/2 Ml Vial IVP 03/02/23 16:41 Q4H PRN PRN Nausea / Vomiting Sodium Chloride 0 ml 11/02/23 06:00 Normal Saline Flush 10 Ml Syr IV 03/02/23 23:59 PRN PRN Sodium Chloride 0 ml 02/01/23 06:00 Normal Saline 10 Ml Vial IJ 03/02/23 23:59 DIRECTED PRN Sterile Water 0 ml 02/01/23 06:00 Water,Injection,Sterile 10 Ml Vial IJ 03/02/23 23:59 DIRECTED PRN PFSH Active Problems Active Problems: Problem Status Onset Code Abdominal pain R10.9 Hepatic cyst K76.89 Hydronephrosis of right kidney N13.30 Diverticulitis K57.92 Diverticulitis large intestine K57.32 Rectal fissure K60.2 Unintentional weight loss R63.4 Steatorrhea K90.9 Thrombosed hemorrhoids K64.5 Thrombosed hemorrhoids K64.5 Diverticulitis of large intestine with perforation K57.20 Left shoulder pain M25.512 Paresthesias R20.2 Vision loss of right eye H54.61 Injury of right thumb S69.91XA Medical History Medical History Myalgia Muscle weakness Benign fasciculation-cramp syndrome Anxiety Urinary incontinence Peripheral neuropathy Seborrheic keratosis Labile hypertension History of IBS diarrhea prone Visual disturbance Medical History Comments:: preop note: Per pt. states BP is stress related. Pt states she went to ER 01/28/23 for upper left abdominal pain. 02/01/23 Pt states it has resolved and she is no longer having any pain. Surgical History Surgical History H/O basal cell carcinoma excision Tobacco Smoking/Tobacco Use Status: Former Tobacco Use Alcohol Alcohol Intake: current Alcohol intake frequency: a few times a month Alcohol type: wine Details: 1 DRINK PER DAY Substance Use Substance use: Never Substance use type: does not use Vital Signs and Lab Results Vital Signs Most Recent Vital Signs in EMR: Most Recent Vital Signs Temp Pulse Resp BP Pulse Ox 36.5 C 79 16 108/77 100 02/01/23 11:09 02/01/23 11:09 02/01/23 11:09 02/01/23 11:09 02/01/23 11:09 Lab Results Blood Type / Crossmatch: No Data to Display Complete Blood Count: White Blood Count 7.79 10^3/uL (4.4-10.8) 01/27/23 13:32 Red Blood Count 4.52 10^6/uL (3.93-5.22) 01/27/23 13:32 Hemoglobin 14.0 g/dL (11.2-15.7) 01/27/23 13:32 Hematocrit 41.7 % (36.0-46.0) 01/27/23 13:32 Platelet Count 310 10^3/uL (130-400) 01/27/23 13:32 Complete Metabolic Panel: Sodium 139 mmol/L (136-145) 01/27/23 13:32 Potassium 3.8 mmol/L (3.5-5.1) 01/27/23 13:32 Chloride 103 mmol/L (98-107) 01/27/23 13:32 Carbon Dioxide 30.2 mmol/L (21.0-32.0) 01/27/23 13:32 BUN 14 mg/dL (7-18) 01/27/23 13:32 Creatinine 0.8 mg/dL (0.55-1.02) 01/27/23 13:32 Est GFR (CKD-EPI 2020) 82.23 (mL/min/1.73m2) 01/27/23 13:32 Calcium 9.5 mg/dL (8.5-10.1) 01/27/23 13:32 Albumin 4.3 g/dL (3.4-5.0) 01/27/23 13:32 Glucose 118 mg/dL (74-106) H 01/27/23 13:32 Liver Function Panel: Alanine Aminotransferase (ALT/SGPT) 40 U/L (14-59) 01/27/23 13: 32 Aspartate Amino Transf (AST/SGOT) 23 U/L (15-37) 01/27/23 13:32 Coagulation Panel: 2 No Data to Display Cardiac Panel: Troponin I < 50 ng/L (<or=60) 01/27/23 Arterial Blood Gas: No Data to Display Venous Blood Gas: No Data to Display Pancreas Panel: Lipase 50 U/L (16-77) 01/27/23 13:32 Thyroid Panel: No Data to Display Infectious Disease: No Data to Display Blood Cultures: No Data to Display Toxicology Panel: No Data to Display Anesthesia Assessment and Plan Anesthesia History Personal History: No History of Anesthesia Complications Family History: No Family History of Anesthesia Complications Exercise Tolerance Exercise Tolerance: Metabolic Equivalents>4 Pertinent Negatives Pertinent Negatives: No Symptoms of GERD, No Major Cardiovascular Symptoms or Complaints and No Major Pulmonary Symptoms or Complaints Cardiac & Pulmonary Exam Cardiac Exam: Normal S1/S2 Heart Sounds Pulmonary Exam: Clear Bilateral Breath Sounds Implantable Cardiac Device Does patient have a Pacemaker or an ICD?: No Airway Exam Known Difficult Airway: No Mallampati Class: 1 Mouth Opening: Normal (> 3cm) Thyromental Distance: Less than 3 cm Neck Range of Motion: Full ROM Neck Circumference: Normal Teeth Condition: Normal Dentition ASA Classification ASA Score: ASA 2 Emergency Case?: No NPO Status NPO Status: NPO Clears >2 hours, Solids >8 hours Anesthesia Plan Resuscitation Status: Full Code Anesthesia Technique: General Anesthesia Airway Planned: Natural Airway Monitors Used: Standard Monitors
[2023-02-01 12:07] VITALS: BMI 19.4
[2023-02-01 13:18] VITALS: BP 104/60; PULSE 73; RESP 18; TEMP 36.3; O2SAT 100
[2023-02-01 13:49] VITALS: BP 118/78; PULSE 74; RESP 18; TEMP 36.8; O2SAT 100
--- NOTE | 2023-02-01 13:54 | W.ANESPOSTOP ---
Postoperative Evaluation Date, Time and Location Date Performed: 02/01/23 Time Performed: 13:54 Patient Location: Day Surgery Unit Vital Signs Most Recent Imported Vital Signs: Most Recent Vital Signs Temp Pulse Resp BP Pulse Ox 36.3 C L 73 18 104/60 100 02/01/23 13:18 02/01/23 13:18 02/01/23 13:18 02/01/23 13:18 02/01/23 13:18 Pain Score Most Recent Pain Score: Most Recent Pain Score Pain Level 0 02/01/23 13:18 Assessment Mental Status: Awake (Alert & Oriented to Patient Baseline) Airway and Respiratory Function: Patent airway with normal (patient baseline) respiratory exam Cardiovascular Function: Hemodynamically Stable Hydration Status: Adequately Hydrated Nausea & Vomiting: No Nausea or Vomiting Pain: Pt. Denies Any Pain Peripheral Nerve Block: Patient did not receive a nerve block
== END 2023-02-01 16:42 | disposition home or self-care (01) ==
LOC: SUR 10:40
PROVIDERS: PCP Nurse Practitioner Adult Health; Visit Provider Surgery
PROC: 0DJD8ZZ Inspection of Lower Intestinal Tract, Via Natural or Artificial Opening Endoscopic (ICD-10-PCS; CPT 45378; principal; 2023-02-01 12:00)
DX: R10.9 Unspecified abdominal pain (principal); K57.30 Diverticulosis of large intestine without perforation or abscess without bleeding
CPT/HCPCS: 45378

== ENCOUNTER 2023-02-15 13:12 | Outpatient (CLI) | payer OTHER, SELFPAY ==
--- OUTSIDE RECORDS SUMMARY | 2023-02-15 13:14 | XMS_ITS | Continuity of Care Document ---
Author Name Unknown Organization [facility] Ambulatory Clin[facility] Address [address] [place] [address] Encounter [facility] NBR [id number] Date(s): 03/12/22 - 03/12/22 [facility] [address] [place], [place] [address] [place] Discharge Disposition: Home or Self Care Attending Physician: Kal Cook. DUANE
[2023-02-15 13:51] LABS: ESR 5 mm/hr (0-30)
[2023-02-15 14:38] LABS: Hemoglobin A1C 5.2 % (<5.7)
[2023-02-15 15:17] LABS: TSH (W/Ref FT4) 1.04 uIU/mL (0.36-3.74); Vitamin B12 519 pg/mL (193-986)
[2023-02-19 14:52] LABS: Albumin 60.2 % (55.8-66.1); Total Protein 6.7 g/dL (6.3-8.2)
== END 2023-02-15 13:13 | disposition home or self-care (01) ==
LOC: LBO 13:13
PROVIDERS: PCP Nurse Practitioner Adult Health; Visit Provider Psychiatry & Neurology Neurology
DX: R73.9 Hyperglycemia, unspecified; G62.9 Polyneuropathy, unspecified
CPT/HCPCS: 36415; 85652; 82607; 83036; 84165; 84443

== ENCOUNTER → 2023-03-12 01:03 | Outpatient (CLI) | payer OTHER, SELFPAY ==
--- NOTE | 2023-03-12 | ETT_ITS ---
APPROVED REPORT Exam: Exercise Treadmill Patient Location: Out-Patient Room/Bed: Stress Nurse: Vidal Braun RN Ordering Provider:CARL ORTEGA, Contact Number: [phone] BMI: 20.29 Baseline Rhythm: Sinus Rhythm Indications: Chest pain radiating to Left shoulder and scapula. Burning abdominal pain. Medical History Medical History: GERD, Diverticulitis. Cardiac Medications: None Allergies: PCN Cardiac Risk Factors: None Previous Cardiac Procedures: None Pretest Chest Pain Characteristics: None Exercise History: Physically active Physical Disabilities: None Lung Sounds: Clear Heart Sounds: Regular Stress Test Details Test: Exercise stress testing was performed using a Ronak protocol. Rest Stress HR Resting HR Supine: 71 bpm Max Heart Rate (APMHR): 156 bpm Resting HR Standin bpm Target HR (85% APMHR): 133 bpm Max HR Achieved: 146 bpm % of APMHR: 94 Recovery HR: 79 bpm HR response to stress: Normal HR response to stress BP Resting BP Supine: 152/90 mmHg Resting BP Standin/86 mmHg Max BP: 162/62 mmHg Recovery BP: 126/86 mmHg BP response to stress: Normal blood pressure response to stress. ECG Resting ECG: Sinus Rhythm Ectopy: None Stress ECG: Sinus Rhythm, Sinus Tachycardia ST Change: No significant ST segment changes noted Arrhythmia: Single PVC Recovery ECG: Sinus Rhythm Recovery Arrhythmia: None Clinical Reason for Termination: Target HR Achieved Stress Symptoms: None Exercise duration: 9 min47 sec Highest Stage Reached: 3 Exercise capacity: 11.86 METs Angina Score: None Gongora Treadmill Score: 8.8 Rate Pressure Product: 92000 Stress ECG Conclusion 1. The resting electrocardiogram was within normal limits 2. Patient exercised on the Ronak protocol and completed a workload of 11.86 METS 3. Normal heart rate and blood pressure response to exercise. The patient achieved 94% of predicted heart rate for age 4. There was no electrocardiographic evidence of myocardial ischemia 5. No significant dysrhythmias Gongora Treadmill Score is 8.8 which is Low risk. Stress Test Summary STAGE Time (mins) Speed (mph) Grade (%) HR BP SpO2 SYMPTOMS METS Supine 71 152/90 98 Standing 78 138/86 1 3 1.7 10 99 150/72 96 4.5 2 6 2.5 12 111 158/72 98 7 3 9 3.4 14 133 97 10 1 min recovery 121 162/62 97 3 min recovery 87 158/86 6 min recovery 79 126/86
== END ==
PROVIDERS: PCP Nurse Practitioner Adult Health; Visit Provider Nurse Practitioner Adult Health
DX: R07.89 Other chest pain (principal); R10.84 Generalized abdominal pain
CPT/HCPCS: 93017

== ENCOUNTER 2023-03-29 06:15 | Day surgery (SDC) | payer OTHER, SELFPAY ==
--- NOTE | 2023-03-28 19:41 | W.PM.DSUDISC ---
Date of service: 03/29/23 Time of Service: 07:52 Discharge Plan Disposition Patient Disposition: Home Condition: Good Discharge Details Reason For Visit: EGD Attending Provider: Simone Edward Primary Care Provider: Kaylin Walden Home Meds and New Rx's Prescriptions: Continued estradiol 0.01 % (0.1 mg/gram) cream 0.25 appful vaginal .3 times a week amitriptyline 25 mg tablet 25 mg PO QHS sennosides [senna] 8.6 mg tablet 8.6 mg PO DAILY pantoprazole 20 mg tablet,delayed release (DR/EC) 20 mg PO DAILY cholecalciferol (vitamin D3) 25 mcg (1,000 unit) capsule 25 mcg PO DAILY mecobalamin (vitamin B12) 1,000 mcg tablet,chewable 1,000 mcg PO DAILY EyeProtect 7,160-113-100 ypar-re-nleg tablet 1 tab PO DAILY sucralfate [Carafate] 1 gram tablet 1 g PO TID Discharge Instructions Additional Instructions: Siena, your upper endoscopy went just fine. I really did not see anything out of the ordinary. Your esophagus looks totally normal, all the way down through the connection to the stomach, which is called the GE junction. I do not see any signs of significant chronic reflux here. Your stomach also looked very good. I did not see any active signs of inflammation or irritation. I did notice a little bit that your pylorus (which is the muscle that separates your stomach from your small intestine, or duodenum) was relatively open and easy to pass through. It could be the case that you have been refluxing some bile from your small intestine up into your stomach, which can result in inflammation and irritation, as well as some of the symptoms that you have been describing. Generally speaking, sucralfate does tend to be the best medication for this. I wonder if the meds that you have been on thus far have been helping, and tamping down any inflammation that I would otherwise see during the EGD. For now, I would continue with the current regimen and we can see how you feel over the next few months. If your symptoms are relatively well-controlled, then you could probably back down on the pantoprazole, and perhaps switch back to an H2 josh such as Pepcid. Given the nature of your pylorus, I would guess that you get more benefit from the sucralfate that you do from the Protonix. Regardless, I did do some biopsies like we talked about, and I will certainly be on the look out to see if there is anything out of the ordinary there. Once I have those results I will be in touch. 1. If tolerated, consume a soft, low fiber diet for 1-2 days. [address] Do not drive, drink alcohol, operate machinery, make critical decisions, or do activities that require coordination or balance for 24 hours. 3. You may experience a sore throat for 24 to 48 hours. You may use throat lozenges or gargle with warm salt water to relieve the discomfort. 4. Because air was put into your stomach during the procedure, you may experience some belching. 5. Go directly to the emergency room if you notice any of the following: Develop chills (warm to touch), or if you have a thermometer and your temperature is above 101 Difficulty breathing or difficultly swallowing Persistent vomiting Severe abdominal pain, other than gas cramps Severe chest pain Black, tarry stools Any bleeding ? exceeding one tablespoon 6. Call your physician if the site where your intravenous was started becomes red, swollen, painful, and warm to touch. 7. Your physician has reviewed your pre-procedure medications. Please continue to take those medications as previously ordered. You will be given specific information/education regarding any changes to your medications before leaving. Stand Alone Forms: Anesthesia Discharge InstMahsa Luna (DSU) Activity:: Activity as Tolerated Diet:: As Tolerated Discharge Orders Discharge Orders: Discharge Order (Routine); Ordered 03/28/23 Ordered By: Simone Edward DS: Diagnosis Discharge Diagnosis (1) GERD (gastroesophageal reflux disease): Status: Chronic Asessment and Plan: Follow-up on biopsy results
--- NOTE | 2023-03-28 19:43 | ENDO_ITS ---
Date of service: 03/29/23 Time of Service: 07:57 Endoscopy Report DATE OF PROCEDURE: 03/29/23 PRE-OP DIAGNOSIS: GERD POST-OP DIAGNOSIS: other (Normal-appearing EGD) PROCEDURE: EGD with biopsies SURGEON: Simone Edward ANESTHESIA TYPE: General:No Airway ESTIMATED BLOOD LOSS: 5 PATHOLOGY: other (Random biopsies of gastric antrum and body) COMPLICATIONS: None DISPOSITION: same day INDICATIONS: Siena is a 62 year old woman with longstanding refractory GERD. She needs an EGD for surveillance of Barretts esophagus PROCEDURE START TIME: 07:40 PROCEDURE END TIME: 07:45 FINDINGS: Normal-appearing esophagus, GE junction, stomach, and duodenum. Slightly patulous pylorus PROCEDURE DESCRIPTION: After the initiation of anesthetic care, and with the assistance of a bite block, I advanced a standard gastroscope through the mouth past the hypopharynx and into the esophagus.? Under the direct vision of the scope, I advanced down the esophagus into the stomach.? The GE junction and Z-line were normal- appearing at 38 cm from the incisors. There was no irregularity. I entered the stomach, and insufflated until the gastric rugae were obliterated. Grossly it appeared normal. I performed retroflexion. I saw no evidence of any hiatal hernia. I turned back forward, and the stomach body, and antrum appeared normal. I did not see any signs of active inflammation. The pylorus was open, and slightly patulous. There was no obvious spontaneous reflux of bile. I was able to navigate through the pylorus without any difficulty. The duodenum was normal-appearing, and slightly bile tinged. I advanced down to the third portion of the duodenum. All of this was normal with no evidence of duodenitis. I then emptied the duodenum, and went back to the stomach. Again, complete examination was performed and I saw no evidence of any active peptic ulcer disease. I did perform random biopsies of the gastric antrum and body using cold forceps in an effort to help eliminate Helicobacter pylori as a source of her symptoms. There was minimal bleeding. The stomach was then desufflated, and the camera was brought back along the length of the esophagus for 1 last examination. Again, everything looked normal.
[2023-03-29 06:23] VITALS: BP 150/88; PULSE 66; RESP 15; TEMP 36.5; O2SAT 99
[2023-03-29] MEDS: Lactated Ringers 1,000 ML 80 ML IV (06:45)
--- NOTE | 2023-03-29 07:00 | W.ANESPRE ---
General Info Date of Service Date Performed: 03/29/23 Height: 5 ft 5 in Weight: 56.7 kg Body Mass Index (BMI): 20.7 Surgical Procedure: Operation Date: 03/29/23 07:35 Proposed Procedure Side Surgeon p Gastroscopy Simone Edward MD Meds Allergies and Home Medications Allergies Allergy/AdvReac Type Severity Reaction Status Date / Time Penicillins Allergy rash Verified 03/29/23 06:27 reported by her mother years ago amitriptyline AdvReac Intermediate SVT on 50 Verified 03/29/23 06:27 mg erythromycin base AdvReac Intermediate severe gi Verified 03/29/23 06:27 upset hydrochlorothiazide AdvReac Intermediate Dizziness/L Verified 03/29/23 06:27 ighthead Home Medication Medication Instructions Recorded estradiol 0.01% (0.1 mg/gram) 0.25 appful vaginal .3 times a week 12/11/22 vaginal cream vit A 7,160 unit-vit C 113 mg-vit 1 tab PO DAILY 01/27/23 E 100 [id number] tablet (EyeProtect) amitriptyline 25 mg tablet 25 mg PO QHS 03/21/23 cholecalciferol (vitamin D3) 25 25 mcg PO DAILY 03/21/23 mcg (1,000 unit) capsule mecobalamin (vitamin B12) 1,000 1,000 mcg PO DAILY 03/21/23 mcg chewable tablet pantoprazole 20 mg tablet,delayed 20 mg PO DAILY 03/21/23 release sennosides 8.6 mg tablet (senna) 8.6 mg PO DAILY 03/21/23 sucralfate 1 gram tablet (Carafate) 1 g PO TID 03/28/23 Current Visit Medications: Current Medications Generic Name Dose Route Start Last Admin Trade Name Freq PRN Reason Stop Dose Admin Hyoscyamine Sulfate 0.125 mg 03/28/23 19:45 Hyoscyamine 0.125 Mg Sl/Oral/Chew SL 04/27/23 19:44 DIRECTED PRN Ringer's Solution 1,000 mls @ 80 mls/hr 03/29/23 06:00 03/29/23 06:45 IV 04/01/23 23:59 80 mls/hr INFUSION PRABHA Administration IV Miscellaneous Supplies 1 each 03/29/23 06:00 Iv Access IV 04/01/23 23:59 DIRECTED PRABHA Ondansetron HCl 4 mg 03/28/23 19:45 Ondansetron 4 Mg/2 Ml Vial IVP 04/27/23 19:44 Q4H PRN PRN Nausea / Vomiting Sodium Chloride 0 ml 03/29/23 06:00 Normal Saline Flush 10 Ml Syr IV 04/01/23 23:59 PRN PRN Sodium Chloride 0 ml 03/29/23 06:00 Normal Saline 10 Ml Vial IJ 04/01/23 23:59 DIRECTED PRN Sterile Water 0 ml 03/29/23 06:00 Water,Injection,Sterile 10 Ml Vial IJ 04/01/23 23:59 DIRECTED PRN PFSH Active Problems Active Problems: Problem Status Onset Code GERD (gastroesophageal reflux disease) K21.9 Hepatic cyst K76.89 Hydronephrosis of right kidney N13.30 Diverticulitis K57.92 Diverticulitis large intestine K57.32 Rectal fissure K60.2 Unintentional weight loss R63.4 Steatorrhea K90.9 Thrombosed hemorrhoids K64.5 Thrombosed hemorrhoids K64.5 Diverticulitis of large intestine with perforation K57.20 Left shoulder pain M25.512 Paresthesias R20.2 Vision loss of right eye H54.61 Injury of right thumb S69.91XA Medical History Medical History Myalgia Muscle weakness Benign fasciculation-cramp syndrome Anxiety Urinary incontinence Peripheral neuropathy Seborrheic keratosis Labile hypertension History of IBS diarrhea prone Visual disturbance Medical History Comments:: preop note: Per pt. states BP is stress related. Pt states she went to ER 01/28/23 for upper left abdominal pain. 02/01/23 Pt states it has resolved and she is no longer having any pain. Surgical History Surgical History H/O colonoscopy H/O basal cell carcinoma excision Tobacco Smoking/Tobacco Use Status: Former Tobacco Use Alcohol Alcohol Intake: current Alcohol intake frequency: a few times a month Alcohol type: wine Details: 1 DRINK PER DAY Substance Use Substance use: Never Substance use type: does not use Details: alcohol: t-1, 2 ounces wine Vital Signs and Lab Results Vital Signs Most Recent Vital Signs in EMR: Most Recent Vital Signs Temp Pulse Resp BP Pulse Ox 36.5 C 66 15 150/88 H 99 03/29/23 06:23 03/29/23 06:23 03/29/23 06:23 03/29/23 06:23 03/29/23 06:23 Lab Results Blood Type / Crossmatch: No Data to Display Complete Blood Count: No Data to Display Complete Metabolic Panel: No Data to Display Liver Function Panel: No Data to Display Coagulation Panel: No Data to Display Cardiac Panel: No Data to Display Arterial Blood Gas: No Data to Display Venous Blood Gas: No Data to Display Pancreas Panel: No Data to Display Thyroid Panel: No Data to Display Infectious Disease: No Data to Display Blood Cultures: No Data to Display Toxicology Panel: No Data to Display Imaging and Studies Imaging and Studies Study information below may be from another EMR and interpreted by another provider. Please see original notes in EMR for more complete details. EKG Summary: 01/27/2023: Exam: Resting ECG Reason for Exam: epigatric pain Patient Location: E HR:74 bpm ECG Measurements Heart Rate 74 AXIS MS 142 P 77 QRSd 94 QRS 55 QT 390 T40 QTc 434 Conclusion sinus rate 74 normal axis no acute ischemic change There are no significant changes compared to prior EKG performed on 12/06/2022 at 19:56. I have reviewed and I agree with the emergency room physician's ECG interpretation. Stress Test Summary: 03/12/23: Clinical Reason for Termination: Target HR Achieved Stress Symptoms: None Exercise duration: 9 min47 sec Highest Stage Reached: 3 Exercise capacity: 11.86 METs Angina Score: None Gongora Treadmill Score: 8.8 Rate Pressure Product: 21334 Stress ECG Conclusion 1. The resting electrocardiogram was within normal limits 2. Patient exercised on the Ronak protocol and completed a workload of 11.86 METS 3. Normal heart rate and blood pressure response to exercise. The patient achieved 94% of predicted heart rate for age 4. There was no electrocardiographic evidence of myocardial ischemia 5. No significant dysrhythmias Gongora Treadmill Score is 8.8 which is Low risk. Anesthesia Assessment and Plan Anesthesia History Personal History: No History of Anesthesia Complications Family History: No Family History of Anesthesia Complications Exercise Tolerance Exercise Tolerance: Metabolic Equivalents>4 Cardiac & Pulmonary Exam Cardiac Exam: Normal S1/S2 Heart Sounds Pulmonary Exam: Clear Bilateral Breath Sounds Implantable Cardiac Device Does patient have a Pacemaker or an ICD?: No Airway Exam Known Difficult Airway: No Mallampati Class: 1 Mouth Opening: Normal (> 3cm) Thyromental Distance: Less than 3 cm Neck Range of Motion: Full ROM Neck Circumference: Normal Teeth Condition: Normal Dentition ASA Classification ASA Score: ASA 2 Emergency Case?: No NPO Status NPO Status: NPO Clears >2 hours, Solids >8 hours Anesthesia Plan Resuscitation Status: Full Code Anesthesia Technique: General Anesthesia Airway Planned: Natural Airway Monitors Used: Standard Monitors
[2023-03-29 07:01] VITALS: BMI 20.7
--- NOTE | 2023-03-29 07:43 | STOM_PTH ---
PATIENT: Siena Delarosa LOC: [facility] U#:[id number] AGE/SX: 62/F ROOM: RE03/29/[address]: Simone Edward MD : 1960 BED: DIS: 03/29/2023 SPEC #: [id number] RECD: 03/29/23 12:48 STATUS: JANAE RE #: [id number] TRENA: 03/29/23 07:[address]: Simone Edward DEPT: Surgical Specimen RECD BY: Winter Trejo ENTERED: 03/29/23 12:49 SP TYPE: STOMACH OTHR DR: Kaylin Wladen Tissues: 1 - STOMACH BIOPSY 2 - STOMACH BIOPSY Procedures: GROSS AND MICRO LEVEL 4 IMMUNOPEROXIDASE STAIN Comments: [id number]
[2023-03-29 07:52] VITALS: BP 115/72; PULSE 81; RESP 16; TEMP 36.5; O2SAT 99
--- NOTE | 2023-03-29 08:00 | W.ANESPOSTOP ---
Postoperative Evaluation Date, Time and Location Date Performed: 03/29/23 Time Performed: 08:00 Patient Location: Day Surgery Unit Vital Signs Most Recent Imported Vital Signs: Most Recent Vital Signs Temp Pulse Resp BP Pulse Ox 36.5 C 81 16 115/72 99 03/29/23 07:52 03/29/23 07:52 03/29/23 07:52 03/29/23 07:52 03/29/23 07:52 Pain Score Most Recent Pain Score: Most Recent Pain Score Pain Level 0 03/29/23 07:52 Assessment Mental Status: Awake (Alert & Oriented to Patient Baseline) Airway and Respiratory Function: Patent airway with normal (patient baseline) respiratory exam Cardiovascular Function: Hemodynamically Stable Hydration Status: Adequately Hydrated Nausea & Vomiting: No Nausea or Vomiting Pain: Pt. Denies Any Pain Peripheral Nerve Block: Patient did not receive a nerve block
[2023-03-29 08:17] VITALS: BP 105/68; PULSE 71; RESP 16; TEMP 36.6; O2SAT 99
== END 2023-03-29 08:45 | disposition home or self-care (01) ==
LOC: SUR 06:16
PROVIDERS: PCP Nurse Practitioner Adult Health; Visit Provider Surgery
PROC: 0DJ68ZZ Inspection of Stomach, Via Natural or Artificial Opening Endoscopic (ICD-10-PCS; CPT 43235; principal; 2023-03-29 07:30)
DX: K21.9 Gastro-esophageal reflux disease without esophagitis (principal); K31.89 Other diseases of stomach and duodenum
CPT/HCPCS: 43239; 88305; 88361; J2001; J2704

== ENCOUNTER 2023-11-22 17:13 | Inpatient (IN) | payer MEDICAID, SELFPAY ==
[2023-11-22] VITALS (15 sets, daily range): BP systolic 148–152; BP diastolic 76–83; PULSE 63–89; RESP 13–17; TEMP 36.1; O2SAT 94–100
--- NOTE | 2023-11-22 18:00 | DI.CT_ITS ---
Exam(s) CT ABDOMEN PELVIS W EXAM: CT ABDOMEN PELVIS W CLINICAL HISTORY: LLQ pain, worsened with lifting leg.. TECHNIQUE: Imaging Protocol: Axial computed tomography images with coronal and sagittal reformatted images were created and reviewed CONTRAST MATERIAL: Intravenous: Omnipaque 350 Contrast volume:100 ml Oral: / no COMPARISON: CT CT ABDOMEN PELVIS W from 01/27/2023 FINDINGS: ABDOMEN and PELVIS: Lung Bases: No acute findings. Liver: Normal density. No suspicious mass. Gallbladder and biliary tract: No radiodense calculus. No biliary dilation. Pancreas: Normal density. No abnormal calcifications or inflammatory process. No evidence of mass. Spleen: Normal. Kidneys: Normal size, contour and axis. No radiodense stones. No obstructive uropathy. No suspicious masses seen. Adrenal glands: No masses seen. Vasculature: Abdominal aorta non-dilated. Soft tissues: Unremarkable. Bladder: No gross wall thickening. No calculi.No focal mass. Bowel: No obstruction. Diverticulosis. Severe inflammation at the proximal descending colon with ma rked wall thickening and surrounding stranding. No perforation. Some fluid but no discrete abscess. Appendix normal. Peritoneal cavity: No ascites. No focal collection. No mesenteric inflammatory response. Bones: Unremarkable for age. Reproductive organs: Unremarkable. Lymph nodes: No pathologically enlarged lymph nodes. IMPRESSION:: Severe diverticulitis involving the proximal descending colon. Surrounding fluid but n o discrete abscess or perforation. RADIATION DOSE DELIVERED: Total DLP DATA REPOSITORY: All CT scans at this facility are submitted to the National Radiology Data Registry (NRDR) Dose Index Registry (DIR) with the [employer] (ACR). RADIATION OPTIMIZATION: All CT scans at this facility use at least one of these dose optimization te chniques: automated exposure control; mA and/or kV adjustment per patient size (includes targeted exa ms where dose is matched to clinical indication); or iterative reconstruction.
--- NOTE | 2023-11-22 18:10 | ED.GENADUL_ITS ---
Discharge Plan Disposition Patient Disposition: Home Discharge Details Clinical Impression: Diverticulitis of intestine with abscess Primary Care Provider: Kaylin Walden ED Provider: Jazmine Peralta Home Meds and New Rx's Prescriptions: No Action estradiol 0.01 % (0.1 mg/gram) cream 0.25 appful vaginal .3 times a week amitriptyline 25 mg tablet 25 mg PO QHS cholecalciferol (vitamin D3) 25 mcg (1,000 unit) capsule 25 mcg PO DAILY mecobalamin (vitamin B12) 1,000 mcg tablet,chewable 1,000 mcg PO DAILY estradiol 0.01 % (0.1 mg/gram) cream 1 appful vaginal DAILY Rx Instructions: for 14 days cyanocobalamin (vitamin B-12) 1,000 mcg capsule 1,000 mcg PO DAILY ciprofloxacin HCl 500 mg tablet 500 mg PO PRN HPI General Date/Time Provider Initiated Documentation: 11/22/23 17:16 . HPI Narrative: Siena is a 62-year-old female who presents to the emergency department today for evaluation of left lower quadrant pain. She reports that symptoms started 2 days ago with chills, fatigue, body aches, nausea, and low appetite. She has been following a clear liquid diet for the past 2 days and attempt to treat the diverticulitis. She felt a bit better yesterday, but strained to have a bowel movement. Today she has had increasing pain to the left lower quadrant, including pain when lifting her left leg, especially with active range of motion. She also has significant pain with being jostled in the car. No his tory of abdominal surgeries. She does have history of diverticulitis x 4, once with a microperforation. No other significant chronic medical conditions. Physical exam remarkable for tenderness to palpation of left lower quadrant. Abdomen is soft, nondistended, normoactive bowel sounds. No rigidity or guarding. No obvious ecchymosis. Easy work of breathing, lung sounds clear bilaterally. Normal heart sounds. Moist mucous membranes. DDx includes but is not limited to: Diverticulitis, partial bowel obstruction, ovarian cyst, UTI less likely, appendicitis, nephrolithiasis. No red flags concerning for sepsis at this time based on reassuring vital signs. I independently interpreted the following tests: CBC notable for leukocytosis, white cell count 15.53. CMP reassuring. UA notable for concentrated urine, specific gravity 1030. Blood cultures ordered, pending. CT abdomen/pelvis performed, significant for mid descending colon posterior diverticulitis with prominent inflammation and concern for early abscess were formed in this inflammatory change measuring 3.7 x 2.5 cm posterior to:, Consistent with left psoas muscle discomfort on exam. 2114: Discussed case with Dr. Kamara, general surgery. Patient to be admitted for diverticulitis with probable early abscess. She does recommend Zosyn with premedication with Benadryl, as patient has a remote history of reported rash due to penicillins. She is able to tolerate Keflex without difficulty. Discussed plan of care with patient, who is agreeable with plan to use Zosyn under cardiac monitoring. She will board overnight in the emergency department until bed is available upstairs in the morning. 0: Zosyn administered after premedication with Benadryl. Siena is feeling well, no reaction noted, vital signs stable on monitor. Related Data Home Medications ?Medication ?Instructions ?Recorded ?Confirmed estradiol 0.01% (0.1 mg/gram) 0.25 appful vaginal .3 times a week 12/11/22 11/22/23 vaginal cream amitriptyline 25 mg tablet 25 mg PO QHS 03/21/23 11/22/23 cholecalciferol (vitamin D3) 25 25 mcg PO DAILY 03/21/23 11/22/23 mcg (1,000 unit) capsule mecobalamin (vitamin B12) 1,000 1,000 mcg PO DAILY 03/21/23 11/22/23 mcg chewable tablet ciprofloxacin HCl 500 mg tablet 500 mg PO PRN 11/15/23 11/22/23 cyanocobalamin (vitamin B-12) 1,000 mcg PO DAILY 11/15/23 11/22/23 1,000 mcg capsule estradiol 0.01% (0.1 mg/gram) 1 appful vaginal DAILY 11/15/23 11/22/23 vaginal cream Allergies Allergy/AdvReac Type Severity Reaction Status Date / Time Penicillins Allergy rash Verified 11/22/23 17:19 reported by her mother years ago amitriptyline AdvReac Intermediate SVT on 50 Verified 11/22/23 17:19 mg erythromycin base AdvReac Intermediate severe gi Verified 11/22/23 17:19 upset hydrochlorothiazide AdvReac Intermediate Dizziness/L Verified 11/22/23 17:19 ighthead General Stated Complaint: Abd Prob JEFF: 3 Review of Systems Narrative: see HPI Exam Const General: cooperative, comfortable and no acute distress Nutritional Appearance: average body habitus Resp Effort & Inspection: normal respiratory effort and able to speak in complete sentences Auscultation: clear to auscultation bilaterally Cardio Rate: regular rate Rhythm: regular rhythm GI Inspection: normal to inspection and non-distended Palpation: soft, not firm, no guarding, not rigid and tender in the LLQ Auscultation: normal bowel sounds Skin General skin exam: no rashes or lesions noted Course Vital Signs Vital signs: Vital Signs Temperature 36.1 C L 11/22/23 17:15 Pulse 89 11/22/23 17:15 Respiratory Rate 16 11/22/23 17:15 Blood Pressure 152/83 H 11/22/23 17:15 Pulse Oximetry 98 11/22/23 17:15 Temperature 36.1 C L 11/22/23 17:15 Temperature Source Oral 11/22/23 17:15 Pulse 89 11/22/23 17:15 Respiratory Rate 16 11/22/23 17:15 Respiratory Effort Normal 11/22/23 17:20 Blood Pressure 152/83 H 11/22/23 17:15 Blood Pressure Position Sitting 11/22/23 17:15 Pulse Oximetry 98 11/22/23 17:15 Oxygen Delivery Method Room Air 11/22/23 17:15 Oxygen Flow Rate 0 11/22/23 17:15 Pain Level 8 11/22/23 17:15 Medical Decision Making Imaging Data Radiologic Study: Radiologist's impression: Exam: CT Abdomen And Pelvis With Contrast Exam date and time: 11/22/2023 7:50 PM Age: 62 years old Clinical indication: Abdominal pain; Additional info: Llq pain x 2 days , worsened with lifting leg. IMPRESSION: 1. Mid descending colon posterior diverticulitis with prominent inflammation. Region suggesting early abscess or phlegmonous inflammatory change measuring 3.7 x 2.5 cm posterior to the colon. This focus does have continuity with the left psoas muscle and could be a cause of pain with leg raise maneuver. 2. Minor nonspecific free fluid in the pelvic cul-de-sac. 3. Benign-appearing ri ght renal cyst. 4. Fatty liver. Quality:SDOH Health Related Social Needs: No Data to Display PFSH All Active Problems (Updated 11/22/23 @ 21:27 by Jazmine Cobian) Diverticulitis of intestine with abscess (Acute) Family history of malignant neoplasm of breast (Acute) IBS (irritable bowel syndrome) (Chronic) Reflux gastritis (Acute) Left-sided chest pain (Acute) Gross hematuria (Acute) UTI (urinary tract infection) (Acute) GERD (gastroesophageal reflux disease) (Chronic) Hepatic cyst (Acute) Hydronephrosis of right kidney (Acute) Diverticulitis (Acute) Diverticulitis large intestine (Acute) Rectal fissure (Acute) Unintentional weight loss (Acute) Steatorrhea (Acute) Thrombosed hemorrhoids (Acute) Thrombosed hemorrhoids (Acute) Diverticulitis of large intestine with perforation (Acute) Left shoulder pain (Acute) Paresthesias (Acute) Vision loss of right eye (Acute) Injury of right thumb (Acute) Skier's thumb vs bony contusion Medical History (Updated 11/22/23 @ 21:27 by Jazmine Cobian) Myalgia Muscle weakness Benign fasciculation-cramp syndrome Anxiety Urinary incontinence Peripheral neuropathy Seborrheic keratosis Labile hypertension History of IBS diarrhea prone Visual disturbance Surgical History (Updated 03/30/23 @ 13:44 by Erica Ross) History of esophagogastroduodenoscopy (~03/2023) path sent H/O colonoscopy H/O basal cell carcinoma excision Family History Father CAD (coronary artery disease) Hypertension Depression Cancer SMALL CELL LUNG CANCER Mother Hypertension Anxiety Breast cancer Brother Hypertension Depression Stroke HEMORRHAGIC STROKE AT AGE 51 Sister Hypertension Multiple polyps of sigmoid colon Sjogrens syndrome Sister Depression Paternal Aunt Diabetes Stroke Maternal Grandfather Stroke Maternal Grandmother Hypothyroidism Stroke Maternal Uncle Colon cancer Social History Smoking/Tobacco Use Status: Former Tobacco Use Quit Date: 04/02/74 Smoking risk assessment performed?: Yes Alcohol Intake: current Alcohol Intake frequency: a few times a month Alcohol type: wine Details: 1 DRINK PER DAY Drug use: Never Substance use type: does not use Details: alcohol: t-1, 2 ounces wine Housing: house Number of Children: 2 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
[2023-11-22 18:35] LABS: Bilirubin Small (Negative); Blood Small (Negative); Clarity Clear (Clear); Glucose Negative (Negative); Ketones 40 mg/dL (Negative); Leukocyte Esterase Negative (Negative); Nitrite Negative (Negative); Specific Gravity >= 1.030 (1.005-1.025); Urobilinogen 0.2 mg/dL (Up to 0.2); pH 5.5 (5-8)
[2023-11-22 18:43] LABS: Bacteria Rare HPF (Negative); C & S Indicated? No; Casts Negative LPF (Negative); Crystals Negative HPF (Negative); Epithelial Cells Few HPF (Negative); Mucus Trace (Negative); WBC 0-2 HPF (0-5)
[2023-11-22 19:23] LABS: Abs Immature Grans 0.05 10^3/uL (0.0-0.06); Absolute Basophil Count 0.03 10^3/uL (0.0-0.2); Absolute Lymphocyte Count 1.69 10^3/uL (1.2-3.4); Absolute Neutrophil Count 12.56 10^3/uL (1.2-6.7); Basophils % 0.2 %; HCT 40.5 % (36.0-46.0); HGB 13.3 g/dL (11.2-15.7); Immature Grans % 0.3 %; Lymphocytes % 10.9 %; MCH 31.1 pg (27.0-33.0); MCHC 32.8 % (32.0-36.0); MCV 95 fL (80-95); MPV 9.2 fL (8.0-11.0); Monocytes % 7.7 %; Neutrophils % 80.9 %; Platelet Count 249 10^3/uL (130-400); RBC 4.28 10^6/uL (3.93-5.22); RDW-SD 45.3 fL; WBC 15.53 10^3/uL (4.4-10.8)
[2023-11-22] MEDS: Ketorolac 15 MG/ML VIAL IVP (19:24)
[2023-11-22] MEDS: Normal Saline 1,000 ML 1000 ML IV (19:24)
[2023-11-22 19:32] LABS: Bilirubin, Direct 0.2 mg/dL (0.0-0.2); Magnesium 2.1 mg/dL (1.8-2.4)
[2023-11-22 19:35] LABS: ALT 26 U/L (14-59); AST 19 U/L (15-37); Albumin 3.6 g/dL (3.4-5.0); Alkaline Phosphatase 72 U/L (46-116); Anion Gap 9.3 mmol/L (3-11); BUN 15 mg/dL (7-18); Bilirubin, Total 0.72 mg/dL (0.2-1.0); CO2 27.7 mmol/L (21.0-32.0); CREATININE 0.9 mg/dL (0.55-1.02); Calcium 9.3 mg/dL (8.5-10.1); Chloride 101 mmol/L (98-107); Estimated GFR 71.39 (mL/min/1.73m2); Glucose 97 mg/dL (74-106); Potassium 3.6 mmol/L (3.5-5.1); Sodium 138 mmol/L (136-145); Total Protein 7.7 g/dL (6.4-8.2)
[2023-11-22] MEDS: Normal Saline - Diluent 50 ML VIAL IJ (19:52)
[2023-11-22] MEDS: Omnipaque 350 MG/ML 100 ML BTL IJ (19:53)
[2023-11-22] MEDS: Normal Saline Flush 10 ML SYR IVP (20:38)
--- NOTE | 2023-11-22 20:56 | DI.VRAD_ITS ---
PROCEDURE INFORMATION: Exam: CT Abdomen And Pelvis With Contrast Exam date and time: 11/22/2023 7:50 PM Age: 62 years old Clinical indication: Abdominal pain; Additional info: Llq pain x 2 days , worsened with lifting leg. TECHNIQUE: Imaging protocol: Computed tomography of the abdomen and pelvis with contrast. Contrast material: OMNI 350; Contrast volume: 100 ml; Contrast route: INTRAVENOUS (IV); COMPARISON: CT ABDOMEN PELVIS W 01/27/2023 2:39 PM FINDINGS: Lungs: Lung bases are clear. Pleural spaces: No pleural effusion. Heart: Normal heart size. No pericardial effusion. No coronary artery atherosclerotic calcium is visible. Liver: The liver is normal in size, contour and attenuation. Gallbladder and biliary ducts: The gallbladder is normal in size and shape. No stones or inflammatory changes. Pancreas: The pancreas is normal in contour and attenuation. Spleen: The spleen is normal in size, contour and attenuation. Adrenal glands: The adrenal glands are normal in size and contour bilaterally. Kidneys and ureters: The kidneys bilaterally are unremarkable. Normal attenutation. No hydronephrosis. No calculi. Subcentimeter right renal cysts.No further imaging follow up of the renal cyst is recommended based on MIPS criteria. A subcentimeter medial left renal parenchymal cyst is also noted. Stomach and bowel: Gastric morphology is unremarkable. No edema. No gastric outlet obstruction.Small bowel loops are normal in course and caliber. There is no mucosal edema or bowel wall thickening. No obstructive features. Large bowel remarkable for a mid left colon prominent posterior focus of diverticulitis. There is severe inflammation. See series 9: Image 37. This is closely approximated to the psoas muscle and may be a cause for pain associated with leg raise maneuver. Possibility of a developing early abscess posterior to the descending colon on series 9: Image 38. 3.7 x 2.5 cm area of phlegmonous inflammation or possibly early abscess. Appendix: Non inflamed appendix on series 9: Images 57 through 53. Intraperitoneal space: Minor free fluid in the pelvic cul-de-sac is nonspecific. Vasculature: Unremarkable. No abdominal aortic aneurysm. Lymph nodes: Unremarkable. No enlarged lymph nodes. Urinary bladder: Urinary bladder is unremarkable in appearance. No wall thickening. No intravesicular calculi. No intravesicular gas. Reproductive: The uterus and adnexa are unremarkable in appearance. There are no dominant adnexal cysts or masslike features. There are no inflammatory features. No uterine mass evident. Bones/joints: No acute skeletal change. Soft tissues: Abdominal wall soft tissues are unremarkable. IMPRESSION: 1. Mid descending colon posterior diverticulitis with prominent inflammation. Region suggesting early abscess or phlegmonous inflammatory change measuring 3.7 x 2.5 cm posterior to the colon. This focus does have continuity with the left psoas muscle and could be a cause of pain with leg raise maneuver. 2. Minor nonspecific free fluid in the pelvic cul-de-sac. 3. Benign-appearing right renal cyst. 4. Fatty liver. Dictated and Authenticated by: Salo Mackay MD. Ordering:JONH Lucero MD
[2023-11-22] MEDS: diphenhydrAMINE 50 MG/ML VIAL 25 MG IVP (21:48)
[2023-11-22] MEDS: Lactated Ringers 1,000 ML 125 ML IV (21:48)
[2023-11-22] MEDS: PIPERACILLIN/TAZO 4.5 GM in Normal Saline 100 ML IVPB (21:48)
[2023-11-22 22:19] LABS: Procalcitonin < 0.1 ng/mL
[2023-11-23] VITALS (38 sets, daily range): BP systolic 107–151; BP diastolic 61–78; PULSE 52–71; RESP 13–23; TEMP 36.3–36.7; O2SAT 91–100
[2023-11-23] MEDS: ACETAMINOPHEN 1,000 MG/100 ML BTL 400 MG IVPB ×4 (01:16→23:58)
[2023-11-23] MEDS: FAMOTIDINE 20 MG in Normal Saline 100 ML 400 MG IVPB ×3 (01:41→23:37)
[2023-11-23] MEDS: Amitriptyline 25 MG TAB PO ×2 (01:41→20:45)
[2023-11-23 05:34] LABS: Abs Immature Grans 0.02 10^3/uL (0.0-0.06); Absolute Basophil Count 0.03 10^3/uL (0.0-0.2); Absolute Eosinophil Count 0.06 10^3/uL (0.0-0.7); Absolute Lymphocyte Count 1.98 10^3/uL (1.2-3.4); Absolute Monocyte Count 0.83 10^3/uL (0.1-0.8); Basophils % 0.3 %; Eosinophils % 0.6 %; HCT 33.7 % (36.0-46.0); Immature Grans % 0.2 %; Lymphocytes % 20.2 %; MCH 31.3 pg (27.0-33.0); MCHC 32.6 % (32.0-36.0); MCV 96 fL (80-95); Monocytes % 8.5 %; Neutrophils % 70.2 %; Platelet Count 205 10^3/uL (130-400); RBC 3.51 10^6/uL (3.93-5.22); RDW 13.1 % (11.7-14.6); RDW-SD 46.5 fL; WBC 9.82 10^3/uL (4.4-10.8)
[2023-11-23 05:44] LABS: Anion Gap 8.1 mmol/L (3-11); BUN 11 mg/dL (7-18); CO2 25.9 mmol/L (21.0-32.0); CREATININE 0.8 mg/dL (0.55-1.02); Calcium 8.3 mg/dL (8.5-10.1); Chloride 106 mmol/L (98-107); Estimated GFR 82.23 (mL/min/1.73m2); Glucose 83 mg/dL (74-106); Magnesium 1.9 mg/dL (1.8-2.4); Potassium 3.5 mmol/L (3.5-5.1); Sodium 140 mmol/L (136-145)
[2023-11-23] MEDS: Lactated Ringers 1,000 ML 125 ML IV (06:20)
[2023-11-23] MEDS: Heparin 5,000 UNITS/ML VIAL 5000 UNITS SC ×2 (08:26→20:45)
--- NOTE | 2023-11-23 08:37 | HPE_ITS ---
Date of service: 11/23/23 Time of Service: 07:15 Assessment and Plan Assessment and plan (1) Diverticulitis of intestine with abscess: Status: Acute Assessment and plan: - Bowel rest -Zosyn -Pain plan -Incentive spirometer use/heparin/Protonix Patient did have a colonoscopy in 2022 Small abscess that should resolve with antibiotics Consider elective resection in the future to prevent further complications This document was created with voice activated software and may contain errors. 20 mins spent in direct pt care and 45 in non face to face time (2) Diverticulitis of large intestine with perforation: Status: Acute (3) GERD (gastroesophageal reflux disease): Status: Chronic (4) Peripheral neuropathy: (5) Urinary incontinence: (6) Anxiety: History of Present Illness Narrative: Patient is a 62-year-old female with an extensive history of diverticulitis. She has a least 1 episode of perforated diverticulitis yearly since 2021. This is the third time she has had a perforation. Her last colonoscopy was in 2022. She has moderate diverticular disease of the sigmoid colon. [place] he was admitted last night with diverticulitis and a 2 cm abscess adjacent to the psoas muscle. It also appears that the sigmoid is adhered down to the bladder. She is not passing any air sediment through the bladder or the vagina. The pain is improved today. She cannot straight straighten out her left leg last night but it is definitely better today. She was having fever and chills but again this is better today. Pain is slightly improved from yesterday. No nausea and vomiting today. She is not having any headaches. She was having a fever but she does not have a fever this morning. She again no nausea and vomiting. No chest pain or shortness of breath. No productive cough. No pain or burning when she urinates. No swelling in her lower extremities. She was having pain in her left leg but this is improved today. She had does have a history of fissures and hemorrhoids. She does not have any significant cardiopulmonary disease and would be a good candidate for anesthesia. Review of Systems All systems reviewed & are unremarkable except as noted in HPI and below PFSH All Active Problems Diverticulitis of intestine with abscess (Acute) Family history of malignant neoplasm of breast (Acute) IBS (irritable bowel syndrome) (Chronic) Reflux gastritis (Acute) Left-sided chest pain (Acute) Gross hematuria (Acute) UTI (urinary tract infection) (Acute) GERD (gastroesophageal reflux disease) (Chronic) Hepatic cyst (Acute) Hydronephrosis of right kidney (Acute) Diverticulitis (Acute) Diverticulitis large intestine (Acute) Rectal fissure (Acute) Unintentional weight loss (Acute) Steatorrhea (Acute) Thrombosed hemorrhoids (Acute) Thrombosed hemorrhoids (Acute) Diverticulitis of large intestine with perforation (Acute) Left shoulder pain (Acute) Paresthesias (Acute) Vision loss of right eye (Acute) Injury of right thumb (Acute) Skier's thumb vs bony contusion Medical History Myalgia Muscle weakness Benign fasciculation-cramp syndrome Anxiety Urinary incontinence Peripheral neuropathy Seborrheic keratosis Labile hypertension History of IBS diarrhea prone Visual disturbance Surgical History History of esophagogastroduodenoscopy (~03/2023) path sent H/O colonoscopy H/O basal cell carcinoma excision Family History Father CAD (coronary artery disease) Hypertension Depression Cancer SMALL CELL LUNG CANCER Mother Hypertension Anxiety Breast cancer Brother Hypertension Depression Stroke HEMORRHAGIC STROKE AT AGE 51 Sister Hypertension Multiple polyps of sigmoid colon Sjogrens syndrome Sister Depression Paternal Aunt Diabetes Stroke Maternal Grandfather Stroke Maternal Grandmother Hypothyroidism Stroke Maternal Uncle Colon cancer Social History Smoking/Tobacco Use Status: Former Tobacco Use Quit Date: 04/02/74 Smoking risk assessment performed?: Yes Alcohol Intake: current Alcohol Intake frequency: a few times a month Alcohol type: wine Details: 1 DRINK PER DAY Drug use: Never Substance use type: does not use Details: alcohol: t-1, 2 ounces wine Housing: house Number of Children: 2 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 Current gender identity: female What is your relationship status?: Panel score (0-1 are the most socially isolated patients): 0 Do you feel safe at home: Yes Do you feel safe in your relationship?: Yes Meds Allergies and Home Medications Allergies Allergy/AdvReac Type Severity Reaction Status Date / Time Penicillins Allergy rash Verified 11/22/23 17:19 reported by her mother years ago amitriptyline AdvReac Intermediate SVT on 50 Verified 11/22/23 17:19 mg erythromycin base AdvReac Intermediate severe gi Verified 11/22/23 17:19 upset hydrochlorothiazide AdvReac Intermediate Dizziness/L Verified 11/22/23 17:19 ighthead Home Medications ?Medication ?Instructions ?Recorded ?Confirmed ?Type estradiol 0.01% (0.1 mg/gram) 0.25 appful vaginal .3 times a week 12/11/22 11/22/23 History vaginal cream amitriptyline 25 mg tablet 25 mg PO QHS 03/21/23 11/22/23 History cholecalciferol (vitamin D3) 25 25 mcg PO DAILY 03/21/23 11/22/23 History mcg (1,000 unit) capsule mecobalamin (vitamin B12) 1,000 1,000 mcg PO DAILY 03/21/23 11/22/23 History mcg chewable tablet ciprofloxacin HCl 500 mg tablet 500 mg PO PRN 11/15/23 11/22/23 History cyanocobalamin (vitamin B-12) 1,000 mcg PO DAILY 11/15/23 11/22/23 History 1,000 mcg capsule estradiol 0.01% (0.1 mg/gram) 1 appful vaginal DAILY 11/15/23 11/22/23 History vaginal cream Exam Narrative Exam Narrative: PHYSICAL EXAM GENERAL APPEARANCE: Alert, healthy appearance, oriented, x 3,? in no acute distress HYDRATION: Well hydrated HEAD, EYES, EARS, NECK, THROAT: Head is normocephalic, pupils equal, round, reactive to light and accommodation, ocular movement intact, sclera clear and no jaundice. ?Dentition intact. No sore throat.? No jaw pain. No thrush LUNGS: normal respiration/normal chest excursion. ?Clear to auscultation bilaterally. ?No wheeze. ?HEART: Regular rate and rhythm. no murmurs EXTREMITY: No edema or cyanosis.? no redness, swelling.? Right low back and posterior leg pain is improved ABDOMEN: Left lower quadrant pain and guarding. Minimal bowel sounds. No distention or diffuse peritonitis Results Labs 11/23/23 05:30 11/23/23 05:30 Labs: Laboratory Results - last 24 hr 11/22/23 11/22/23 11/23/23 17:19 19:10 05:30 WBC 15.53 H 9.82 RBC 4.28 3.51 L Hgb 13.3 11.0 L D Hct 40.5 33.7 L MCV 95 96 H MCH 31.1 31.3 MCHC 32.8 32.6 RDW 13.0 13.1 Plt Count 249 205 MPV 9.2 9.0 Immature Gran % 0.3 0.2 Neutrophils % 80.9 70.2 Lymphocytes % 10.9 20.2 Monocytes % 7.7 8.5 Eosinophils % 0.0 0.6 Basophils % 0.2 0.3 Nucleated RBC % 0.0 0.0 Absolute Neutrophils 12.56 H 6.90 H Absolute Lymphocytes 1.69 1.98 Absolute Monocytes 1.20 H 0.83 H Absolute Eosinophils 0.00 0.06 Absolute Basophils 0.03 0.03 Sodium 138 140 Potassium 3.6 3.5 Chloride 101 106 Carbon Dioxide 27.7 25.9 Anion Gap 9.3 8.1 BUN 15 11 Creatinine 0.9 0.8 Est GFR (CKD-EPI 2020) 71.39 82.23 Glucose 97 83 Calcium 9.3 8.3 L Magnesium 2.1 1.9 Total Bilirubin 0.72 Conjugated Bilirubin 0.2 AST 19 ALT 26 Alkaline Phosphatase 72 Total Protein 7.7 Albumin 3.6 Procalcitonin < 0.1 Urine Color Yellow Urine Clarity Clear Urine pH 5.5 Ur Specific [place] >= 1.030 H Urine Protein Trace Urine Ketones 40 H Urine Blood Small H Urine Nitrite Negative Urine Bilirubin Small H Urine Urobilinogen 0.2 Ur Leukocyte Esterase Negative Urine RBC 3-5 H Urine WBC 0-2 Ur Epithelial Cells Few Urine Crystals Negative Urine Bacteria Rare Urine Casts Negative Urine Mucus Trace Ur Culture Indicated? No Urine Glucose Negative Last Vital Signs Temp 36.1 C L 11/22/23 17:15 Pulse 55 L 11/23/23 05:26 Resp 15 11/23/23 05:26 BP 135/61 11/23/23 05:26 Pulse Ox 99 11/23/23 05:26 Time Spent Time spent with Patient: 55-74 minutes Time was spent: preparing to see the patient(eg.review tests), obtaining and/or reviewing separately otained hiistory, ordering medications,tests, procedures, referring, communicating with other health managed care nurse, indepentently interpreting results, counseling the patient, care coordination and other
[2023-11-23] MEDS: PIPERACILLIN/TAZO 3.375 GM in Normal Saline 50 ML IVPB ×3 (10:00→22:10)
[2023-11-23] MEDS: Lactated Ringers 1,000 ML 82 ML IV (11:29)
--- NOTE | 2023-11-23 11:40 | W.PC.ACHO ---
Registration Status: Primary Language: Preferred Language: ED Information & Data Chief Complaint Abd Prob 11/22/23 18:17 Triage Note Pt c/o fever, chills, mid- 11/22/23 17:15 left abd pain radiating to the L flank area, can't life L leg. Denies SOB/CP, v/d. Denies urinary s/s but does c/o nausea. Pt denies taking pain meds [employer]. Pt has a hx of diverticulitis. No abd surgeries in the past. Medical / Surgical History (Last Reviewed 11/23/23 @ 08:40 by Nita Kamara DO) Myalgia Muscle weakness Benign fasciculation-cramp syndrome Anxiety Urinary incontinence Peripheral neuropathy Seborrheic keratosis Labile hypertension History of IBS Visual disturbance (Last Reviewed 11/23/23 @ 08:40 by Nita Kamara DO) History of esophagogastroduodenoscopy (~03/2023) H/O colonoscopy H/O basal cell carcinoma excision Most Recent Vital Signs Temperature 36.7 C 11/23/23 11:19 Temperature Source Oral 11/22/23 17:15 Pulse 61 11/23/23 11:19 Pulse Rhythm Regular 11/23/23 11:11 Pulse Strength Normal 11/22/23 20:36 Pulse 52 L 11/23/23 05:26 Respiratory Rate 16 11/23/23 11:19 Respiratory Effort Normal, Non-Labored 11/23/23 11:11 Respiratory Depth Normal 11/23/23 11:11 Respiratory Pattern Normal 11/23/23 11:11 Blood Pressure 151/78 H 11/23/23 11:19 Blood Pressure Mean 76 11/23/23 05:26 Blood Pressure Position Sitting 11/22/23 20:36 Pulse Oximetry 100 11/23/23 11:19 Oxygen Delivery Method Room Air 11/23/23 11:19 Oxygen Flow Rate 0 11/23/23 11:19 Pain Level 2 11/23/23 11:19 Allergies Penicillins Allergy (Verified 11/22/23 17:19) rash reported by her mother years ago amitriptyline Adverse Reaction (Intermediate, Verified 11/22/23 17:19) SVT on 50 mg erythromycin base Adverse Reaction (Intermediate, Verified 11/22/23 17:19) severe gi upset hydrochlorothiazide Adverse Reaction (Intermediate, Verified 11/22/23 17:19) Dizziness/Lighthead Active Medications Generic Name Dose Route Start Last Admin Trade Name Mariah PRN Reason Stop Dose Admin Amitriptyline HCl 25 mg 11/22/23 23:00 11/23/23 01:41 Amitriptyline 25 Mg Tab PO 25 mg HS PRABHA Administration Heparin Sodium (Porcine) 5,000 units 11/23/23 08:00 11/23/23 08:26 Heparin 5,000 Units/Ml Vial SC 5,000 units Q12H PRABHA Administration Ringer's Solution 1,000 mls @ 82 mls/hr 11/22/23 21:30 11/23/23 11:29 IV 82 mls/hr INFUSION PRABHA Administration Acetaminophen 1,000 mg in 100 mls @ 400 mls/hr 11/23/23 00:00 11/23/23 10:43 Ofirmev IVPB Infused Q8H PRABHA Infusion Famotidine 20 mg/ Sodium 102 mls @ 400 mls/hr 11/22/23 22:45 11/23/23 10:43 Chloride IVPB Infused Q12H PRABHA Infusion Piperacillin Sod/Tazobactam 50 mls @ 100 mls/hr 11/23/23 10:00 11/23/23 10:42 Sod 3.375 gm/ Sodium Chloride IVPB Infused Q6H PRABHA Infusion Sodium Chloride 0 ml 11/23/23 08:30 11/23/23 11:36 Normal Saline Flush 10 Ml Syr IVP Not Given BID PRABHA IV IV Catheter Type [Right Saline Lock Forearm] IV Catheter Gauge [Right 20 Forearm] Diet Orders Category Date Time Status Nothing Per Oral [DIET] Nutrition 11/23/23 Breakfast Active Diagnostics 11/23/23 11/22/23 11/22/23 Range/Units 05:30 19:10 17:19 WBC 9.82 15.53 H (4.4-10.8) 10^3/uL RBC 3.51 L 4.28 (3.93-5.22) 10^6/uL Hgb 11.0 L D 13.3 (11.2-15.7) g/dL Hct 33.7 L 40.5 (36.0-46.0) % MCV 96 H 95 (80-95) fL MCH 31.3 31.1 (27.0-33.0) pg MCHC 32.6 32.8 (32.0-36.0) % RDW 13.1 13.0 (11.7-14.6) % Plt Count 205 249 (130-400) 10^3/uL MPV 9.0 9.2 (8.0-11.0) fL Immature Gran % 0.2 0.3 % Neutrophils % 70.2 80.9 % Lymphocytes % 20.2 10.9 % Monocytes % 8.5 7.7 % Eosinophils % 0.6 0.0 % Basophils % 0.3 0.2 % Nucleated RBC % 0.0 0.0 (0.0-0.3) % Absolute Neutrophils 6.90 H 12.56 H (1.2-6.7) 10^3/uL Absolute Lymphocytes 1.98 1.69 (1.2-3.4) 10^3/uL Absolute Monocytes 0.83 H 1.20 H (0.1-0.8) 10^3/uL Absolute Eosinophils 0.06 0.00 (0.0-0.7) 10^3/uL Absolute Basophils 0.03 0.03 (0.0-0.2) 10^3/uL Sodium 140 138 (136-145) mmol/L Potassium 3.5 3.6 (3.5-5.1) mmol/L Chloride 106 101 (98-107) mmol/L Carbon Dioxide 25.9 27.7 (21.0-32.0) mmol/L Anion Gap 8.1 9.3 (3-11) mmol/L BUN 11 15 (7-18) mg/dL Creatinine 0.8 0.9 (0.55-1.02) mg/dL Est GFR (CKD-EPI 2020) 82.23 71.39 (mL/min/1.73m2) Glucose 83 97 (74-106) mg/dL Calcium 8.3 L 9.3 (8.5-10.1) mg/dL Magnesium 1.9 2.1 (1.8-2.4) mg/dL Total Bilirubin 0.72 (0.2-1.0) mg/dL Conjugated Bilirubin 0.2 (0.0-0.2) mg/dL AST 19 (15-37) U/L ALT 26 (14-59) U/L Alkaline Phosphatase 72 (46-116) U/L Total Protein 7.7 (6.4-8.2) g/dL Albumin 3.6 (3.4-5.0) g/dL Procalcitonin < 0.1 ng/mL Urine Color Yellow (Yellow) Urine Clarity Clear (Clear) Urine pH 5.5 (5-8) Ur Specific [place] >= 1.030 H (1.005-1.025) Urine Protein Trace (Neg-Trace) mg/dL Urine Ketones 40 H (Negative) mg/dL Urine Blood Small H (Negative) Urine Nitrite Negative (Negative) Urine Bilirubin Small H (Negative) Urine Urobilinogen 0.2 (Up to 0.2) mg/dL Ur Leukocyte Esterase Negative (Negative) Urine RBC 3-5 H (0-2) HPF Urine WBC 0-2 (0-5) HPF Ur Epithelial Cells Few (Negative) HPF Urine Crystals Negative (Negative) HPF Urine Bacteria Rare (Negative) HPF Urine Casts Negative (Negative) LPF Urine Mucus Trace (Negative) Ur Culture Indicated? No Urine Glucose Negative (Negative) mg/dL 11/22/23 21:50 Blood Culture - Pending Blood 11/22/23 21:35 Blood Culture - Pending Blood Intake and Output - 24 Hour Total 11/22/23 17:13 thru 11/23/23 11:28 Intake Total 3574.000 Balance 3574.000 Weight 58.06 kg Intake: IV 3574.000 Falls Risk Assessment History of Falls No History 11/23/23 11:11 Contributing Factors No Factors 11/23/23 11:11 Ambulatory Aids Independent 11/23/23 11:11 Tubes/Lines W/no contributing factors 11/23/23 11:11 Gait Evaluation No gait disturbance 11/23/23 11:11 Cognition No cognitive impairment 11/23/23 11:11 Fall Total Score 10 11/23/23 11:11 Level of Risk Standard/Low Risk 11/23/23 11:11 Problems (Last Reviewed 11/23/23 @ 08:40 by Nita Kamara DO) Diverticulitis of intestine with abscess (Acute) GERD (gastroesophageal reflux disease) (Chronic) Diverticulitis of large intestine with perforation (Acute) v v v v v v v v v Sending and/or Receiving Nurses: Please use comment section below to note any information pertinent to the patient hand-off not included above. Information / Comments: PT presents to ER with ABD pain and N/V.PT has had frequent bouts of diverticulitis in the past and recognized the s/s. A&O x's 4, steady on feet. Pt is NPO, with sips and chips allowed. Report received from: KIM Baxter
[2023-11-23] MEDS: Normal Saline Flush 10 ML SYR IVP (23:37)
[2023-11-24] MEDS: Lactated Ringers 1,000 ML 82 ML IV (03:24)
[2023-11-24] MEDS: PIPERACILLIN/TAZO 3.375 GM in Normal Saline 50 ML IVPB ×4 (04:26→22:33)
[2023-11-24 07:21] LABS: BUN 7 mg/dL (7-18); CREATININE 0.9 mg/dL (0.55-1.02); Calcium 8.3 mg/dL (8.5-10.1); Chloride 105 mmol/L (98-107); Estimated GFR 71.39 (mL/min/1.73m2); Glucose 80 mg/dL (74-106); Magnesium 1.8 mg/dL (1.8-2.4); Potassium 3.3 mmol/L (3.5-5.1); Sodium 143 mmol/L (136-145)
[2023-11-24 08:00] VITALS: BP 120/71; PULSE 60; RESP 20; TEMP 36.9; O2SAT 99
[2023-11-24] MEDS: Normal Saline Flush 10 ML SYR IVP ×3 (08:41→20:17)
[2023-11-24] MEDS: ACETAMINOPHEN 1,000 MG/100 ML BTL 400 MG IVPB ×2 (08:42→15:40)
[2023-11-24] MEDS: Heparin 5,000 UNITS/ML VIAL 5000 UNITS SC (09:00)
--- NOTE | 2023-11-24 09:01 | W.PM.PROGNOT ---
Date of Service Date of service: 11/24/23 Time of Service: 09:01 Assessment and Plan Assessment and plan (1) Diverticulitis of intestine with abscess: Status: Acute Assessment and plan: 62-year-old woman with recurrent episodes of sigmoid diverticulitis. She is hemodynamically stable and improving clinically. She has a small abscess that does not warrant IR drainage. She has had multiple episodes and is considering surgical intervention in the near term. Unfortunately, she does say that over the last few weeks/months she has been having multiple UTIs. It makes me very suspicious for a colovesicular fistula. Her clinical story is a set up for such. Overall plan: Clear liquid diet Continue IV antibiotics DVT prophylaxis Stool softeners Possible discharge tomorrow Subjective Subjective Interval history since last seen: No complaints at the bedside. She says she feels drastically improved. No fevers. Has not had a bowel movement yet. Exam Narrative Exam Narrative: General: Nontoxic, comfortable and interactive. Does not appear in any pain or discomfort. Neuro: Alert and oriented x 3 Psych: Good mood and affect, good understanding and insight Abdomen: Soft, nondistended and really only minimally tender in the left lower quadrant. No peritoneal signs Objective Last Vital Signs Temp 97.7 F 11/23/23 23:01 Pulse 57 L 11/23/23 23:01 Resp 16 11/23/23 23:01 BP 107/61 11/23/23 23:01 Pulse Ox 96 11/23/23 23:01 Laboratory Results - last 24 hr 11/24/23 06:25 Sodium 143 Potassium 3.3 L Chloride 105 Carbon Dioxide 29.0 Anion Gap 9.0 BUN 7 Creatinine 0.9 Est GFR (CKD-EPI 2020) 71.39 Glucose 80 Calcium 8.3 L Magnesium 1.8 PAWSS Have you Been Recently Intoxicated or Drunk Within the Last 30 days?: No Have you Ever Experienced Previous Episodes of Alcohol Withdrawal?: No Have you ever Experienced Withdrawal Seizures?: No Have you ever Experienced Delirium Tremens(DT)s?: No Have you ever undergone Alcohol Rehabilitation Treatment (i.e, inpt ot outpatient treatment programs)?: No Have you ever Experienced Blackouts?: No Have you ever Combined Alcohol with other Downers within the last 90 days?: No Have you ever Combined Alcohol with any other Substance of Abuse during the last 90 days?: No Positive Blood Alcohol level on Presentation? [PCS.BAL]: No Evidence of Increased Autonomic Activity (i.e. HR>120, tremor, sweating, agitation, nausea)?: No Result: 0 Time Spent with Patient Time Spent with Patient: <25 minutes Time was spent: preparing to see the patient(eg.review tests), obtaining and/or reviewing separately otained hiistory, ordering medications,tests, procedures, referring, communicating with other health care team coordinator scheduler, indepentently interpreting results, counseling the patient, care coordination and other
[2023-11-24] MEDS: FAMOTIDINE 20 MG in Normal Saline 100 ML 400 MG IVPB ×2 (09:47→23:42)
[2023-11-24] MEDS: Docusate Sodium 100 MG CAP PO (13:59)
[2023-11-24 20:10] VITALS: BP 155/76; PULSE 60; RESP 14; TEMP 37.3; O2SAT 99
[2023-11-24] MEDS: Amitriptyline 25 MG TAB PO (20:17)
[2023-11-25] MEDS: ACETAMINOPHEN 1,000 MG/100 ML BTL 400 MG IVPB (00:27)
[2023-11-25] MEDS: PIPERACILLIN/TAZO 3.375 GM in Normal Saline 50 ML IVPB ×2 (04:31→09:37)
[2023-11-25 07:18] VITALS: BP 134/79; PULSE 62; RESP 16; TEMP 36.7; O2SAT 97
[2023-11-25] MEDS: Normal Saline Flush 10 ML SYR IVP (07:48)
[2023-11-25] MEDS: Docusate Sodium 100 MG CAP PO (07:48)
--- NOTE | 2023-11-25 08:03 | W.PM.DS.N ---
Date of service: 11/25/23 Time of Service: 09:00 DS: Diagnosis Discharge Diagnosis (1) Diverticulitis of intestine with abscess: Status: Acute Asessment and Plan: 62-year-old woman with recurrent diverticulitis and partial large bowel obstruction symptoms on and off related to these attacks chronically. She is hemodynamically stable, afebrile and had no white count as of yesterday. She is having bowel function (4 loose stools this morning). She can be set up for discharge home. 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 She will be discharged home on oral antibiotic therapy. I recommended the followin-8 week recovery timeframe followed by a laparoscopic low anterior resection(presumable necessary takedown of colovesicular fistula) If she develops recurrent symptoms sooner than that, 2 weeks of oral antibiotics followed by surgery sooner. Protein drinks and high?protein diet for the next 3 months in anticipation for surgery I think she has a follow-up appointment with either Dr. Edward or Dr. Kamara in the next few weeks for planning purposes. Discharge Plan Disposition Patient Disposition: Home Condition: Good Discharge Details Reason For Visit: Diverticulitis w/Abscess Admit Date/Time: 11/22/23 22:45 Admit Provider: Nita Kamara Attending Provider: Nita Kamara Primary Care Provider: Kaylin Walden Home Meds and New Rx's Prescriptions: No Action estradiol 0.01 % (0.1 mg/gram) cream 0.25 appful vaginal .3 times a week amitriptyline 25 mg tablet 25 mg PO QHS cholecalciferol (vitamin D3) 25 mcg (1,000 unit) capsule 25 mcg PO DAILY mecobalamin (vitamin B12) 1,000 mcg tablet,chewable 1,000 mcg PO DAILY estradiol 0.01 % (0.1 mg/gram) cream 1 appful vaginal DAILY Rx Instructions: for 14 days cyanocobalamin (vitamin B-12) 1,000 mcg capsule 1,000 mcg PO DAILY ciprofloxacin HCl 500 mg tablet 500 mg PO PRN Discharge Instructions Activity:: Activity as Tolerated Equipment/Supplies:: No Equipment Needed Diet:: As Tolerated DS: Summary Time Spent with Patient providing and/or coordinating discharge services: Greater than 30 minutes Status at Discharge Functional status at discharge: independent ambulation Overall status at discharge: patient is back to baseline Mental Status: mental status grossly normal Speech and Movement: speech and movement normal Mood: congruent mood Affect: normal affect Quality:SDOH Health Related Social Needs: No Data to Display Exam Narrative Exam Narrative: General: Nontoxic, comfortable and interactive Neuro: Alert and oriented x 3 Psych: Good mood and affect, excellent insight and understanding into her condition Chest: Nonlabored breathing and no wheezing Heart: Regular Abdomen: Soft, nondistended and no significant tenderness. Psych Mental Status: mental status grossly normal Speech and Movement: speech and movement normal Mood: congruent mood Affect: normal affect DS: Data Vitals/I&O Vitals and I&O: Vital Signs Temperature 98.1 F 11/25/23 07:18 Temperature Source Temporal Artery Scan 11/25/23 07:18 Pulse 62 11/25/23 07:18 Pulse Rhythm Regular 11/24/23 20:10 Pulse Strength Normal 11/22/23 20:36 Pulse 52 L 11/23/23 05:26 Respiratory Rate 16 11/25/23 07:18 Respiratory Effort Normal, Non-Labored 11/24/23 20:10 Respiratory Depth Normal 11/24/23 20:10 Respiratory Pattern Normal 11/24/23 20:10 Blood Pressure 134/79 11/25/23 07:18 Blood Pressure Mean 76 11/23/23 05:26 Blood Pressure Position Sitting 11/22/23 20:36 Pulse Oximetry 97 11/25/23 07:18 Oxygen Delivery Method Room Air 11/25/23 07:18 Oxygen Flow Rate 0 11/25/23 07:18 Pain Level 0 11/25/23 07:47 Comment RN notified of vitals 11/23/23 14:56 Intake & Output 11/24/23 11/24/23 11/25/23 11:59 23:59 11:59 Intake Total 1114 / 3376 2160 / 3376 252 / 252 Balance 1114 / 3376 2160 / 3376 252 / 252 Intake: IV 1114 / 2416 1200 / 2416 252 / 252 Oral 960 / 960 Other: Urine Color Yellow Urine Appearance Clear Urine Odor Normal Comment Pt voiding independently in bathroom. Denies GI/ sx. Voiding Methods Toilet Data Completed and Pending Labs on day of discharge: Labs from last 24 hours 11/25/23 07:07 WBC Pending RBC Pending Hgb Pending Hct Pending MCV Pending MCH Pending MCHC Pending RDW Pending Plt Count Pending MPV Pending Immature Gran % Pending Neutrophils % Pending Lymphocytes % Pending Monocytes % Pending Eosinophils % Pending Basophils % Pending Absolute Neutrophils Pending Absolute Lymphocytes Pending Absolute Monocytes Pending Absolute Eosinophils Pending Absolute Basophils Pending Preliminary micro results at discharge 11/22/23 21:50 Blood Culture - Preliminary Blood NO GROWTH 48 HOURS 11/22/23 21:35 Blood Culture - Preliminary Blood NO GROWTH 48 HOURS PFSH All Active Problems Diverticulitis of intestine with abscess (Acute) Family history of malignant neoplasm of breast (Acute) IBS (irritable bowel syndrome) (Chronic) Reflux gastritis (Acute) Left-sided chest pain (Acute) Gross hematuria (Acute) UTI (urinary tract infection) (Acute) GERD (gastroesophageal reflux disease) (Chronic) Hepatic cyst (Acute) Hydronephrosis of right kidney (Acute) Diverticulitis (Acute) Diverticulitis large intestine (Acute) Rectal fissure (Acute) Unintentional weight loss (Acute) Steatorrhea (Acute) Thrombosed hemorrhoids (Acute) Thrombosed hemorrhoids (Acute) Diverticulitis of large intestine with perforation (Acute) Left shoulder pain (Acute) Paresthesias (Acute) Vision loss of right eye (Acute) Injury of right thumb (Acute) Skier's thumb vs bony contusion Medical History Myalgia Muscle weakness Benign fasciculation-cramp syndrome Anxiety Urinary incontinence Peripheral neuropathy Seborrheic keratosis Labile hypertension History of IBS diarrhea prone Visual disturbance Surgical History History of esophagogastroduodenoscopy (~03/2023) path sent H/O colonoscopy H/O basal cell carcinoma excision Family History Father CAD (coronary artery disease) Hypertension Depression Cancer SMALL CELL LUNG CANCER Mother Hypertension Anxiety Breast cancer Brother Hypertension Depression Stroke HEMORRHAGIC STROKE AT AGE 51 Sister Hypertension Multiple polyps of sigmoid colon Sjogrens syndrome Sister Depression Paternal Aunt Diabetes Stroke Maternal Grandfather Stroke Maternal Grandmother Hypothyroidism Stroke Maternal Uncle Colon cancer Social History Smoking/Tobacco Use Status: Former Tobacco Use Quit Date: 04/02/74 Smoking risk assessment performed?: Yes Alcohol Intake: current Alcohol Intake frequency: a few times a month Alcohol type: wine Details: 1 DRINK PER DAY Drug use: Never Substance use type: does not use Details: alcohol: t-1, 2 ounces wine Housing: house Number of Children: 2 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[employer] Current gender identity: female What is your relationship status?: Panel score (0-1 are the most socially isolated patients): 0 Do you feel safe at home: Yes Do you feel safe in your relationship?: Yes Time Spent with Patient Time Spent with Patient: 45-69 minutes Time was spent: preparing to see the patient(eg.review tests), obtaining and/or reviewing separately otained hiistory, ordering medications,tests, procedures, referring, communicating with other health social worker palliative care, indepentently interpreting results, counseling the patient (Extensive discussion about operative expectations and preoperative nutrition and outpatient circumstances leading up to operation), care coordination and other
--- NOTE | 2023-11-25 12:13 | PDOC.CMDIS ---
Date of service: 11/25/23 Time of Service: 12:13 LACE Index Scoring Tool Questions: Length of Stay (in days): 3 Was the patient admitted via the E.D.?: Yes E.D. Visits: 1 Answers: Total Score: 7 Risk of Readmission: Low Risk Care Management Discharge Plan Reason for Hospitalization: diverticulitis with abscess Discharge Plan: Siena will be discharged home with no new services. She will follow up with her surgeon, PCP and plan of care as prescribed. Siena will transport home via private vehicle with family. SDOH Health Related Social Needs: No Data to Display
== END 2023-11-25 11:34 | disposition home or self-care (01) | DRG 392 ==
LOC: ER 21:27 → EDHOLD 23:11 → MS 11-23 11:21
PROVIDERS: Emergency Medicine; Admitting Provider Surgery; Emergency Provider Nurse Practitioner Family; PCP Nurse Practitioner Adult Health; Visit Provider Surgery
DX: K57.20 Diverticulitis of large intestine with perforation and abscess without bleeding (principal); K56.690 Other partial intestinal obstruction; N32.1 Vesicointestinal fistula; K90.9 Intestinal malabsorption, unspecified; G62.9 Polyneuropathy, unspecified; K21.9 Gastro-esophageal reflux disease without esophagitis; F41.9 Anxiety disorder, unspecified; R32 Unspecified urinary incontinence; K58.9 Irritable bowel syndrome, unspecified; K29.60 Other gastritis without bleeding; M54.50 Low back pain, unspecified; M79.661 Pain in right lower leg; Z87.440 Personal history of urinary (tract) infections; R31.0 Gross hematuria
CPT/HCPCS: 00123; 36410; 36415; 80048; 80053; 84145; 87040; 96361; 96365; 96366; 96367; 96372; 96375; 99285; 74177; 81003; 81015; 82248; 83735; 85025; J0131; J1200; J1644; J1885; J2543; J3490

== ENCOUNTER → 2023-12-11 08:42 | Outpatient (BNVA) | payer MEDICARE, BC, SELFPAY | PROVIDERS: PCP Nurse Practitioner Adult Health; Referring Provider Nurse Practitioner Adult Health; Visit Provider Surgery | DX: K57.80 Diverticulitis of intestine, part unspecified, with perforation and abscess without bleeding (principal) | CPT/HCPCS: 99214 ==

== ENCOUNTER 2023-12-28 09:48 | Outpatient (CLI) | payer MEDICARE, BC, SELFPAY ==
--- NOTE | 2023-12-28 09:30 | DI.CT_ITS ---
Exam(s) CT ABDOMEN PELVIS W EXAM: CT ABDOMEN PELVIS W CLINICAL HISTORY: Increasing symptoms, diverticulitis with abscess, K57.80. TECHNIQUE: Imaging Protocol: Axial computed tomography images with coronal and sagittal reformatted images were created and reviewed CONTRAST MATERIAL: Intravenous: Omnipaque-350 85cc Oral: Yes. Oral contrast was also administered for bowel opacification. The oral contrast has reach ed the level of the rectum by the time of image acquisition. COMPARISON: CT CT ABDOMEN PELVIS W from 11/22/2023 FINDINGS: VISUALIZED LUNG BASES: No nodules nor pleural effusions evident. ABDOMEN: There is no ascites. Previously present for free fluid in the pelvis has resolved. LIVER: There are no focal hepatic lesions evident. No evidence of liver abscess given the recent his tory of diverticulitis. No evidence of gas within the portal venous system. GALLBLADDER/BILIARY: No obvious gallbladder pathology. CBD is not dilated. PANCREAS: No evidence of pancreatic mass nor dilatation of the pancreatic duct. SPLEEN: Spleen is not enlarged. No obvious intrasplenic lesions. Splenic and portal veins are paten t. ADRENALS: There are no significant adrenal masses. KIDNEYS:Small benign cyst in the right kidney measuring 8 millimeters again noted. Does not require further workup. Another smaller cyst is noted in the medial cortex of the opposite-left kidney, also not requiring workup. There are no significant solid renal masses. No calculi. No hydronephrosis nor hydroureter. No masses nor calculi nor gas within the urinary bladder. Bladder is not distended .. ABDOMINAL AORTA: Abdominal aorta is not enlarged. LYMPH NODES:There is no retroperitoneal nor paraaortic adenopathy. ABDOMINAL WALL: No evidence of significant anterior abdominal wall nor inguinal hernia. GI: The previously described diverticulitis in the descending-left colon has resolved. The pericolon ic streaking and colon wall edema at this level has significantly improved. There are still divertic erika in the descending colon and sigmoid but no evidence of acute diverticulitis at this time. No cherelle dence of free air, abscess, nor bowel obstruction. PELVIS: GI: No evidence of appendicitis. LYMPH NODES: There is no intrapelvic nor inguinal adenopathy. REPRODUCTIVE: Uterus and adnexal regions appear un remarkable. URINARY BLADDER: Unremarkable. Also no intraluminal gas to suggest fistulous communication from the recent a bout of diverticulitis of the colon OSSEOUS: No fractures and no significant osseous lesions. Some disc space narrowing at L2-3 level. IMPRESSION: When compared to the prior CT scan of 11/22/2023 there has been significant improvement in the previo usly described diverticulitis findings in the descending-left colon. There is presently no evidence of obvious acute inflammatory process and there is no evidence of remaining free fluid in the abdomen and pelvis. RADIATION DOSE DELIVERED: 211.89mGy.cm Total DLP DATA REPOSITORY: All CT scans at this facility are submitted to the National Radiology Data Registry (NRDR) Dose Index Registry (DIR) with the [employer] (ACR). RADIATION OPTIMIZATION: All CT scans at this facility use at least one of these dose optimization te chniques: automated exposure control; mA and/or kV adjustment per patient size (includes targeted exa ms where dose is matched to clinical indication); or iterative reconstruction.
[2023-12-28] MEDS: Breeza Beverage 473 ML BTL PO ×2 (12:03→12:05)
[2023-12-28] MEDS: Omnipaque 350 MG/ML 50 ML BTL PO (12:05)
[2023-12-28] MEDS: Omnipaque 350 MG/ML 100 ML BTL IJ (14:01)
[2023-12-28] MEDS: Normal Saline - Diluent 50 ML VIAL IJ (14:01)
== END 2023-12-28 10:08 ==
LOC: DI 09:50
PROVIDERS: PCP Nurse Practitioner Adult Health; Visit Provider Surgery
DX: K57.32 Diverticulitis of large intestine without perforation or abscess without bleeding (principal)
CPT/HCPCS: 74177; J3490; Q9967

== ENCOUNTER 2024-01-02 06:15 | Inpatient (IN) | payer MEDICARE, BC, SELFPAY ==
[2024-01-02] VITALS (28 sets, daily range): BP systolic 84–140; BP diastolic 41–86; PULSE 59–71; RESP 10–21; TEMP 35.7–37; O2SAT 97–100; BMI 20.5
[2024-01-02] MEDS: Lactated Ringers 1,000 ML 80 ML IV ×2 (06:55→13:25)
[2024-01-02] MEDS: metroNIDAZOLE 500 MG/100 ML BAG 100 MG IVPB (07:03)
--- NOTE | 2024-01-02 07:16 | NUR.NOTE ---
0710: aware that pt. is nauseous. Zackery March CRNA, in to speak to pt. and give pt. zofran. aware pt. has not received pre op cocktail. Nursing instructed to ask pt to attempt after being medicated. Pt. understands and will let nurse know if she thinks she can keep it down. Nursing monitoringNursing Note:
--- NOTE | 2024-01-02 07:25 | ANES.PREOP_ITS ---
General Info Date of Service Date Performed: 01/02/24 Height: 5 ft 5 in Weight: 56 kg Body Mass Index (BMI): 20.5 Surgical Procedure: Operation Date: 01/02/24 07:50 Proposed Procedure Side Surgeon p Sigmoid Resection Laparoscopic Simone Edward MD Meds Allergies and Home Medications Allergies Allergy/AdvReac Type Severity Reaction Status Date / Time amitriptyline AdvReac Intermediate SVT on 50 Verified 01/02/24 06:27 mg erythromycin base AdvReac Intermediate severe gi Verified 01/02/24 06:27 upset hydrochlorothiazide AdvReac Intermediate Dizziness/L Verified 01/02/24 06:27 ighthead Home Medication ?Medication ?Instructions ?Recorded estradiol 0.01% (0.1 mg/gram) 0.25 appful vaginal .3 times a week 12/11/22 vaginal cream amitriptyline 25 mg tablet 25 mg PO QHS 03/21/23 cholecalciferol (vitamin D3) 25 25 mcg PO DAILY 03/21/23 mcg (1,000 unit) capsule mecobalamin (vitamin B12) 1,000 1,000 mcg PO DAILY 03/21/23 mcg chewable tablet ciprofloxacin HCl 500 mg tablet 500 mg PO PRN 11/15/23 cyanocobalamin (vitamin B-12) 1,000 mcg PO DAILY 11/15/23 1,000 mcg capsule estradiol 0.01% (0.1 mg/gram) 1 appful vaginal DAILY 11/15/23 vaginal cream bisacodyl 5 mg tablet,delayed 5 mg PO ONCE colonscopy bowel prep 11/28/23 release (Dulcolax (bisacodyl)) #8 tabs metronidazole 500 mg tablet 500 mg PO .COMPLEX #8 tabs 11/28/23 neomycin 500 mg tablet 500 mg PO .COMPLEX #8 tabs 11/28/23 ondansetron HCl 8 mg tablet 8 mg PO Q12H #3 tabs 11/28/23 polyethylene glycol 3350 17 238 g PO ONCE colonoscopy prep 11/28/23 gram/dose oral powder #238 grams Current Visit Medications: Current Medications Generic Name Dose Route Start Last Admin Trade Name Freq PRN Reason Stop Dose Admin Acetaminophen 1,000 mg 01/02/24 06:00 Acetaminophen 500 Mg Tab PO 01/02/24 23:59 PREOP PRABHA Celecoxib 200 mg 01/02/24 06:00 Celecoxib 200 Mg Cap PO 01/02/24 23:59 PREOP PRABHA Gabapentin 600 mg 01/02/24 06:00 Gabapentin 300 Mg Cap PO 01/02/24 23:59 PREOP PRABHA Ringer's Solution 1,000 mls @ 80 mls/hr 01/02/24 06:00 01/02/24 06:55 IV 01/02/24 23:59 80 mls/hr INFUSION PRABHA Administration Cefazolin Sodium/Dextrose 2 gm in 50 mls @ 100 mls/hr 01/02/24 06:00 Ancef Duplex IVPB 01/02/24 23:59 PREOP PRABHA Metronidazole 500 mg in 100 mls @ 100 mls/hr 01/02/24 06:00 01/02/24 07:03 Flagyl IVPB 01/02/24 23:59 100 mls/hr PREOP PRABHA Administration IV Miscellaneous Supplies 1 each 01/02/24 06:00 Iv Access IV 01/02/24 23:59 DIRECTED PRABHA Sodium Chloride 0 ml 01/02/24 06:00 Normal Saline Flush 10 Ml Syr IV 01/02/24 23:59 PRN PRN Sodium Chloride 0 ml 01/02/24 06:00 Normal Saline 10 Ml Vial IJ 01/02/24 23:59 DIRECTED PRN Sterile Water 0 ml 01/02/24 06:00 Water,Injection,Sterile 10 Ml Vial IJ 01/02/24 23:59 DIRECTED PRN PFSH Active Problems Active Problems: Problem Status Onset Code Diverticulitis of intestine with abscess Acute K57.80 Family history of malignant neoplasm of breast Acute Z80.3 IBS (irritable bowel syndrome) Chronic K58.9 Reflux gastritis Acute K29.60 Left-sided chest pain Acute R07.9 Gross hematuria Acute R31.0 Hepatic cyst Acute K76.89 Hydronephrosis of right kidney Acute N13.30 Diverticulitis Acute K57.92 Diverticulitis large intestine Acute K57.32 Rectal fissure Acute K60.2 Unintentional weight loss Acute R63.4 Steatorrhea Acute K90.9 Thrombosed hemorrhoids Acute K64.5 Thrombosed hemorrhoids Acute K64.5 Diverticulitis of large intestine with perforation Acute K57.20 Left shoulder pain Acute M25.512 Paresthesias Acute R20.2 Vision loss of right eye Acute H54.61 Injury of right thumb Acute S69.91XA Medical History Medical History History of insertion of dental endosseous implant UTI (urinary tract infection) GERD (gastroesophageal reflux disease) Myalgia Muscle weakness Benign fasciculation-cramp syndrome Anxiety Urinary incontinence Peripheral neuropathy Seborrheic keratosis Labile hypertension History of IBS diarrhea prone Visual disturbance Medical History Comments:: 01/02/24: Pt. arrived feeling very nauseous reop note: Per pt. states BP is stress related. Pt states she went to ER 01/28/23 for upper left abdominal pain. 02/01/23 Pt states it has resolved and she is no longer having any pain. Surgical History Surgical History History of esophagogastroduodenoscopy (~03/2023) path sent H/O colonoscopy H/O basal cell carcinoma excision Tobacco Smoking/Tobacco Use Status: Former Tobacco Use Alcohol Alcohol Intake: current Alcohol intake frequency: a few times a month Alcohol type: wine Details: 1 DRINK PER DAY Substance Use Substance use: Never Substance use type: does not use Details: alcohol: t-2, one glass Vital Signs and Lab Results Vital Signs Most Recent Vital Signs in EMR: Most Recent Vital Signs Temp Pulse Resp BP Pulse Ox 36.5 C 71 16 140/86 100 01/02/24 06:34 01/02/24 06:34 01/02/24 06:34 01/02/24 06:34 01/02/24 06:34 Lab Results Blood Type / Crossmatch: Antibody Screen Pending 01/02/24 Complete Blood Count: No Data to Display Complete Metabolic Panel: No Data to Display Liver Function Panel: No Data to Display Coagulation Panel: No Data to Display Cardiac Panel: No Data to Display Arterial Blood Gas: No Data to Display Venous Blood Gas: No Data to Display Pancreas Panel: No Data to Display Thyroid Panel: No Data to Display Infectious Disease: No Data to Display Blood Cultures: No Data to Display Toxicology Panel: No Data to Display Imaging and Studies Imaging and Studies Study information below may be from another EMR and interpreted by another provider. Please see original notes in EMR for more complete details. EKG Summary: 01/27/2023: Exam: Resting ECG Reason for Exam: epigatric pain Patient Location: E HR:74 bpm ECG Measurements Heart Rate 74 AXIS NM 142 P 77 QRSd 94 QRS 55 QT 390 T40 QTc 434 Conclusion sinus rate 74 normal axis no acute ischemic change There are no significant changes compared to prior EKG performed on 12/06/2022 a t 19:56. I have reviewed and I agree with the emergency room physician's ECG interpretation. Stress Test Summary: 03/12/23: Clinical Reason for Termination: Target HR Achieved Stress Symptoms: None Exercise duration: 9 min47 sec Highest Stage Reached: 3 Exercise capacity: 11.86 METs Angina Score: None G[place]ora Treadmill Score: 8.8 Rate Pressure Product: 34611 Stress ECG Conclusion 1. The resting electrocardiogram was within normal limits 2. Patient exercised on the Ronak protocol and completed a workload of 11.86 METS 3. Normal heart rate and blood pressure response to exercise. The patient achieved 94% of predicted heart rate for age 4. There was no electrocardiographic evidence of myocardial ischemia 5. No significant dysrhythmias [place] Treadmill Score is 8.8 which is Low risk. Anesthesia Assessment and Plan Anesthesia History Personal History: No History of Anesthesia Complications Family History: No Family History of Anesthesia Complications Exercise Tolerance Exercise Tolerance: Metabolic Equivalents>4 Pertinent Negatives Pertinent Negatives: No Symptoms of GERD Cardiac & Pulmonary Exam Cardiac Exam: Normal S1/S2 Heart Sounds Pulmonary Exam: Clear Bilateral Breath Sounds Implantable Cardiac Device Does patient have a Pacemaker or an ICD?: No Airway Exam Known Difficult Airway: No Mallampati Class: 1 Mouth Opening: Normal (> 3cm) Thyromental Distance: Less than 3 cm Neck Range of Motion: Full ROM Neck Circumference: Normal Teeth Condition: Normal Dentition ASA Classification ASA Score: ASA 2 Emergency Case?: No NPO Status NPO Status: NPO Clears >2 hours, Solids >8 hours Anesthesia Plan Resuscitation Status: Full Code Anesthesia Technique: General Anesthesia Airway Planned: Endotracheal Tube Monitors Used: Standard Monitors
[2024-01-02] MEDS: ceFAZolin 2 GM/50 ML BAG IVPB (08:00)
--- NOTE | 2024-01-02 11:20 | BOWEL_PTH ---
PATIENT: Siena Delarosa LOC: U#:[id number] AGE/SX: 63/F ROOM: RE01/02/[address]: Simone Edward MD : 1960 BED: A DIS: 01/04/2024 SPEC #: [id number] RECD: 01/02/24 13:09 STATUS: JANAE REQ #: [id number] TRENA: 01/02/24 11:[address]: Simone Edward DEPT: Surgical Specimen RECD BY: Winter Trejo ENTERED: 01/02/24 13:11 SP TYPE: Bowel OTHR DR: Kaylin Walden Tissues: 1 - BOWEL RESECTION(OTHER) 2 - BIOPSY BOWEL Procedures: GROSS AND MICRO LEVEL 4 GROSS AND MICRO LEVEL 5 Comments: [id number]
[2024-01-02] MEDS: Bupivacaine 0.25% Pres-Free 30 ML VIAL (12:26)
[2024-01-02] MEDS: Normal Saline 20 ML VIAL (12:28)
[2024-01-02] MEDS: Bupivacaine LIPOSOME/PF 133 MG/10 ML VIAL IJ (12:29)
--- NOTE | 2024-01-02 12:39 | ROE_ITS ---
Date of service: 01/02/24 Time of Service: 12:39 Operative Note Operative Note DATE OF PROCEDURE: 01/02/24 PRE-OP DIAGNOSIS: Chronic recurrent diverticulitis POST-OP DIAGNOSIS: same PROCEDURE: Laparoscopic sigmoid colon resection SURGEON: Simone Edward MILLING MACHINE OPERATOR GEAR: Elva Ramirez ANESTHESIA TYPE: Local By Surgeon and General LMA/ETT Refer to Anesthesia Record ESTIMATED BLOOD LOSS: 50 PATHOLOGY: other (Sigmoid colon, anastomotic donuts) COMPLICATIONS: None Patient was transported to: PACU Patient's condition: stable Indications: Siena is a 63-year-old woman with recurrent diverticulitis. She has had multiple outpatient flares, as well as inpatient hospitalizations for diverticulitis. She has had complications including a microperforation with abscess. She needs elective sigmoid resection to reduce likelihood of long-term morbidity and other complications. Findings: Sigmoid and left colonic diverticulosis Procedure Description: I met with Siena and Ojse beforehand, and reviewed the nature of the operation and our plan for today. Next, we went back to the operating room. She was assisted onto the OR table, and padded and supported appropriately. General endotracheal anesthesia was induced. The right arm was tucked, again taking great care to ensure that it was supported appropriately. She was placed in lithotomy positioning. Guillen urinary catheter was placed under aseptic conditions in the usual fashion. Next, we prepped and draped the anterior abdominal wall, as well as the perineum. We started with a 5 mm incision in the infraumbilical position. The peritoneum was entered under direct vision of an optical viewing port. Peritoneum was then insufflated. Another 5 mm port was established in the suprapubic position, as well as 1 in the right lower quadrant. These ports were placed under the vision of the laparoscope. Next, using local anesthetic with Exparel, I performed bilateral tap blocks. We then placed the patient in some steep Trendelenburg positioning with the left side down. The small bowel was swept up out of the pelvis. There were obvious adhesions of the sigmoid colon to the left lower quadrant abdominal sidewall. Diverticulosis was clearly observed in the sigmoid colon, and the descending colon as well. I retracted the sigmoid colon anteriorly, and scored the mesentery over the area of the JOSIE pedicle. A small window was made in the mesentery, that was able to dissected laterally until I could clearly see the left ureter down in the retroperitoneum. This portion of the retroperitoneum was swept posteriorly. I began the dissection heading cephalad, and used the LigaSure to divide the JOSIE pedicle. The mesentery and retroperitoneum were dissected up to the hepatic flexure. I then turned my attention to distal mobilization of the sigmoid. Again, using the ureter and the left iliopsoas fascia as identifying landmarks, I stayed well anterior to these mobilizing the mesentery of the sigmoid colon down into the pelvis. Careful dissection was used to take down adhesions of the sigmoid colon off of the left pelvic floor there were some adhesions adjacent to the left fallopian tube and ovary. The structures were kept anterior and protected during the dissection. Once the dissection down onto the proximal rectum was completed, I turned my attention back to the hepatic flexure. Although we had good mobility of the sigmoid, it was clear that we would need to take down the splenic flexure in order to have adequate length for a tension-free anastomosis. Therefore, using the laterally dissected segment at the sigmoid, I divided the white line of Toldt all the way up and around the hepatic flexure. There were some thick adhesions in the lateral and posterior part of the proximal descending colon, that seem consistent with an area of microperforation seen on her previous CT scan. Again, great care was taken to stay up out of the retroperitoneum as a dissection swept around the splenic flexure. The splenic mesentery and greater curvature were protected as I continued the dissection towards the midline. This allowed adequate mobilization to drop the splenic flexure down into the colon with enough length for a tension-free anastomosis. Next, I removed the suprapubic port under the vision of the laparoscope. There was no bleeding. I made a longitudinal Pfannenstiel type incision and dissected down to the rectus sheath. Small planes were developed cephalad and caudad, and I opened the midline fascia. A wound retractor was placed. This was, and the 5 mm port was reintroduced by way of the wound retractor. Next, I upsized the 5 mm port in the left lower quadrant to a 12. Then, using an Endo ADRIAN stapler with a purple load, I divided the distal sigmoid colon from the proximal rectum. The staple line was healthy appearing and hemostatic. The rectal mesentery looked hemostatic as well. We then removed the camera stopped insufflation and removed the From the wound protector. I delivered the dissected descending and sigmoid colon's up through the wound retractor onto the anterior abdominal wall. Operative towels were used to minimize the potential for spillage. The proximal portion of the splenic flexure and descending colon were then divided with a ADRIAN stapler as well. The staple line was then excised, and an 0 Prolene pursestring site suture was used to secure the anvil of a [address] I then moved down to the peritoneal position and performed a digital rectal exam. All felt normal. I introduced a 25 mm dilator and was able to pass this up into the rectal stump. This was upsized to a 28 mm dilator, prior to delivering the stapling portion of the EEA device. The device was opened out the anterior wall of the rectal stump. The anvil was attached, and great care was taken to ensure that the mesentery was well aligned and there was no twisting or herniation of any tissue under this. The EEA stapler was fired according to the manufactures instructions. Stapler was opened and removed. The donuts were examined. They were complete, and these were passed off with the sigmoid colon as operative specimens. The pelvis was then filled with saline, and a rigid proctoscope was introduced. Proximal portion of the large intestine was gently occluded, and the rectum was insufflated with air. There was no sign of any leak. The anastomosis was visualized with the proctoscope and appeared hemostatic and widely patent. The proctoscope was removed, and I broke scrub to change. Once I was sterile again, the wound retractor Was replaced, and the laparoscope was reintroduced with the pneumoperitoneum. Indocyanine green was administered, and the anastomosis was carefully visualized. It appeared adequately perfused. Again, it did not appear to be under any tension. The irrigant was all removed, and I took out the 12 mm port from the right lower quadrant. An endoscopic wound closure device was used to close this incision with 0 Vicryl stitches. The umbilical port and wound protector device were then removed. The anastomosis was observed under direct vision in the pelvis and left great. The rectus muscles were gently pexied in the midline with interrupted Vicryl sutures. Local anesthetic was also administered here. The fascia was then closed with 2-0 PDS suture. Skin and subcutaneous tissues were irrigated. Deep subcutaneous tissues were then reapproximated with interrupted Vicryl sutures, and the skin incisions were all closed with subcuticular stitches. Band-Aids were applied, Guillen catheter was removed, and the patient was extubated and wei sferred to the recovery unit. I spoke with Jose at the request of Siena to summarize the operative findings.
[2024-01-02] MEDS: ePHEDrine 25 MG/5 ML Syringe IVP (13:22)
--- NOTE | 2024-01-02 14:57 | PHA.REVIEW2 ---
Pharmacy Admission Review Admission Clinical Review Admission Pharmacy Review: amitriptyline Adverse Reaction (Intermediate, Verified 01/02/24 06:27) SVT on 50 mg erythromycin base Adverse Reaction (Intermediate, Verified 01/02/24 06:27) severe gi upset hydrochlorothiazide Adverse Reaction (Intermediate, Verified 01/02/24 06:27) Dizziness/Lighthead Resuscitation Status Full Code Height 5 ft 5 in Weight 57 kg Comments Comments/Follow Ups: POD #0 Laparoscopic sigmoid colon resection Pharmacy Admission Review Renal Dosing Medications needing adjustments: Reviewed (CrCl 50.15 mL/min) Anticoagulation DVT Prophylaxis: Reviewed Medications: Enoxaparin (40mg daily) Opiate Usage Evaluate Pain Scale/Pains Meds: Reviewed (PRN IVP hydromorphone - no doses given) Scheduled Bowel Reg ordered if on Opiates?: No Relevant Labs Electrolytes, C-Reactive P, ESR: Reviewed (No new labs for today) Cardiac Review BP, HR, EF%: Reviewed (BP and HR WNL) QTc Review QTc: Reviewed (434 from 01/27/23 - most recent EKG on file) IV to PO Switch IV Medications: Reviewed (acetaminophen, famotidine, hydromorphone, ketorolac and ondansetron) Home Meds Home Med List reviewed: Intervened Relevent Home Meds Not ordered & why?: Order put in for estradiol cream from patients home med list. Called nursing to see what days of the week patient uses (3 time a week) and if it can be brought in since it is non-formulary. Waiting to hear back from nursing. Updated home med list: removed colonoscopy preop meds, removed duplicate estradiol cream, removed duplicate B12 and removed cephalexin as per note that patient does not take it and there was no fill history Current Meds Current Medication Order Review: Reviewed Comments Comments/Follow Ups: POD #0 Laparoscopic sigmoid colon resection
[2024-01-02] MEDS: Normal Saline Flush 10 ML SYR IVP ×2 (15:17→20:37)
[2024-01-02] MEDS: FAMOTIDINE 20 MG in Normal Saline 100 ML 400 MG IVPB (15:18)
--- NOTE | 2024-01-02 15:29 | W.ANESPOSTOP ---
Postoperative Evaluation Date, Time and Location Date Performed: 01/02/24 Time Performed: 15:29 Patient Location: Med/Surg Vital Signs Most Recent Imported Vital Signs: Most Recent Vital Signs Temp Pulse Resp BP Pulse Ox 35.7 C L 59 L 12 106/63 100 01/02/24 15:11 01/02/24 15:11 01/02/24 15:11 01/02/24 15:11 01/02/24 15:11 Pain Score Most Recent Pain Score: Most Recent Pain Score Pain Level 6 01/02/24 14:03 Assessment Mental Status: Awake (Alert & Oriented to Patient Baseline) Airway and Respiratory Function: Patent airway with normal (patient baseline) respiratory exam Cardiovascular Function: Hemodynamically Stable Hydration Status: Adequately Hydrated Nausea & Vomiting: No Nausea or Vomiting Pain: Pain is tolerable per patient Peripheral Nerve Block: Patient did not receive a nerve block
[2024-01-02] MEDS: Lactated Ringers 1,000 ML 30 ML IV (15:31)
[2024-01-02] MEDS: Enoxaparin 40 MG/0.4 ML SYR SC (15:35)
[2024-01-02] MEDS: ACETAMINOPHEN 1,000 MG/100 ML BTL 400 MG IVPB ×2 (15:42→20:35)
[2024-01-02] MEDS: Ondansetron 4 MG/2 ML VIAL IVP (16:46)
[2024-01-02] MEDS: HYDROmorphone 2 MG/ML SYR 0.5 MG IVP (17:06)
[2024-01-02] MEDS: Amitriptyline 25 MG TAB PO (20:36)
[2024-01-02] MEDS: traMADol 50 MG TAB PO (20:49)
[2024-01-03] MEDS: ACETAMINOPHEN 1,000 MG/100 ML BTL 400 MG IVPB (01:20)
[2024-01-03] MEDS: FAMOTIDINE 20 MG in Normal Saline 100 ML 400 MG IVPB (02:10)
[2024-01-03] MEDS: traMADol 50 MG TAB PO ×3 (04:48→21:03)
[2024-01-03 06:39] LABS: Abs Immature Grans 0.04 10^3/uL (0.0-0.06); Absolute Basophil Count 0.02 10^3/uL (0.0-0.2); Absolute Eosinophil Count 0.02 10^3/uL (0.0-0.7); Absolute Lymphocyte Count 1.69 10^3/uL (1.2-3.4); Absolute Monocyte Count 0.87 10^3/uL (0.1-0.8); Absolute Neutrophil Count 6.86 10^3/uL (1.2-6.7); Basophils % 0.2 %; Eosinophils % 0.2 %; HCT 31.8 % (36.0-46.0); HGB 10.8 g/dL (11.2-15.7); Immature Grans % 0.4 %; Lymphocytes % 17.8 %; MCH 30.9 pg (27.0-33.0); MCV 91 fL (80-95); MPV 9.5 fL (8.0-11.0); Monocytes % 9.2 %; Neutrophils % 72.2 %; Platelet Count 203 10^3/uL (130-400); RBC 3.49 10^6/uL (3.93-5.22); RDW 13.2 % (11.7-14.6); RDW-SD 44.1 fL
[2024-01-03 06:43] LABS: Anion Gap 8.1 mmol/L (3-11); BUN 9 mg/dL (7-18); CO2 27.9 mmol/L (21.0-32.0); CREATININE 0.8 mg/dL (0.55-1.02); Calcium 8.4 mg/dL (8.5-10.1); Chloride 103 mmol/L (98-107); Estimated GFR 81.72 (mL/min/1.73m2); Glucose 98 mg/dL (74-106); Potassium 3.1 mmol/L (3.5-5.1); Sodium 139 mmol/L (136-145)
--- NOTE | 2024-01-03 07:23 | W.PM.PROGNOT ---
Date of Service Date of service: 01/03/24 Time of Service: 07:23 Assessment and Plan Assessment and plan (1) Diverticulitis of intestine with abscess: Status: Acute Assessment and plan: POD 1 s/p laparoscopic sigmoid colectomy Her pain is well controlled and she has been tolerating ambulation and clear liquid diet. Morning labs are stable. Will progress to post op diet this morning. Strongly encouraged ambulation and sitting in the chair. Continue pulmonary toilet Possible d/c today or tomorrow. Subjective Subjective Interval history since last seen: Siena reports she is feeling well this morning. She is pleasantly surprised that her pain is well controlled. She reports a few small bloody BMs. Denies any nausea or vomiting. Exam Const General: cooperative, healthy appearing and comfortable Orientation: alert and oriented x3 Resp Effort & Inspection: normal respiratory effort, no audible wheezes and no cough GI Inspection: normal to inspection and incision (Dressings in place) Palpation: soft, no guarding and tender Auscultation: hypoactive bowel sounds Objective Last Vital Signs Temp 37 C 01/02/24 18:55 Pulse 70 01/02/24 18:55 Resp 18 01/02/24 18:55 BP 104/60 01/02/24 18:55 Pulse Ox 98 01/02/24 18:55 Laboratory Results - last 24 hr 01/02/24 01/03/24 06:45 06:15 WBC 9.50 RBC 3.49 L Hgb 10.8 L Hct 31.8 L MCV 91 MCH 30.9 MCHC 34.0 RDW 13.2 Plt Count 203 MPV 9.5 Immature Gran % 0.4 Neutrophils % 72.2 Lymphocytes % 17.8 Monocytes % 9.2 Eosinophils % 0.2 Basophils % 0.2 Nucleated RBC % 0.0 Absolute Neutrophils 6.86 H Absolute Lymphocytes 1.69 Absolute Monocytes 0.87 H Absolute Eosinophils 0.02 Absolute Basophils 0.02 Sodium 139 Potassium 3.1 L Chloride 103 Carbon Dioxide 27.9 Anion Gap 8.1 BUN 9 Creatinine 0.8 Est GFR (CKD-EPI 2020) 81.72 Glucose 98 Calcium 8.4 L ABO/Rh A Positive Antibody Screen NEGATIVE Time Spent with Patient Time Spent with Patient: <25 minutes Time was spent: preparing to see the patient(eg.review tests), obtaining and/or reviewing separately otained hiistory and counseling the patient
[2024-01-03 07:29] VITALS: BP 129/61; PULSE 64; RESP 17; TEMP 36.4; O2SAT 100
[2024-01-03] MEDS: ACETAMINOPHEN 1,000 MG/100 ML BTL 100 MG IVPB ×3 (09:59→21:00)
[2024-01-03] MEDS: Cholecalciferol (Vitamin D3) 1,000 UNIT TAB 1000 UNITS PO (10:00)
[2024-01-03] MEDS: Cyanocobalamin 500 MCG TAB 1000 MCG PO (10:00)
--- NOTE | 2024-01-03 10:32 | INITIAL_ITS ---
Date of service: 01/03/24 Time of Service: 10:32 Care Management Initial Assmt Initial Assessment Reason for Hospitalization: laparoscopic sigmoid colon resection Functional Status/Living Situation Patient Presentation: Siena was sitting up in bed visiting with her partner Jose when CM met with her. She was pleasant and agreeable to conversation. Siena stated that she is feeling pretty good and expects to remain in the hospital for the next couple of days. 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 She denied the need for any services at discharge.. 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) Instrumental Activities of Daily Living (ADLs): Independent Medications Medication Management: No Issues/Barriers identified Physical Functioning/Mobility Assistive Device: none Advance Directives Advance Directives: Do you have an Advance Directive: Y 12/08/22 13:18 AD On File at [facility]: N 12/08/22 13:18 Date Asked 01/02/24 01/01/24 07:24 AD Date Reviewed COLST On File at [facility] COLST Date Scanned Code Status Resuscitation Status Full Code Insurance Coverage/Financial Issues Insurance: Medicare [place] BC/BS Care Team Visit Care Team Role Provider Type Kaylin Walden Primary Care Provider NON-[facility] STAFF PHYSICIAN Simone Edward MD Admit Provider [facility] STAFF PHYSICIAN Attending Provider Discharge Potential Discharge Needs: Surgical F/U Appt Anticipated Barriers to Discharge: None Identified Patient/Family Education Needs: Review discharge instructions, discuss Ask Me Three Transportation: Private vehicle Plan: Anticipate Siena will be discharged home with no new services when cleared by her surgeon. She will follow up with her community providers and plan of care and transport with family. CM will follow and continue to support discharge needs. PFSH All Active Problems Diverticulitis of intestine with abscess (Acute) Family history of malignant neoplasm of breast (Acute) IBS (irritable bowel syndrome) (Chronic) Reflux gastritis (Acute) Left-sided chest pain (Acute) Gross hematuria (Acute) Hepatic cyst (Acute) Hydronephrosis of right kidney (Acute) Diverticulitis (Acute) Diverticulitis large intestine (Acute) Rectal fissure (Acute) Unintentional weight loss (Acute) Steatorrhea (Acute) Thrombosed hemorrhoids (Acute) Thrombosed hemorrhoids (Acute) Diverticulitis of large intestine with perforation (Acute) Left shoulder pain (Acute) Paresthesias (Acute) Vision loss of right eye (Acute) Injury of right thumb (Acute) Skier's thumb vs bony contusion Medical History History of insertion of dental endosseous implant UTI (urinary tract infection) GERD (gastroesophageal reflux disease) Myalgia Muscle weakness Benign fasciculation-cramp syndrome Anxiety Urinary incontinence Peripheral neuropathy Seborrheic keratosis Labile hypertension History of IBS diarrhea prone Visual disturbance Surgical History (Updated 01/02/24 @ 14:16 by Erica Ross) History of colon resection (~01/2024) History of esophagogastroduodenoscopy (~03/2023) path sent H/O colonoscopy H/O basal cell carcinoma excision Family History Father CAD (coronary artery disease) Hypertension Depression Cancer SMALL CELL LUNG CANCER Mother Hypertension Anxiety Breast cancer Brother Hypertension Depression Stroke HEMORRHAGIC STROKE AT AGE 51 Sister Hypertension Multiple polyps of sigmoid colon Sjogrens syndrome Sister Depression Paternal Aunt Diabetes Stroke Maternal Grandfather Stroke Maternal Grandmother Hypothyroidism Stroke Maternal Uncle Colon cancer Social History Smoking/Tobacco Use Status: Former Tobacco Use Quit Date: 04/02/74 Smoking risk assessment performed?: Yes Alcohol Intake: current Alcohol Intake frequency: a few times a month Alcohol type: wine Details: 1 DRINK PER DAY Drug use: Never Substance use type: does not use Details: alcohol: t-2, one glass Housing: house Number of Children: 2 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
[2024-01-03] MEDS: POTASSIUM CHLORIDE 10 MEQ/100 ML BAG 100 MEQ IVINF (12:19)
[2024-01-03] MEDS: FAMOTIDINE 20 MG/50 ML BAG 200 MG IVPB (14:57)
[2024-01-03] MEDS: Normal Saline Flush 10 ML SYR IV (14:59)
[2024-01-03 15:19] VITALS: BP 146/84; PULSE 70; RESP 18; TEMP 36.8; O2SAT 100
--- NOTE | 2024-01-03 17:06 | CHAPLAIN ---
Siena was reading in bed when I visited this morning. She had surgery yesterday and said she still feels a bit foggy. she is hoping that the surgery will control the diverticulitis that she's experienced the last several years, with flare up happening around Labor Day the past three years. 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 She lives in [place], [place]. She share about her two kids, a daughter in [place] and her son in [place].
[2024-01-03] MEDS: Normal Saline Flush 10 ML SYR IVP ×2 (17:54→21:03)
[2024-01-03 18:12] LABS: HCT 33.5 % (36.0-46.0); HGB 11.2 g/dL (11.2-15.7)
[2024-01-03 18:22] VITALS: BP 127/70; PULSE 70; RESP 16; TEMP 36.7; O2SAT 100
[2024-01-03] MEDS: Amitriptyline 25 MG TAB PO (21:03)
[2024-01-04] MEDS: ACETAMINOPHEN 1,000 MG/100 ML BTL 100 MG IVPB (02:23)
[2024-01-04] MEDS: FAMOTIDINE 20 MG/50 ML BAG 200 MG IVPB (02:51)
[2024-01-04 06:31] LABS: Abs Immature Grans 0.03 10^3/uL (0.0-0.06); Absolute Basophil Count 0.03 10^3/uL (0.0-0.2); Absolute Eosinophil Count 0.05 10^3/uL (0.0-0.7); Absolute Lymphocyte Count 1.61 10^3/uL (1.2-3.4); Absolute Monocyte Count 0.74 10^3/uL (0.1-0.8); Basophils % 0.3 %; Eosinophils % 0.5 %; HCT 31.4 % (36.0-46.0); HGB 10.3 g/dL (11.2-15.7); Immature Grans % 0.3 %; Lymphocytes % 14.7 %; MCH 30.8 pg (27.0-33.0); MCHC 32.8 % (32.0-36.0); MCV 94 fL (80-95); MPV 9.4 fL (8.0-11.0); Monocytes % 6.8 %; Neutrophils % 77.4 %; Platelet Count 205 10^3/uL (130-400); RBC 3.34 10^6/uL (3.93-5.22); RDW 13.4 % (11.7-14.6); RDW-SD 46.2 fL; WBC 10.92 10^3/uL (4.4-10.8)
[2024-01-04 06:33] LABS: Absolute Neutrophil Count 8.45 10^3/uL (1.2-6.7)
[2024-01-04 07:04] LABS: Anion Gap 4.1 mmol/L (3-11); BUN 11 mg/dL (7-18); CO2 29.9 mmol/L (21.0-32.0); CREATININE 0.8 mg/dL (0.55-1.02); Calcium 8.3 mg/dL (8.5-10.1); Chloride 105 mmol/L (98-107); Estimated GFR 81.72 (mL/min/1.73m2); Ferritin 202 ng/mL (8-252); Glucose 90 mg/dL (74-106); Magnesium 1.9 mg/dL (1.8-2.4); Potassium 3.4 mmol/L (3.5-5.1); Sodium 139 mmol/L (136-145)
[2024-01-04 07:57] VITALS: BP 130/72; PULSE 64; RESP 17; TEMP 35.8; O2SAT 99
--- NOTE | 2024-01-04 09:02 | PDOC.CMPRO ---
Date of service: 01/04/24 Time of Service: 09:02 Care Management Progress Note Discharge Potential Discharge Needs: Surgical F/U Appt Anticipated Barriers to Discharge: None Identified Patient/Family Education Needs: Review discharge instructions, discuss Ask Me Three Transportation: Private vehicle Plan: Anticipate Siena will be discharged home with no new services when cleared by her surgeon. She will follow up with her community providers and plan of care and transport with family. CM will follow and continue to support discharge needs. SDOH(Care Management) Screening Will the Patient Participate in the Screening?: Unable to obtain
--- NOTE | 2024-01-04 09:08 | W.NUTRFU ---
Date of service: 01/03/24 Time of Service: 11:00 Nutrition Note NOTE: Visited briefly with Siena on the 3rd just before lunch. Tolerated post op diet for breakfast - planning on beatriz and soft cooked carrots for lunch. Denies nausea/vomiting. Confirms some weight loss with hx of diverticulitis management. Discharge anticipated for of per surgery note. Gave pt education on postop/low fiber diet and increasing fiber as tolerated to high fiber diet slowly after 2-3 weeks. Educated on healthy weight gain and upper her protein intake to 1g per pound body weight and considering a scoop of whey protein per day and a scoop of collagen protein per day to help reach that goal and contribute to muscle synthesis (whey) and gut health (collagen). Recommend probiotics Rx to continue after dischage. Time Spent in Nutritional Counseling and Treatment: 10
[2024-01-04] MEDS: ACETAMINOPHEN 1,000 MG/100 ML BTL 400 MG IVPB (09:36)
[2024-01-04] MEDS: Cyanocobalamin 500 MCG TAB 1000 MCG PO (09:37)
[2024-01-04] MEDS: Normal Saline Flush 10 ML SYR IVP (09:37)
[2024-01-04] MEDS: Cholecalciferol (Vitamin D3) 1,000 UNIT TAB 1000 UNITS PO (09:37)
[2024-01-04] MEDS: traMADol 50 MG TAB PO (10:20)
[2024-01-04 11:00] VITALS: BP 104/55; PULSE 102; RESP 15; TEMP 36.4; O2SAT 96
--- NOTE | 2024-01-04 12:57 | DSE_ITS ---
Date of service: 01/04/24 Time of Service: 12:59 DS: Diagnosis Discharge Diagnosis (1) Diverticulitis of intestine with abscess: Status: Acute Asessment and Plan: Discharge home with outpatient postoperative follow-up Discharge Plan Disposition Patient Disposition: Home Condition: Improving Discharge Details Reason For Visit: Chronic Diverticulitis Admit Date/Time: 01/02/24 06:15 Admit Provider: Simone Edward Attending Provider: Simone Edward Primary Care Provider: Kaylin Walden Hospital Course Hospital Course: Siena is 63 years old. She has had multiple episodes of chronic complicated recurrent diverticulitis she underwent elective sigmoid colectomy on January 01. Diet was slowly advanced, and her pain was controlled without the need for intravenous antibiotics by the morning of the fourth. She was discharged home with outpatient postoperative follow-up Home Meds and New Rx's Prescriptions: New tramadol 50 mg tablet 50 mg PO Q8H PRNQty: 12 0RF Rx Instructions: Take 1 tablet by mouth if needed up to every 8 hours if needed for severe pain Continued estradiol 0.01 % (0.1 mg/gram) cream 0.25 appful vaginal .3 times a week amitriptyline 25 mg tablet 25 mg PO QHS cholecalciferol (vitamin D3) 25 mcg (1,000 unit) capsule 25 mcg PO DAILY cyanocobalamin (vitamin B-12) 1,000 mcg capsule 1,000 mcg PO DAILY ondansetron HCl 8 mg tablet 8 mg PO Q12H Qty: 3 0RF Patient Comments: pt. vomitted after Discharge Instructions Additional Instructions: Siena, I am glad you are recovering nicely after surgery, and I hope things continue to improve over the days to come. As we talked about before discharge, I did like you to be up and moving around a little more more each day. You should be getting tired, and having little bit of achiness, but nothing that is outright painful. I generally recommend that patients get up and do some light walking, or even some easy hiking on simple terrain for some good basic cardiovascular exercise. Lifting should be kept to less than 5 to 10 pounds, or perhaps something like a gallon of milk. After getting home, plan to take a shower sometime within the next 24 hours or so. When you are in the shower, remove the dressings from your belly. Wash the incisions all with warm soapy water. After that, you are welcome to replace a Band-Aid on any of the incisions if that is more comfortable with your clothing. Alternatively, if things feel okay with no Band-Aid, you do not need to cover the incisions at all. I would like you to go back to using your Metamucil once you get home. Start with 8 g/day. If it is most comfortable to break this into 4 g in the morning a nd 4 g in the evening, that is fine. Otherwise, I think it is reasonable to start eating and drinking what ever you have a taste for. Your appetite may be a little low at first, but it should be improving a little bit more more each day. Also like we talked about, alternating Tylenol and ibuprofen will be fine for postoperative pain. Have also gone ahead and placed a prescription for tramadol if you need it for more severe pain. The office is made a follow-up appointment for you on the at 11:45 in the morning. I look forward to seeing you then. If you need anything in the meantime, please just call me at [phone] Activity:: No heavy lifting Equipment/Supplies:: No Equipment Needed Diet:: As Tolerated DS: Summary Time Spent with Patient providing and/or coordinating discharge services: Less than 30 minutes Status at Discharge Functional status at discharge: independent ambulation Overall status at discharge: patient is progressing back to baseline Mental Status: mental status grossly normal Speech and Movement: speech and movement normal Mood: congruent mood Affect: normal affect Quality:SDOH Health Related Social Needs: No Data to Display Exam GI Other: Abdomen is soft and nondistended. Appropriate incisional tenderness. Mild ecchymosis at the Pfannenstiel incision Psych Mental Status: mental status grossly normal Speech and Movement: speech and movement normal Mood: congruent mood Affect: normal affect DS: Data Vitals/I&O Vitals and I&O: Vital Signs Temperature 97.5 F L 01/04/24 11:00 Temperature Source Temporal Artery Scan 01/04/24 07:57 Pulse 102 H 01/04/24 11:00 Pulse Rhythm Regular 01/02/24 14:03 Pulse 66 01/02/24 13:41 Respiratory Rate 15 01/04/24 11:00 Respiratory Effort Non-Labored 01/02/24 14:03 Respiratory Depth Shallow 01/02/24 14:03 Respiratory Pattern Normal 01/02/24 14:03 Blood Pressure 104/55 L 01/04/24 11:00 Blood Pressure Mean 67 01/02/24 13:40 Pulse Oximetry 96 01/04/24 11:00 Respiratory End-tidal CO2 28 01/02/24 13:40 Oxygen Delivery Method Room Air 01/04/24 11:00 Oxygen Flow Rate 0 01/04/24 11:00 Pain Level 6 01/04/24 10:20 Intake & Output 01/03/24 01/04/24 01/04/24 23:59 11:59 23:59 Intake Total 600 / 1304 200 / 200 Output Total 2275 / 3550 1565 / 1565 Balance -1675 / -2246 -1365 / -1365 Intake: IV 350 / 1054 200 / 200 Oral 250 / 250 Output: Urine 1650 / 2900 1550 / 1550 Stool 625 / 650 15 / 15 Other: Urine Color Yellow Yellow Urine Appearance Clear Clear Urine Odor None None Comment Some blood Stool Occult Blood Positive Stool Size Moderate Small Stool Characteristics Liquid Bloody Bloody Voiding Methods Toilet Toilet Data Completed and Pending Labs on day of discharge: Labs from last 24 hours 01/04/24 01/03/24 06:10 18:05 WBC 10.92 H RBC 3.34 L Hgb 10.3 L 11.2 Hct 31.4 L 33.5 L MCV 94 MCH 30.8 MCHC 32.8 RDW 13.4 Plt Count 205 MPV 9.4 Immature Gran % 0.3 Neutrophils % 77.4 Lymphocytes % 14.7 Monocytes % 6.8 Eosinophils % 0.5 Basophils % 0.3 Nucleated RBC % 0.0 Absolute Neutrophils 8.45 H Absolute Lymphocytes 1.61 Absolute Monocytes 0.74 Absolute Eosinophils 0.05 Absolute Basophils 0.03 Sodium 139 Potassium 3.4 L Chloride 105 Carbon Dioxide 29.9 Anion Gap 4.1 BUN 11 Creatinine 0.8 Est GFR (CKD-EPI 2020) 81.72 Glucose 90 Calcium 8.3 L Magnesium 1.9 Ferritin 202 PFSH All Active Problems Diverticulitis of intestine with abscess (Acute) Family history of malignant neoplasm of breast (Acute) IBS (irritable bowel syndrome) (Chronic) Reflux gastritis (Acute) Left-sided chest pain (Acute) Gross hematuria (Acute) Hepatic cyst (Acute) Hydronephrosis of right kidney (Acute) Diverticulitis (Acute) Diverticulitis large intestine (Acute) Rectal fissure (Acute) Unintentional weight loss (Acute) Steatorrhea (Acute) Thrombosed hemorrhoids (Acute) Thrombosed hemorrhoids (Acute) Diverticulitis of large intestine with perforation (Acute) Left shoulder pain (Acute) Paresthesias (Acute) Vision loss of right eye (Acute) Injury of right thumb (Acute) Skier's thumb vs bony contusion Medical History History of insertion of dental endosseous implant UTI (urinary tract infection) GERD (gastroesophageal reflux disease) Myalgia Muscle weakness Benign fasciculation-cramp syndrome Anxiety Urinary incontinence Peripheral neuropathy Seborrheic keratosis Labile hypertension History of IBS diarrhea prone Visual disturbance Surgical History History of colon resection (~01/2024) History of esophagogastroduodenoscopy (~03/2023) path sent H/O colonoscopy H/O basal cell carcinoma excision Family History Father CAD (coronary artery disease) Hypertension Depression Cancer SMALL CELL LUNG CANCER Mother Hypertension Anxiety Breast cancer Brother Hypertension Depression Stroke HEMORRHAGIC STROKE AT AGE 51 Sister Hypertension Multiple polyps of sigmoid colon Sjogrens syndrome Sister Depression Paternal Aunt Diabetes Stroke Maternal Grandfather Stroke Maternal Grandmother Hypothyroidism Stroke Maternal Uncle Colon cancer Social History Smoking/Tobacco Use Status: Former Tobacco Use Quit Date: 04/02/74 Smoking risk assessment performed?: Yes Alcohol Intake: current Alcohol Intake frequency: a few times a month Alcohol type: wine Details: 1 DRINK PER DAY Drug use: Never Substance use type: does not use Details: alcohol: t-2, one glass Housing: house Number of Children: 2 current occupation: [employer] Current gender identity: female What is your relationship status?: Panel score (0-1 are the most socially isolated patients): 0 Do you feel safe at home: Yes Do you feel safe in your relationship?: Yes Additional Social history: UTAP Time Spent with Patient Time Spent with Patient: <45 minutes Time was spent: preparing to see the patient(eg.review tests), indepentently interpreting results, counseling the patient and care coordination
--- NOTE | 2024-01-04 13:31 | CMDISCH_ITS ---
Date of service: 01/04/24 Time of Service: 13:31 LACE Index Scoring Tool Questions: Length of Stay (in days): 2 Was the patient admitted via the E.D.?: No E.D. Visits: 1 Answers: Total Score: 3 Risk of Readmission: Low Risk Care Management Discharge Plan Reason for Hospitalization: sigmoid resection Discharge Plan: Siena will be discharged home with no new services. She will follow up with her community providers and plan of care and transport with family. Patient/Family Education Needs: Review discharge instructions, limitations, follow up plan and discuss [facility] Health Related Social Needs: No Data to Display
== END 2024-01-04 14:50 | disposition home or self-care (01) | DRG 331 ==
LOC: PDS 06:15 → MS 14:00
PROVIDERS: Surgery; Admitting Provider Surgery; PCP Nurse Practitioner Adult Health; Visit Provider Surgery
PROC: 0DTN4ZG Resection of Sigmoid Colon, Percutaneous Endoscopic Approach, Hand-Assisted (ICD-10-PCS; CPT 44204; principal; 2024-01-02 07:30)
DX: K57.32 Diverticulitis of large intestine without perforation or abscess without bleeding (principal); K58.0 Irritable bowel syndrome with diarrhea; K21.9 Gastro-esophageal reflux disease without esophagitis; M62.81 Muscle weakness (generalized); G25.89 Other specified extrapyramidal and movement disorders; I10 Essential (primary) hypertension; G62.9 Polyneuropathy, unspecified; F41.9 Anxiety disorder, unspecified; R32 Unspecified urinary incontinence
CPT/HCPCS: 44207; 44213; 00123; 36415; 80048; 86850; 86900; 86901; 88305; J1650; 82728; 83735; 85014; 85018; 85025; 88307; C9290; J0131; J0665; J0690; J1100; J1171; J1836; J1885; J2250; J2371; J2405; J2704; J3010; J3480

== ENCOUNTER 2024-01-10 09:49 | Outpatient (CLI) | payer MEDICARE, BC, SELFPAY ==
[2024-01-10 14:49] LABS: HGB 11.1 g/dL (11.2-15.7)
[2024-01-10 15:57] LABS: Iron 60 ug/dL (50-170); Total Iron Binding Capacity 257 ug/dL (250-450); Transferrin Sat 23 % (15-50)
== END 2024-01-10 09:50 | disposition home or self-care (01) ==
LOC: LBO 09:49
PROVIDERS: PCP Nurse Practitioner Adult Health; Visit Provider Surgery
DX: D64.9 Anemia, unspecified (principal)
CPT/HCPCS: 36415; 83540; 83550; 85018

== ENCOUNTER → 2024-01-15 11:30 | Outpatient (BNVA) | payer MEDICARE, BC, SELFPAY | PROVIDERS: PCP Nurse Practitioner Adult Health; Referring Provider Nurse Practitioner Adult Health; Visit Provider Surgery | DX: Z90.49 Acquired absence of other specified parts of digestive tract (principal); Z48.815 Encounter for surgical aftercare following surgery on the digestive system ==

== ENCOUNTER → 2024-04-04 12:50 | Outpatient (BNVA) | payer MEDICARE, BC, SELFPAY | PROVIDERS: PCP Nurse Practitioner Adult Health; Referring Provider Nurse Practitioner Adult Health; Visit Provider Physical Therapy Assistant | DX: K92.1 Melena (principal); D64.9 Anemia, unspecified | CPT/HCPCS: 99214 ==

== ENCOUNTER → 2024-05-12 12:53 | Outpatient (BNVA) | payer MEDICARE, BC, SELFPAY | PROVIDERS: PCP Nurse Practitioner Adult Health; Referring Provider Nurse Practitioner Adult Health; Visit Provider Nurse Practitioner Gerontology | DX: R31.0 Gross hematuria (principal); R32 Unspecified urinary incontinence; Z87.440 Personal history of urinary (tract) infections | CPT/HCPCS: 81003; 99214 ==

== ENCOUNTER 2024-05-22 01:14 | Outpatient (CLI) | payer MEDICARE, BC, SELFPAY ==
[2024-05-22 10:01] LABS: HGB 13.5 g/dL (11.2-15.7)
[2024-05-22 10:48] LABS: Iron 89 ug/dL (50-170); Total Iron Binding Capacity 298 ug/dL (250-450); Transferrin Sat 30 % (15-50)
== END 2024-05-22 01:15 | disposition home or self-care (01) ==
LOC: LBO 01:14
PROVIDERS: PCP Nurse Practitioner Adult Health; Visit Provider Surgery
DX: K92.1 Melena (principal)
CPT/HCPCS: 36415; 83540; 83550; 85018

== ENCOUNTER → 2024-08-18 13:19 | Outpatient (BNVA) | payer MEDICARE, BC, SELFPAY | PROVIDERS: PCP Nurse Practitioner Adult Health; Referring Provider Nurse Practitioner Adult Health; Visit Provider Student in an Organized Health Care Education/Training Program | DX: D23.62 Other benign neoplasm of skin of left upper limb, including shoulder | CPT/HCPCS: 11402 ==

== ENCOUNTER 2024-08-18 14:06 | Outpatient (REF) | payer MEDICARE, BC, SELFPAY ==
--- NOTE | 2024-08-18 14:10 | SKI_PTH ---
PATIENT: Siena Delarosa LOC: [facility] U#:[id number] AGE/SX: 63/F ROOM: RE08/18/[address]: López Almendarez : 1960 BED: DIS: 08/18/2024 SPEC #: [id number] RECD: 08/18/24 18:05 STATUS: JANAE RELonny #: [id number] TRENA: 08/18/24 14:[address]: López Almendarez DEPT: Surgical Specimen RECD BY: Winter Trejo ENTERED: 08/18/24 18:06 SP TYPE: ROMA MCDONNELL DR: Kaylin Walden Tissues: 1 - SKIN BIOPSY(SHAVE/PUNCH) Procedures: GROSS AND MICRO LEVEL 4 Comments: [id number]
== END 2024-08-18 14:07 | disposition home or self-care (01) ==
LOC: LBN 14:06
PROVIDERS: PCP Nurse Practitioner Adult Health; Referring Provider Student in an Organized Health Care Education/Training Program; Visit Provider Student in an Organized Health Care Education/Training Program
DX: D23.9 Other benign neoplasm of skin, unspecified
CPT/HCPCS: 88305

== ENCOUNTER 2024-10-16 21:04 | Outpatient (REF) | payer MEDICARE, BC, SELFPAY ==
[2024-10-16 15:10] LABS: Glucose Negative (Negative)
[2024-10-16 15:50] LABS: RBC 0-2 HPF (0-2)
[2024-10-16 15:51] LABS: C & S Indicated? No
== END 2024-10-16 21:05 | disposition home or self-care (01) ==
LOC: LBN 21:04
PROVIDERS: PCP Nurse Practitioner Adult Health; Visit Provider Nurse Practitioner Gerontology
DX: R30.0 Dysuria (principal)
CPT/HCPCS: 87077; 81003; 81015; 87086; 87186

== ENCOUNTER → 2024-11-18 09:20 | Outpatient (BNVA) | payer MEDICARE, BC, SELFPAY | PROVIDERS: PCP Nurse Practitioner Adult Health; Referring Provider Nurse Practitioner Adult Health; Visit Provider Nurse Practitioner Gerontology | DX: R31.0 Gross hematuria (principal); N39.0 Urinary tract infection, site not specified | CPT/HCPCS: 99213; 81002 ==